=== PATIENT | female | born 1950 | race Caucasian/White ===

== ENCOUNTER 2016-07-30 | Outpatient (CLI) | payer MEDICARE, OTHER | END 2016-07-30 18:50 | disposition EMS.NT | DX: R07.9 Chest pain, unspecified (principal) ==

== ENCOUNTER 2016-08-07 | Outpatient (CLI) | payer MEDICARE, OTHER | END 2016-08-07 23:59 | disposition short-term general hospital (02) | DX: R07.9 Chest pain, unspecified (principal) | CPT/HCPCS: A0425; A0427 ==

== ENCOUNTER 2016-08-19 | Outpatient (CLI) | payer MEDICARE, OTHER | END 2016-08-19 08:35 | disposition short-term general hospital (02) | CPT/HCPCS: A0425; A0427 ==

== ENCOUNTER 2016-09-05 | Outpatient (CLI) | payer MEDICARE, OTHER | END 2016-09-05 20:26 | disposition short-term general hospital (02) | DX: R07.9 Chest pain, unspecified (principal) | CPT/HCPCS: A0425; A0427 ==

== ENCOUNTER 2016-09-14 | Outpatient (CLI) | payer MEDICARE, OTHER | END 2016-09-14 19:20 | disposition short-term general hospital (02) | DX: R07.9 Chest pain, unspecified (principal) | CPT/HCPCS: A0425; A0427; A0888 ==

== ENCOUNTER 2016-09-14 10:11 | Outpatient (CLI) | payer MEDICARE, OTHER | END 2016-09-14 10:12 | disposition home or self-care (01) | DX: Z12.31 Encounter for screening mammogram for malignant neoplasm of breast (principal) ==

== ENCOUNTER 2016-10-28 22:27 | Outpatient (CLI) | payer MEDICARE, OTHER | END 2016-10-28 22:28 | disposition home or self-care (01) | DX: G47.33 Obstructive sleep apnea (adult) (pediatric) (principal); Z68.36 Body mass index [BMI] 36.0-36.9, adult ==

== ENCOUNTER 2016-11-10 16:02 | Outpatient (CLI) | payer MEDICARE, OTHER | END 2016-11-10 23:59 | disposition critical access hospital (66) | DX: M79.652 Pain in left thigh (principal); M25.512 Pain in left shoulder; S00.511A Abrasion of lip, initial encounter; W01.0XXA Fall on same level from slipping, tripping and stumbling without subsequent striking against object, initial encounter; Y92.481 Parking lot as the place of occurrence of the external cause | CPT/HCPCS: A0425; A0429 ==

== ENCOUNTER 2016-11-10 16:22 | Emergency (ER) | payer MEDICARE, OTHER ==
[2016-11-10] MEDS ORDERED: ACETAMINOPHEN 325 MG TABLET PO STA ×2 (18:25→18:33)
[2016-11-10] MEDS ORDERED: ACETAMINOPHEN 325 MG TABLET PO ONE (18:28)
== END 2016-11-10 19:15 | disposition home or self-care (01) ==
DX: S00.81XA Abrasion of other part of head, initial encounter (principal); W01.198A Fall on same level from slipping, tripping and stumbling with subsequent striking against other object, initial encounter; Y92.488 Other paved roadways as the place of occurrence of the external cause; I10 Essential (primary) hypertension; E78.00 Pure hypercholesterolemia, unspecified; I25.10 Atherosclerotic heart disease of native coronary artery without angina pectoris; I25.2 Old myocardial infarction; Z79.01 Long term (current) use of anticoagulants; K21.9 Gastro-esophageal reflux disease without esophagitis; M19.90 Unspecified osteoarthritis, unspecified site
CPT/HCPCS: 70450; 73552; 73564; 99283; 99284; A9270

== ENCOUNTER 2016-12-13 15:22 | Outpatient (CLI) | payer MEDICARE, OTHER | END 2016-12-13 15:23 | disposition home or self-care (01) | LOC: SC 15:22 | PROVIDERS: ATTEND Nurse Practitioner Family | DX: G47.33 Obstructive sleep apnea (adult) (pediatric) (principal) | CPT/HCPCS: 99214; G0463; 99212 ==

== ENCOUNTER 2017-01-31 06:53 | Outpatient (CLI) | payer MEDICARE, OTHER ==
[2017-01-31 19:33] LABS: CALCIUM 9.4 mg/dL (8.5-10.3); CREATININE 0.7 mg/dL (0.4-1.0); POTASSIUM 3.2 mmol/L (3.5-5.0)
== END 2017-01-31 06:54 ==
LOC: LAB.WCP 06:53
PROVIDERS: ATTEND Family Medicine
DX: M79.89 Other specified soft tissue disorders (principal)
CPT/HCPCS: 36415; 80048

== ENCOUNTER 2017-08-22 08:00 | Outpatient (CLI) | payer MEDICARE, OTHER ==
[2017-08-22 13:20] LABS: ALBUMIN 3.8 g/dL (3.2-5.5); ALBUMIN/GLOBULIN RATIO 1.3 (1.0-2.2); ALKALINE PHOSPHATASE 88 IU/L (42-121); ALT ALANINE AMINOTRANSFERASE 21 IU/L (10-60); AST ASPARTATE AMINOTRANSFERASE 24 IU/L (10-42); BILIRUBIN,TOTAL 0.6 mg/dL (0.2-1.0); BUN - BLOOD UREA NITROGEN 20 mg/dL (6-20); CALCIUM 9.1 mg/dL (8.5-10.3); CARBON DIOXIDE - CO2 30 mmol/L (21-32); CHLORIDE 99 mmol/L (101-111); CHOL/HDL RATIO 3.9 (<4.4); CHOLESTEROL 185 mg/dL; CREATININE 0.7 mg/dL (0.4-1.0); GFR - MDRD 83 (>89); GLUCOSE 133 mg/dL (70-100); HDL CHOLESTEROL 48 mg/dL; LDL CHOLESTEROL,CALCULATED 91 mg/dL; LDL/HDL RATIO 1.9 (<4.4); SODIUM 138 mmol/L (135-145); TOTAL PROTEIN 6.7 g/dL (6.7-8.2); VLDL CHOLESTEROL 46 mg/dL
== END 2017-08-22 08:01 | disposition home or self-care (01) ==
LOC: LAB.WCP 08:00
PROVIDERS: ATTEND Family Medicine
DX: E78.5 Hyperlipidemia, unspecified (principal)
CPT/HCPCS: 36415; 80053; 80061; 83721

== ENCOUNTER 2017-08-29 17:29 | Emergency (ER) | payer MEDICARE, OTHER ==
[2017-08-29 18:53] LABS: BASOPHILS % (AUTO) 0.7 %; EOSINOPHILS # (AUTO) 0.1 10^3/uL (0.0-0.7); EOSINOPHILS % (AUTO) 1.8 %; HGB - HEMOGLOBIN 13.4 g/dL (12.0-16.0); LYMPHOCYTES % (AUTO) 31.5 %; MEAN CORPUSCULAR HEMOGLOBIN 29.9 pg (27.0-31.0); MEAN CORPUSCULAR HGB CONC 32.8 g/dL (32.0-36.0); MEAN CORPUSCULAR VOLUME 91.4 fL (81.0-99.0); MEAN PLATELET VOLUME 6.9 fL (7.9-10.8); MONOCYTES # (AUTO) 0.7 10^3/uL (0.0-1.0); MONOCYTES % (AUTO) 11.4 %; NEUTROPHILS # (AUTO) 3.4 10^3/uL (1.5-6.6); NEUTROPHILS % (AUTO) 54.6 %; PLT - PLATELET COUNT 322 10^3/uL (130-450); RED BLOOD COUNT 4.49 10^6/uL (4.20-5.40); RED CELL DISTRIBUTION WIDTH 13.5 % (12.0-15.0); WHITE BLOOD COUNT 6.3 x10^3/uL (4.8-10.8)
[2017-08-29 19:05] LABS: ALBUMIN 3.8 g/dL (3.2-5.5); ALBUMIN/GLOBULIN RATIO 1.2 (1.0-2.2); BILIRUBIN,TOTAL 0.4 mg/dL (0.2-1.0); CALCIUM 9.1 mg/dL (8.5-10.3); CREATININE 0.8 mg/dL (0.4-1.0); TOTAL PROTEIN 7.1 g/dL (6.7-8.2)
--- NOTE | 2017-08-29 19:52 | ED Physician Documentation ---
PD HPI CHEST PAIN - Stated complaint Stated Complaint: CHEST TIGHTNESS - Chief complaint Chief Complaint: Cardiac - History obtained from History obtained from: Patient - History of Present Illness Timing - onset: How many days ago (4-5) Timing - onset during: Light activity Timing - duration: Hours (she has had some chest dightness and aching feeling onset shortly after first dose of new statin medication.) Timing - details: Abrupt onset, Still present, Waxing and waning (notes it worse after dose of med each day (only thought of med causing the symptoms after noting the worsening after the med a few different days).) Quality: Tightness, Aching Location: Substernal, Left chest Radiation: Back Improved by: No: Rest, Oxygen Worsened by: Inspiration Associated symptoms: Shortness of air. No: Diaphoresis Similar symptoms before: Has not had sx before Recently seen: Clinic (regular exam and had cholesterol med changed due to insurance coverage.) Review of Systems Constitutional: denies: Fever, Chills Nose: denies: Rhinorrhea / runny nose, Congestion Throat: denies: Sore throat Cardiac: reports: Chest pain / pressure. denies: Palpitations, Pedal edema, Calf pain Respiratory: denies: Cough, Wheezing GI: denies: Abdominal Pain, Nausea, Vomiting, Diarrhea : denies: Dysuria Skin: denies: Rash Neurologic: denies: Generalized weakness, Focal weakness Psychiatric: reports: Anxiety. denies: Insomnia PD PAST MEDICAL HISTORY - Past Medical History Cardiovascular: Hypertension, High cholesterol, Coronary artery disease, Angina , [place] Respiratory: None Endocrine/Autoimmune: None GI: None, GERD, Hiatal hernia : None HEENT: None Psych: Depression Musculoskeletal: Osteoarthritis, Osteoporosis Derm: None - Past Surgical History Past Surgical History: Yes General: Hiatal hernia repair Ortho: Knee replacement Cardiovascular: Coronary stent HEENT: Cataracts, Tonsil/Adenoidectomy - Present Medications Home Medications: Ambulatory Orders Medication Instructions Recorded Confirmed Ascorbic Acid [Acerola C] 500 mg PO DAILY 12/18/12 11/10/16 Aspirin 81 mg PO DAILY 12/18/12 11/10/16 Biotin 1 mg PO DAILY 12/18/12 11/10/16 Calcium Carbonate [Tums] 500 mg PO DAILY 12/18/12 11/10/16 Cholecalciferol (Vitamin D3) 3,000 unit PO DAILY 12/18/12 11/10/16 [Vitamin D] Clopidogrel [Plavix] 75 mg PO DAILY 12/18/12 11/10/16 Duloxetine HCl [Cymbalta] 60 mg PO DAILY 12/18/12 11/10/16 Multivitamin [Multivitamins] 1 each PO DAILY 12/18/12 11/10/16 Nitroglycerin [Nitrostat] 0.4 mg SL Q5MIN PRN 12/18/12 11/10/16 [place]-3/Dha/Epa/Fish Oil [Fish Oil 1 each PO DAILY 12/18/12 11/10/16 [place]-3 Softgel] Rosuvastatin Calcium [Crestor] 40 mg PO DAILY 12/18/12 11/10/16 Valsartan [Diovan] 80 mg PO BID 12/18/12 11/10/16 Acetaminophen 1,000 mg PO Q8HR 09/11/15 11/10/16 Magnesium 250 mg PO DAILY 07/15/16 11/10/16 Metoprolol Succinate 75 mg PO DAILY 11/10/16 11/10/16 - Allergies Allergies/Adverse Reactions: Allergies Allergy/AdvReac Type Severity Reaction Status Date / Time desvenlafaxine Allergy Mild Headache Verified 07/15/16 10:48 [Desvenlafaxine] phenobarbital Allergy Mild depression Verified 07/15/16 10:48 desvenlafaxine succinate * Allergy Unknown Unknown Verified 07/15/16 10:48 [From Pristiq] bupropion HCl * Allergy Headache Verified 07/15/16 10:48 [From Wellbutrin] ibuprofen Allergy Unknown Verified 11/10/16 16:32 lidocaine Allergy Unknown Verified 11/10/16 16:32 propoxyphene HCl * Allergy Headache Verified 07/15/16 10:48 [From Darvon] aripiprazole [From Abilify] AdvReac tremors Verified 07/15/16 10:48 citalopram AdvReac Headache Verified 07/15/16 10:48 indomethacin AdvReac unknown Verified 07/15/16 10:48 tape Allergy Unknown Uncoded 11/10/16 16:32 - Social History Does the pt smoke?: No Smoking Status: Never smoker Does the pt drink ETOH?: Yes Does the pt have substance abuse?: No - Immunizations Immunizations are current?: Yes - POLST Patient has POLST: Yes POLST Status: Full Code PD ED PE NORMAL - Vitals Vital signs reviewed: Yes - General General: Alert and oriented X 3, No acute distress, Well developed/nourished - HEENT HEENT: Moist mucous membranes, Pharynx benign - Neck Neck: Supple, no meningeal sign, No adenopathy, No JVD - Cardiac Cardiac: RRR, No murmur - Respiratory Respiratory: Clear bilaterally, Other (some tenderness to palpation left chest parasternal. No rash nor sores. ) Results - Vitals Vitals: Oxygen O2 Source Room air - EKG (time done) 17:38 Rate: Rate (enter#) (74) Rhythm: NSR Sunflower: Normal Intervals: Normal AR QRS: Normal Ischemia: Normal ST segments. No: ST elevation c/w ischemia, ST depression, T wave inversion - Labs Labs: Laboratory Tests 08/29/17 08/29/17 08/29/17 18:48 18:48 18:48 WBC 6.3 RBC 4.49 Hgb 13.4 Hct 41.0 MCV 91.4 MCH 29.9 MCHC 32.8 RDW 13.5 Plt Count 322 MPV 6.9 L Neut # 3.4 Lymph # 2.0 [place] # 0.7 Eos # 0.1 Baso # 0.0 Absolute Nucleated RBC 0.00 Nucleated RBC % 0.0 Sodium 137 Potassium 2.8 L Chloride 96 L Carbon Dioxide 31 Anion Gap 10.0 BUN 23 H Creatinine 0.8 Estimated GFR (MDRD) 71 L Glucose 135 H Calcium 9.1 Total Bilirubin 0.4 AST 27 ALT 24 Alkaline Phosphatase 97 Troponin I < 0.04 Total Protein 7.1 Albumin 3.8 Globulin 3.3 Albumin/Globulin Ratio 1.2 Lipase 12 L PD MEDICAL DECISION MAKING - ED course Complexity details: considered differential (chest pressure for long duration that troponin should be present if infarct. She connects the onset of symptoms with just after taking new statin cholesterol med (had not had problems with Lipitor prior to it). She is going to stop the statin med and follow up with her PMD.), d/w patient Departure - Departure Disposition: 01 Home, Self Care Clinical Impression: Chest discomfort, Hypokalemia Condition: Stable Record reviewed to determine appropriate education?: Yes Instructions: Hypokalemia Dc, ED Chest Pain NonCardiac Follow-Up: Alayna Willis DO [Primary Care Provider] - Comments: Continue usual medications except for the new cholesterol medicine. Discontinue that for now. Use Maalox or Mylanta if needed for some chest discomfort as it may be esophageal related to the burping and gas. No signs of heart attack or heart injury at this time. Recheck if not improving over the next couple of days. Your potassium was low and so use her potassium supplement twice daily for the next week. Discharge Date/Time: 08/29/17 20:27
[2017-08-29] MEDS ORDERED: LIDOCAINE VISCOUS 2% 15 ML UDC MM STA (20:13)
[2017-08-29] MEDS ORDERED: MAG HYDROX/AL HYDROX/SIMETH 30 ML UDC PO STA (20:13)
[2017-08-29] MEDS ORDERED: POTASSIUM BICARB 25 MEQ TABLET PO STA (20:13)
[2017-08-29 20:17] VITALS: BP 150/82
== END 2017-08-29 20:27 | disposition home or self-care (01) ==
LOC: ED 17:29
DX: R07.89 Other chest pain (principal); E87.6 Hypokalemia; R94.31 Abnormal electrocardiogram [ECG] [EKG]; I25.10 Atherosclerotic heart disease of native coronary artery without angina pectoris; I25.2 Old myocardial infarction; I10 Essential (primary) hypertension; E78.00 Pure hypercholesterolemia, unspecified; Z96.659 Presence of unspecified artificial knee joint; Z95.5 Presence of coronary angioplasty implant and graft; Z79.82 Long term (current) use of aspirin
CPT/HCPCS: 36415; 80053; 83690; 84484; 85025; 93005; 99283; 99284; A9270

== ENCOUNTER 2017-09-06 08:00 | Outpatient (CLI) | payer MEDICARE, OTHER ==
[2017-09-06 12:50] LABS: CREATININE 0.7 mg/dL (0.4-1.0)
== END 2017-09-06 08:01 | disposition home or self-care (01) ==
LOC: LAB.WCP 08:00
PROVIDERS: ATTEND Family Medicine
DX: E87.6 Hypokalemia (principal)
CPT/HCPCS: 36415; 80048

== ENCOUNTER 2017-10-20 09:39 | Outpatient (CLI) | payer MEDICARE, OTHER ==
--- NOTE | 2017-10-21 11:15 | Mammography Report ---
DIGITAL SCREENING MAMMOGRAM: 10/20/2017 CLINICAL INDICATION: A 67-year-old, for screening. COMPARISON: 08/2016, 08/2014, 10/2013, 03/2013, 03/2012, 06/2010. TECHNIQUE: Routine CC and MLO projections were obtained of the breasts. FINDINGS: The breasts again demonstrate scattered fibroglandular densities bilaterally. Coarse and punctate, typically benign calcifications are present. No suspicious masses, clustered microcalcifications, or regions of architectural distortion are identified. IMPRESSION: BENIGN FINDINGS. RECOMMENDATION: ROUTINE ANNUAL SCREENING UNLESS OTHERWISE CLINICALLY INDICATED. BIRADS CATEGORY 2-BENIGN FINDINGS. STANDARD QUALIFYING STATEMENTS: 1. This examination was reviewed with the aid of Computer-Aided Detection (CAD). 2. A negative or benign imaging report should not delay biopsy if clinically suspicious findings are present. Consider surgical consultation if warranted. More than 5% of cancers are not identified by imaging. 3. Dense breasts may obscure an underlying neoplasm. TD: 10/21/2017 11:15
== END 2017-10-20 09:40 | disposition home or self-care (01) ==
LOC: DI.N 09:39
PROVIDERS: ATTEND Family Medicine
DX: Z12.31 Encounter for screening mammogram for malignant neoplasm of breast (principal)
CPT/HCPCS: 77067

== ENCOUNTER 2017-12-23 11:25 | Outpatient (CLI) | payer MEDICARE, OTHER ==
[2017-12-23 19:16] LABS: CALCIUM 9.4 mg/dL (8.5-10.3); CREATININE 0.7 mg/dL (0.4-1.0)
== END 2017-12-23 11:26 | disposition home or self-care (01) ==
LOC: LAB.WCP 11:25
PROVIDERS: ATTEND Family Medicine
DX: E87.6 Hypokalemia (principal)
CPT/HCPCS: 36415; 80048

== ENCOUNTER 2018-09-28 13:49 | Outpatient (CLI) | payer MEDICARE, OTHER ==
--- NOTE | 2018-09-29 09:48 | XRAY Report ---
Reason: BILATERAL HIP AND PELVIS PAIN Procedure Date: 09/28/2018 Accession Number: [id number] / [id number] Procedure: XR - Hips 2V BILAT CPT Code: FULL RESULT: EXAM: BILATERAL HIP RADIOGRAPHY EXAM DATE: 09/28/2018 02:49 PM. CLINICAL HISTORY: Bilateral hip and pelvis pain. COMPARISON: FEMUR 2V LT 11/10/2016 5:25 PM. TECHNIQUE: 2 views each. FINDINGS: Bones: Normal. No fractures or bone lesion. Right Hip: Status post right total hip arthroplasty without evidence of hardware failure or dislocation. Left Hip: Mild to moderate joint space narrowing. No dislocation. Soft Tissues: Normal. No soft tissue swelling. IMPRESSION: No fracture or dislocation. Status post right total hip arthroplasty and degenerative changes on the left. RADIA
== END 2018-09-28 13:50 | disposition home or self-care (01) ==
LOC: DI 13:49
PROVIDERS: ATTEND Anesthesiology Pain Medicine
DX: M16.12 Unilateral primary osteoarthritis, left hip (principal); Z96.641 Presence of right artificial hip joint; M25.551 Pain in right hip; R10.2 Pelvic and perineal pain
CPT/HCPCS: 73521

== ENCOUNTER 2019-03-13 08:00 | Outpatient (CLI) | payer MEDICARE, OTHER ==
[2019-03-13 18:41] LABS: BASOPHILS % (AUTO) 0.6 %; EOSINOPHILS # (AUTO) 0.2 10^3/uL (0.0-0.7); EOSINOPHILS % (AUTO) 3.5 %; LYMPHOCYTES # (AUTO) 1.4 10^3/uL (1.5-3.5); LYMPHOCYTES % (AUTO) 29.3 %; MEAN CORPUSCULAR HEMOGLOBIN 30.8 pg (27.0-31.0); MEAN CORPUSCULAR HGB CONC 31.4 g/dL (32.0-36.0); MEAN CORPUSCULAR VOLUME 98.2 fL (81.0-99.0); MEAN PLATELET VOLUME 9.4 fL (7.9-10.8); MONOCYTES # (AUTO) 0.6 10^3/uL (0.0-1.0); MONOCYTES % (AUTO) 12.6 %; NEUTROPHILS # (AUTO) 2.7 10^3/uL (1.5-6.6); NEUTROPHILS % (AUTO) 53.8 %; PLT - PLATELET COUNT 293 10^3/uL (130-450); RED BLOOD COUNT 4.54 10^6/uL (4.20-5.40); WHITE BLOOD COUNT 4.9 x10^3/uL (4.8-10.8)
[2019-03-13 18:51] LABS: ALBUMIN 3.7 g/dL (3.2-5.5); ALBUMIN/GLOBULIN RATIO 1.2 (1.0-2.2); ALKALINE PHOSPHATASE 62 IU/L (42-121); ALT ALANINE AMINOTRANSFERASE 22 IU/L (10-60); AST ASPARTATE AMINOTRANSFERASE 30 IU/L (10-42); BILIRUBIN,TOTAL 0.5 mg/dL (0.2-1.0); BUN - BLOOD UREA NITROGEN 19 mg/dL (6-20); CALCIUM 9.8 mg/dL (8.5-10.3); CARBON DIOXIDE - CO2 29 mmol/L (21-32); CHLORIDE 100 mmol/L (101-111); CHOL/HDL RATIO 3.1 (<4.4); CHOLESTEROL 148 mg/dL; CREATININE 0.6 mg/dL (0.4-1.0); GFR - MDRD 99 (>89); GLUCOSE 115 mg/dL (70-100); HDL CHOLESTEROL 47 mg/dL; LDL CHOLESTEROL,CALCULATED 69 mg/dL; LDL/HDL RATIO 1.5 (<4.4); SODIUM 141 mmol/L (135-145); TOTAL PROTEIN 6.8 g/dL (6.7-8.2); VLDL CHOLESTEROL 32 mg/dL
[2019-03-15 11:16] LABS: HEPATITIS C ANTIBODY NON-REACTIVE (NON-REACTIVE)
== END 2019-03-13 23:59 | disposition home or self-care (01) ==
LOC: LAB.WCP 08:00
PROVIDERS: ATTEND Family Medicine
DX: E87.6 Hypokalemia (principal); E78.5 Hyperlipidemia, unspecified; I25.10 Atherosclerotic heart disease of native coronary artery without angina pectoris; Z11.59 Encounter for screening for other viral diseases
CPT/HCPCS: 36415; 80053; 80061; 83721; 85025; 86803

== ENCOUNTER 2019-05-04 12:56 | Outpatient (CLI) | payer MEDICARE, OTHER ==
--- NOTE | 2019-05-07 11:14 | Mammography Report ---
Reason: ROUTINE MAMMO Procedure Date: 05/04/2019 Accession Number: [id number] / [id number] Procedure: MGN - Screening Mammo Dig Bilat CPT Code: FULL RESULT: EXAM: Screening Mammo Dig Bilat DATE: 05/04/2019 1:21 PM CLINICAL HISTORY: Screening encounter. History of early menses. TECHNIQUE: (B) - Bilateral CC and MLO views were obtained. COMPARISON: 10/20/2017 through 05/26/2009. PARENCHYMAL PATTERN: (A) - The breast(s) demonstrate(s) scattered fibroglandular densities. FINDINGS: There are coarse typically benign calcifications. There are no suspicious masses, calcifications, or areas of distortion. IMPRESSION: Benign findings. BI-RADS category 2. RECOMMENDATION: (ANNUAL) - Recommend routine annual screening mammography. BI-RADS CATEGORY: (2) - Benign Findings. STANDARD QUALIFYING STATEMENTS: 1. This examination was not reviewed with the aid of Computer-Aided Detection (CAD). 2. A negative or benign imaging report should not preclude biopsy if clinically suspicious findings are present. 3. Dense breasts may obscure an underlying neoplasm. 4. This examination was reviewed without the aid of 3D breast imaging (tomosynthesis).
== END 2019-05-04 12:57 | disposition home or self-care (01) ==
LOC: DI.N 12:56
DX: Z12.31 Encounter for screening mammogram for malignant neoplasm of breast (principal)
CPT/HCPCS: 77067

== ENCOUNTER 2019-08-14 08:00 | Outpatient (CLI) | payer MEDICARE, OTHER ==
[2019-08-14 18:42] LABS: BASOPHILS # (AUTO) 0.1 10^3/uL (0.0-0.1); BASOPHILS % (AUTO) 0.9 %; EOSINOPHILS # (AUTO) 0.2 10^3/uL (0.0-0.7); EOSINOPHILS % (AUTO) 3.1 %; HGB - HEMOGLOBIN 14.2 g/dL (12.0-16.0); LYMPHOCYTES # (AUTO) 1.2 10^3/uL (1.5-3.5); LYMPHOCYTES % (AUTO) 21.2 %; MEAN CORPUSCULAR HEMOGLOBIN 31.3 pg (27.0-31.0); MEAN CORPUSCULAR HGB CONC 31.5 g/dL (32.0-36.0); MEAN CORPUSCULAR VOLUME 99.3 fL (81.0-99.0); MEAN PLATELET VOLUME 9.4 fL (7.9-10.8); MONOCYTES # (AUTO) 0.7 10^3/uL (0.0-1.0); MONOCYTES % (AUTO) 11.3 %; NEUTROPHILS # (AUTO) 3.7 10^3/uL (1.5-6.6); NEUTROPHILS % (AUTO) 63.2 %; PLT - PLATELET COUNT 285 10^3/uL (130-450); RED BLOOD COUNT 4.54 10^6/uL (4.20-5.40); RED CELL DISTRIBUTION WIDTH 12.6 % (12.0-15.0); WHITE BLOOD COUNT 5.9 x10^3/uL (4.8-10.8)
[2019-08-14 19:14] LABS: ALBUMIN 3.7 g/dL (3.2-5.5); ALBUMIN/GLOBULIN RATIO 1.2 (1.0-2.2); ALKALINE PHOSPHATASE 73 IU/L (42-121); ALT ALANINE AMINOTRANSFERASE 26 IU/L (10-60); AST ASPARTATE AMINOTRANSFERASE 27 IU/L (10-42); BILIRUBIN,TOTAL 0.6 mg/dL (0.2-1.0); BUN - BLOOD UREA NITROGEN 18 mg/dL (6-20); CALCIUM 9.6 mg/dL (8.5-10.3); CARBON DIOXIDE - CO2 31 mmol/L (21-32); CHLORIDE 102 mmol/L (101-111); CHOL/HDL RATIO 3.1 (<4.4); CHOLESTEROL 157 mg/dL; CREATININE 0.6 mg/dL (0.4-1.0); GFR - MDRD 99 (>89); GLUCOSE 116 mg/dL (70-100); HDL CHOLESTEROL 51 mg/dL; LDL CHOLESTEROL,CALCULATED 71 mg/dL; LDL/HDL RATIO 1.4 (<4.4); SODIUM 144 mmol/L (135-145); TOTAL PROTEIN 6.7 g/dL (6.7-8.2); VLDL CHOLESTEROL 35 mg/dL
== END 2019-08-14 23:59 | disposition home or self-care (01) ==
LOC: LAB.WCP 08:00
PROVIDERS: ATTEND Family Medicine
DX: I10 Essential (primary) hypertension (principal); E78.5 Hyperlipidemia, unspecified
CPT/HCPCS: 36415; 80053; 80061; 83721; 85025

== ENCOUNTER 2019-09-27 13:33 | Outpatient (CLI) | payer MEDICARE, OTHER | END 2019-09-27 13:34 | disposition short-term general hospital (02) | LOC: EMS 13:33 | PROVIDERS: ATTEND Surgery | DX: R42 Dizziness and giddiness (principal) | CPT/HCPCS: A0425; A0429 ==

== ENCOUNTER 2019-10-03 22:08 | Outpatient (CLI) | payer MEDICARE, OTHER | END 2019-10-03 23:59 | disposition short-term general hospital (02) | LOC: EMS 22:08 | PROVIDERS: ATTEND Surgery | DX: R07.89 Other chest pain (principal); R11.0 Nausea | CPT/HCPCS: A0425; A0433 ==

== ENCOUNTER 2020-02-20 07:48 | Outpatient (CLI) | payer MEDICARE, OTHER ==
[2020-02-20 12:18] LABS: ALBUMIN 3.7 g/dL (3.2-5.5); ALBUMIN/GLOBULIN RATIO 1.1 (1.0-2.2); ALKALINE PHOSPHATASE 86 IU/L (42-121); ALT ALANINE AMINOTRANSFERASE 22 IU/L (10-60); AST ASPARTATE AMINOTRANSFERASE 27 IU/L (10-42); BILIRUBIN,TOTAL 0.5 mg/dL (0.2-1.0); BUN - BLOOD UREA NITROGEN 20 mg/dL (6-20); CALCIUM 9.2 mg/dL (8.5-10.3); CARBON DIOXIDE - CO2 28 mmol/L (21-32); CHLORIDE 101 mmol/L (101-111); CHOL/HDL RATIO 3.2 (<4.4); CHOLESTEROL 158 mg/dL; CREATININE 0.8 mg/dL (0.4-1.0); GLUCOSE 136 mg/dL (70-100); HDL CHOLESTEROL 50 mg/dL; LDL CHOLESTEROL,CALCULATED 77 mg/dL; LDL/HDL RATIO 1.5 (<4.4); MAGNESIUM 1.8 mg/dL (1.7-2.8); SODIUM 138 mmol/L (135-145); VLDL CHOLESTEROL 31 mg/dL
[2020-02-20 12:25] LABS: BASOPHILS % (AUTO) 0.4 %; EOSINOPHILS # (AUTO) 0.1 10^3/uL (0.0-0.7); EOSINOPHILS % (AUTO) 2.7 %; HGB - HEMOGLOBIN 14.7 g/dL (12.0-16.0); LYMPHOCYTES # (AUTO) 1.1 10^3/uL (1.5-3.5); MEAN CORPUSCULAR HEMOGLOBIN 31.4 pg (27.0-31.0); MEAN CORPUSCULAR HGB CONC 33.3 g/dL (32.0-36.0); MEAN CORPUSCULAR VOLUME 94.2 fL (81.0-99.0); MEAN PLATELET VOLUME 9.4 fL (7.9-10.8); MONOCYTES # (AUTO) 0.5 10^3/uL (0.0-1.0); MONOCYTES % (AUTO) 11.4 %; NEUTROPHILS # (AUTO) 2.7 10^3/uL (1.5-6.6); NEUTROPHILS % (AUTO) 60.1 %; PLT - PLATELET COUNT 311 10^3/uL (130-450); RED BLOOD COUNT 4.68 10^6/uL (4.20-5.40); RED CELL DISTRIBUTION WIDTH 12.9 % (12.0-15.0); WHITE BLOOD COUNT 4.5 x10^3/uL (4.8-10.8)
[2020-02-20 12:37] LABS: HB2 TOTAL 15.6 g/dL; HEMOGLOBIN A1C 0.62 g/dL; HEMOGLOBIN A1C % 5.8 % (4.6-6.2)
== END 2020-02-20 23:59 | disposition home or self-care (01) ==
LOC: LAB.WCP 07:48
PROVIDERS: ATTEND Family Medicine
DX: I10 Essential (primary) hypertension (principal); R73.01 Impaired fasting glucose; E87.6 Hypokalemia; E78.5 Hyperlipidemia, unspecified; E83.42 Hypomagnesemia
CPT/HCPCS: 36415; 80053; 80061; 83036; 83721; 83735; 84443; 85025

== ENCOUNTER 2020-03-28 08:00 | Outpatient (CLI) | payer MEDICARE, OTHER ==
[2020-03-28 18:50] LABS: CALCIUM 9.8 mg/dL (8.5-10.3); CREATININE 0.8 mg/dL (0.4-1.0)
== END 2020-03-28 23:59 | disposition home or self-care (01) ==
LOC: LAB.WCP 08:00
PROVIDERS: ATTEND Family Medicine
DX: E87.6 Hypokalemia (principal)
CPT/HCPCS: 36415; 80048

== ENCOUNTER 2020-04-06 14:27 | Emergency (ER) | payer MEDICARE, OTHER ==
[2020-04-06] MEDS ORDERED: KETAMINE 500 MG/10 ML VIAL IVP STA (14:46)
--- NOTE | 2020-04-06 14:48 | ED Physician Documentation ---
PD HPI MHE - Stated complaint Stated Complaint: MHE - Chief complaint Chief Complaint: MHE - History obtained from History obtained from: Patient - Additional information Additional information: 70-year-old woman with history of anxiety and depression, she has had worse depression over the last couple of months and has her Cymbalta increased initially to 90 mg on March 18 and then last week up to 120 mg. Despite this, she is profoundly depressed, finds no [place] in anything. Just laying in bed all day. Not eating. No suicidal ideation, but wonders if it might be better if she just went to sleep and did not wake up. Review of Systems Constitutional: reports: Fatigue. denies: Fever, Chills Cardiac: reports: Reviewed and negative Respiratory: reports: Reviewed and negative PD PAST MEDICAL HISTORY - Past Medical History Cardiovascular: Hypertension, High cholesterol, Coronary artery disease, Angina, [place] Respiratory: None Endocrine/Autoimmune: None GI: None, GERD, Hiatal hernia : None HEENT: None Psych: Depression Musculoskeletal: Osteoarthritis, Osteoporosis Derm: None - Past Surgical History Past Surgical History: Yes General: Hiatal hernia repair Ortho: Knee replacement Cardiovascular: Coronary stent HEENT: Cataracts, Tonsil/Adenoidectomy - Present Medications Home Medications: Ambulatory Orders Medication Instructions Recorded Confirmed Ascorbic Acid [Acerola C] 500 mg PO DAILY 12/18/12 11/10/16 Aspirin 81 mg PO DAILY 12/18/12 11/10/16 Biotin 1 mg PO DAILY 12/18/12 11/10/16 Calcium Carbonate [Tums] 500 mg PO DAILY 12/18/12 11/10/16 Cholecalciferol (Vitamin D3) 3,000 unit PO DAILY 12/18/12 11/10/16 [Vitamin D] Clopidogrel [Plavix] 75 mg PO DAILY 12/18/12 11/10/16 Duloxetine HCl [Cymbalta] 60 mg PO DAILY 12/18/12 11/10/16 Multivitamin [Multivitamins] 1 each PO DAILY 12/18/12 11/10/16 Nitroglycerin [Nitrostat] 0.4 mg SL Q5MIN PRN 12/18/12 11/10/16 [place]-3/Dha/Epa/Fish Oil [Fish Oil 1 each PO DAILY 12/18/12 11/10/16 [place]-3 Softgel] Rosuvastatin Calcium [Crestor] 40 mg PO DAILY 12/18/12 11/10/16 Valsartan [Diovan] 80 mg PO BID 12/18/12 11/10/16 Acetaminophen 1,000 mg PO Q8HR 09/11/15 11/10/16 Magnesium 250 mg PO DAILY 07/15/16 11/10/16 Metoprolol Succinate 75 mg PO DAILY 11/10/16 11/10/16 - Allergies Allergies/Adverse Reactions: Allergies Allergy/AdvReac Type Severity Reaction Status Date / Time desvenlafaxine Allergy Mild Headache Verified 04/06/20 14:43 [Desvenlafaxine] phenobarbital Allergy Mild depression Verified 04/06/20 14:43 desvenlafaxine succinate * Allergy Unknown Unknown Verified 04/06/20 14:43 [From Pristiq] bupropion HCl * Allergy Headache Verified 04/06/20 14:43 [From Wellbutrin] ibuprofen Allergy Unknown Verified 04/06/20 14:43 lidocaine Allergy Unknown Verified 04/06/20 14:43 propoxyphene HCl * Allergy Headache Verified 04/06/20 14:43 [From Darvon] aripiprazole [From Abilify] AdvReac tremors Verified 04/06/20 14:43 citalopram AdvReac Headache Verified 04/06/20 14:43 indomethacin AdvReac unknown Verified 04/06/20 14:43 tape Allergy Unknown Uncoded 11/10/16 16:32 - Social History Does the pt smoke?: No Smoking Status: Never smoker Does the pt drink ETOH?: Yes Does the pt have substance abuse?: No - Immunizations Immunizations are current?: Yes - POLST Patient has POLST: Yes POLST Status: Full Code PD ED PE NORMAL - Vitals Vital signs reviewed: Yes - General General: Alert and oriented X 3, Other (Tearful at times) - HEENT HEENT: PERRL, EOMI - Neck Neck: Supple, no meningeal sign, No bony TTP - Neuro Neuro: Alert and oriented X 3, Normal speech Results - Vitals Vitals: Vital Signs - 24 hr 04/06/20 04/06/20 04/06/20 14:43 16:00 16:30 Temperature 36.4 C L Heart Rate 76 71 63 Respiratory 16 15 16 Rate Blood Pressure 147/100 H 128/84 H 133/82 H O2 Saturation 98 96 96 04/06/20 17:00 Temperature Heart Rate 65 Respiratory 20 Rate Blood Pressure 128/77 O2 Saturation 94 Oxygen O2 Source Room air - Labs Labs: Laboratory Tests 04/06/20 04/06/20 14:58 14:58 WBC 6.2 RBC 4.98 Hgb 16.1 H Hct 46.0 MCV 92.4 MCH 32.3 H MCHC 35.0 RDW 12.0 Plt Count 278 MPV 9.0 Neut # (Auto) 4.1 Lymph # (Auto) 1.4 L [place] # (Auto) 0.7 Eos # (Auto) 0.1 Baso # (Auto) 0.0 Absolute Nucleated RBC 0.00 Nucleated RBC % 0.0 Sodium 136 Potassium 2.8 L Chloride 100 L Carbon Dioxide 25 Anion Gap 11.0 BUN 16 Creatinine 0.8 Estimated GFR (MDRD) 71 L Glucose 129 H Calcium 9.7 Total Bilirubin 0.7 AST 27 ALT 27 Alkaline Phosphatase 76 Total Protein 7.3 Albumin 4.0 Globulin 3.3 Albumin/Globulin Ratio 1.2 Lipase 20 L Ethyl Alcohol < 5.0 PD MEDICAL DECISION MAKING - ED course ED course: 70-year-old woman with severe depression and anhedonia. Not much anxiety right now. We discussed options for treatment including but not limited to hospitalization, ketamine infusion and/or tele-psychiatric consultation and she opted for the ketamine. She did have some bad dissociative effects from the ketamine but this resolved with time and Early cessation of the drip. Once the side effects wore off she did feel like her depression had improved and declined further help tonight. She did have some low potassium which was treated orally and she is on a potassium supplement and was advised to go from twice daily to 3 times daily for a few days. Departure - Departure Disposition: 01 Home, Self Care Clinical Impression: Hypokalemia Depression Qualifiers: Depression Type: major depressive disorder Major depression recurrence: recurrent Active/Remission status: currently active Major depression episode severity: severe Psychotic features: without psychotic features Qualified Code(s): F33.2 - Major depressive disorder, recurrent severe without psychotic features Condition: Good Record reviewed to determine appropriate education?: Yes Instructions: Hypokalemia Dc, ED Depression Comments: Potassium fairly low at 2.8 today, for the next few days recommend increasing your potassium supplement from twice daily to 3 times daily. Follow-up with your psychiatrist tomorrow. Recommend dosing of Cymbalta at 90 mg a day pending follow-up.
[2020-04-06] MEDS ORDERED: KETAMINE 40 MG in SODIUM CHLORIDE 0.9% 100ML 100 ML IV STA (14:52)
[2020-04-06 15:16] LABS: BASOPHILS % (AUTO) 0.5 %; EOSINOPHILS # (AUTO) 0.1 10^3/uL (0.0-0.7); EOSINOPHILS % (AUTO) 1.1 %; HGB - HEMOGLOBIN 16.1 g/dL (12.0-16.0); LYMPHOCYTES # (AUTO) 1.4 10^3/uL (1.5-3.5); LYMPHOCYTES % (AUTO) 21.9 %; MEAN CORPUSCULAR HEMOGLOBIN 32.3 pg (27.0-31.0); MEAN CORPUSCULAR VOLUME 92.4 fL (81.0-99.0); MONOCYTES # (AUTO) 0.7 10^3/uL (0.0-1.0); MONOCYTES % (AUTO) 10.5 %; NEUTROPHILS # (AUTO) 4.1 10^3/uL (1.5-6.6); NEUTROPHILS % (AUTO) 65.8 %; PLT - PLATELET COUNT 278 10^3/uL (130-450); RED BLOOD COUNT 4.98 10^6/uL (4.20-5.40); WHITE BLOOD COUNT 6.2 x10^3/uL (4.8-10.8)
[2020-04-06 15:27] LABS: ALBUMIN/GLOBULIN RATIO 1.2 (1.0-2.2); ALKALINE PHOSPHATASE 76 IU/L (42-121); ALT ALANINE AMINOTRANSFERASE 27 IU/L (10-60); AST ASPARTATE AMINOTRANSFERASE 27 IU/L (10-42); BILIRUBIN,TOTAL 0.7 mg/dL (0.2-1.0); BUN - BLOOD UREA NITROGEN 16 mg/dL (6-20); CALCIUM 9.7 mg/dL (8.5-10.3); CARBON DIOXIDE - CO2 25 mmol/L (21-32); CHLORIDE 100 mmol/L (101-111); CREATININE 0.8 mg/dL (0.4-1.0); GLUCOSE 129 mg/dL (70-100); LIPASE 20 U/L (22-51); SODIUM 136 mmol/L (135-145); TOTAL PROTEIN 7.3 g/dL (6.7-8.2)
[2020-04-06] MEDS ORDERED: ONDANSETRON 4 MG/2 ML VIAL IVP STA (15:43)
[2020-04-06] MEDS ORDERED: POTASSIUM CHLORIDE 20 MEQ TABLET PO STA (16:02)
[2020-04-06 17:07] VITALS: BP 128/77
== END 2020-04-06 17:27 | disposition home or self-care (01) ==
LOC: ED 14:27
DX: E87.6 Hypokalemia (principal); F33.2 Major depressive disorder, recurrent severe without psychotic features; I10 Essential (primary) hypertension; E78.00 Pure hypercholesterolemia, unspecified; I25.10 Atherosclerotic heart disease of native coronary artery without angina pectoris; Z95.5 Presence of coronary angioplasty implant and graft; I25.2 Old myocardial infarction; Z96.659 Presence of unspecified artificial knee joint; Z79.82 Long term (current) use of aspirin
CPT/HCPCS: 36415; 80053; 83690; 85025; 96365; 96375; 99283; 99284; A9270; 80320

== ENCOUNTER 2020-05-28 15:28 | Outpatient (CLI) | payer MEDICARE, OTHER ==
[2020-05-28 15:56] LABS: ALBUMIN 3.8 g/dL (3.2-5.5); ALBUMIN/GLOBULIN RATIO 1.2 (1.0-2.2); BILIRUBIN,TOTAL 0.9 mg/dL (0.2-1.0); CALCIUM 9.4 mg/dL (8.5-10.3); CREATININE 0.9 mg/dL (0.4-1.0); TOTAL PROTEIN 6.9 g/dL (6.7-8.2)
[2020-05-28] MEDS ORDERED: GADOBUTROL 10 MMOL/10 ML VIAL ONE (17:12)
== END 2020-05-28 15:29 | disposition home or self-care (01) ==
LOC: DI 15:28
PROVIDERS: ATTEND Family Medicine
DX: K14.6 Glossodynia (principal); E83.42 Hypomagnesemia; I10 Essential (primary) hypertension; I25.10 Atherosclerotic heart disease of native coronary artery without angina pectoris; E78.5 Hyperlipidemia, unspecified; Z53.9 Procedure and treatment not carried out, unspecified reason
CPT/HCPCS: 36415; 80053

== ENCOUNTER 2020-06-09 11:17 | Outpatient (CLI) | payer MEDICARE, OTHER ==
--- NOTE | 2020-06-09 12:06 | SLEEP CARE CONSULTATION ---
Information from patient questionnaire entered by Chetna Ayala. I have reviewed and concur with the information entered by Chetna Ayala. This document represents the service I personally performed and the decisions made by , Elin Crouch ARNP. History of Present Illness Service Date and Time: 06/09/2020 1117 Reason for Visit: New patient, Previously diagnosed sleep apnea (mild -14.5 AHI in 2015), Re-establish care Chief Complaint: reports: Unrefreshed sleep, Snoring, Fatigue, Other (she has clinical depression since February 2020). denies: Insomnia, Excessive daytime sleepiness, Observed pauses in breathing (she sleeps alone), Frequent awakenings at night Date of Onset: snoring - years, unrefreshed sleep - 6 months Usual bedtime: 10:30 pm Time it takes to fall asleep: 30 mins Snores at night: Yes Observed to quit breathing while asleep: No Sleeps alone due to snoring: Yes Number of times waking at night: 1 Reasons for waking at night: reports: Snoring, Bathroom. denies: Choking, Gasping for air Toss, Turn, or Twitch while sleeping: Yes Recalls having dreams: Yes Usually gets out of bed at: 9am - 1 pm Feels refreshed in the morning: No Morning headache: Yes (sometimes; every day, dull headache, can last all day) Sleepy or fatigued during the day: Yes (sometimes) Ever fallen asleep while driving: No Takes day naps: No (not now) Dreams during day naps: Yes Prior sleep studies: Yes Year and Where: 2015 - [facility] Type of Sleep Study: Polysomnography Additional HPI information: FABIO DAVIDSON was previously diagnosed to have mild, AHI 14.5, obstructive sleep apnea-hypopnea syndrome in 2017 and returns today to reestablish care. She continues to have issues with snoring and unrefreshed sleep. She has been having some clinical depression since February of this year and her PCP has sent her here to see if her sleep apnea is contributing factor. She states she never followed through since her last appointment in 2017 and did not start CPAP therapy. She and her no longer sleep in the same room due to snoring, hers and his. She does not know if her fatigue and sleepiness during the day are due to her depression or sleep apnea. - Parasomnia Symptoms Ever been unable to move upon waking from sleep: No Walks in sleep: No Talks in sleep: Yes Ever acted out dreams in sleep: Yes Ever felt weak in the knees when startled or emotional: Yes Bothered by creepy, crawly, restless sensations in legs: No Problems with memory or concentration: Yes Subjective Initial [place] Sleepiness Scale score: 5 (in 2016) Current [place] Sleepiness Scale score: 5 Past Medical History Past Medical History: reports: Hypertension, Coronary Heart Disease ([address], on Plavix), Anxiety, Depression (recently). 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 Patient is and lives in [place]. Have you smoked in the past 12 months: No Alcohol use: Yes Alcohol amount and frequency: 1/2 glass once in a while Caffeine use: No Family History Family history of sleep disordered breathing: Yes (mother) Family Hx Sleep Apnea: Mother: Snoring, Sibling: Snoring Allergies and Home Medications Drug allergies reviewed: Yes (several as listed) Home medication list reviewed: Yes Allergy and home medication list: Cymbalta 60 mg Rouvastatin 40 mg Lisinopril 10 mg Metoprolol 100 mg x2 Plavix 75 mg mirtazapine 7.5 mg Multivitamin Vitamin D 1200 units Calcium and Zinc Vitamin C 1000 mg Review of Systems Cardiovascular: reports: high blood pressure. denies: palpitations, chest pain, irregular heart rate or pulse Respiratory: denies: shortness of breath Gastrointestinal: reports: heartburn. denies: difficulty swallowing Urinary: reports: frequency, urgency Neurological: reports: headaches. denies: seizure, head trauma, speech dysfunction, gait or balance problems Psychiatric: reports: depression Ear/Nose/Throat: reports: sinus problems, dry mouth/throat, tonsillectomy, wisdom teeth removed. denies: nasal congestion, nose bleeds Endocrine: denies: thyroid disease Musculoskeletal: denies: muscle pain or cramping, mobility problems Immunologic: denies: allergies to food or environment Physical Exam Blood Pressure: 131/86 Cuff size: wrist Heart Rate: 79 O2 Saturation: 99 Height: 5 ft 5 in Weight: 215 lb Body Mass Index: 35.7 BMI Classification: Obese Neck circumference: 16.5 (inches) HEENT: No craniofacial malformation Nostrils: patent to airflow Turbinates: normal Septum: midline Mouth and throat: narrow oropharynx Uvula visualization: 25% Mallampati Class III Tongue: enlarged in size with teeth anderson on lateral edges Tonsils: absent bilaterally Chin and jaw: normal size and position Neck: normal w/o lymphadenopathy or thyromegaly Heart: regular rate and rhythm Lungs: clear bilaterally Impression and Plan 1. Suspected Obstructive Sleep Apnea-Hypopnea Syndrome, as previously diagnosed and as suggested by a history of loud and irregular snoring, morning headache, unrefreshed sleep, and cognitive impairment. I reviewed with patient that a narrow oropharynx and obesity are common predisposing factors for obstructive sleep apnea-hypopnea syndrome. Patient has been having clinical depression since February and would like to see if sleep apnea is contributing to her symptoms. I recommend proceeding to polysomnography to confirm the diagnosis and to assess severity. If the patient has significant sleep disordered breathing, a manual CPAP titration study will also be performed to find the optimal treatment pressure. I informed the patient of what the sleep studies involve and after some discussion, obtained agreement to proceed. The pathophysiology of obstructive sleep apnea-hypopnea syndrome was discussed with the patient and health risks of cardiovascular and cerebrovascular disease if not treated. Risks of drowsy driving discussed in detail and patient advised to avoid long distance driving and to bleach boiler puller at the first sign of drowsiness. Patient agreed to plan. * Schedule polysomnography +- manual CPAP titration study. * Avoid long distance driving or driving when feeling sleepy. * Avoid alcohol, sedative and muscle relaxant around bedtime. * Attempt to lose weight. * Review instructions provided by trained office staff on how to prepare for the sleep study. * Return for follow-up after sleep study completed. Counseling Topics: Sleeping position, Weight loss health impact Time Spent with Patient (minutes): 36
[2020-06-09 12:08] VITALS: BP 131/86
== END 2020-06-09 11:18 | disposition home or self-care (01) ==
LOC: SC 11:17
PROVIDERS: ATTEND Nurse Practitioner Family
DX: G47.33 Obstructive sleep apnea (adult) (pediatric) (principal); E66.9 Obesity, unspecified; Z68.35 Body mass index [BMI] 35.0-35.9, adult
CPT/HCPCS: 99203; 99212

== ENCOUNTER 2020-06-09 19:30 | Outpatient (CLI) | payer MEDICARE, OTHER | END 2020-06-09 19:31 | disposition home or self-care (01) | LOC: SC 19:30 | PROVIDERS: ATTEND Nurse Practitioner Family | DX: G47.33 Obstructive sleep apnea (adult) (pediatric) (principal); E66.9 Obesity, unspecified; Z68.35 Body mass index [BMI] 35.0-35.9, adult | CPT/HCPCS: 99203; G0463; 95806; 99212 ==

== ENCOUNTER 2020-08-11 19:28 | Outpatient (CLI) | payer MEDICARE, OTHER | END 2020-08-11 19:29 | disposition home or self-care (01) | LOC: SC 19:28 | PROVIDERS: ATTEND Internal Medicine Pulmonary Disease | DX: G47.33 Obstructive sleep apnea (adult) (pediatric) (principal); G47.61 Periodic limb movement disorder; I10 Essential (primary) hypertension; F32.9 Major depressive disorder, single episode, unspecified; E66.9 Obesity, unspecified; Z68.35 Body mass index [BMI] 35.0-35.9, adult | CPT/HCPCS: 95810 ==

== ENCOUNTER 2020-09-02 14:38 | Outpatient (CLI) | payer MEDICARE, OTHER ==
--- NOTE | 2020-09-02 15:13 | SLEEP CARE CONSULTATION ---
Information from patient questionnaire entered by Chetna Ayala. I have reviewed and concur with the information entered by Chetna Ayala. This document represents the service I personally performed and the decisions made by , Elin Crouch ARNP. History of Present Illness Service Date and Time: 09/02/2020 1438 Initial [place] Sleepiness Scale score: 5 (in 2016) Current [place] Sleepiness Scale score: 9 Additional HPI information: FABIO DAVIDSON returns for follow up and results of the recently performed home sleep study. I explained the pathophysiology behind obstructive sleep apnea. We then spent quite a bit of time discussing different treatment options. For mild obstructive sleep apnea, surgery and oral appliance are alternatives to nasal CPAP therapy but in moderate or severe cases, nasal CPAP is the most effective and reliable treatment. Because apnea is primarily in supine position, then positional management therapy could be effective. Methods discussed such as positioning with pillows, using a T-shirt with tennis balls in the back, and shown commercial products that have a pillow format on back to prevent supine sleep. I reviewed the impact of weight changes on sleep apnea and strongly recommended losing weight. After some discussion, the patient opted to go with the nasal CPAP therapy. Nasal autoCPAP set at 4-15 cmH20 will be ordered with rationale explained. A manual titration study will be ordered if unable to find optimal pressure with office adjustments. I explained how CPAP machine works with sample devices [employer] Dreamstation and [employer] [id number] and what to expect when using the machine. Using CPAP every night in order to get used to it was emphasized. Patient advised to put CPAP mask on before getting into bed so as not to fall asleep without CPAP. To assist acclimation to CPAP use, it could also be used for a short time during day while reading or watching TV. The patient was instructed to call the CPAP supplier to discuss any mechanical problem that may occur. If the mask given is uncomfortable or is difficult to keep on through the night even with adjustment, contact the CPAP supplier as many will replace with another mask style if notified before 30 days. If snoring or perceives is not getting enough air or too much air from the machine, notify this office. [facility] patient education PAP tips reviewed and given to patient. Patient counseled not drink alcohol less than 4 hours before bedtime as it can increase snoring and apnea. Patient was cautioned about risks of drowsy driving until sleepiness symptoms resolve. Sleep Study - Results Type of Sleep Study: Home sleep study Prior sleep studies: Yes Year and [facility] Sleep Study results: IMPRESSION: The quality of the study is good. The patient had normal sleep efficiency. The sleep architecture was relatively normal considering the first-night effect. Respiratory monitoring showed mild obstructive sleep apnea-hypopnea (AHI = 13.0) associated with mild hypoxia (devaughn oxygen saturation of 88%) but not sleep fragmentation. The patient did not sleep supine during this study (supine AHI = 0; non-supine = 13.05). Snore was loud in intensity. There was moderate periodic leg movement of sleep not associated with sleep fragmentation. Cardiac rhythm was normal sinus rhythm without significant arrhythmia. No abnormal behavior (parasomnia) observed during the night. Allergies and Home Medications Home medication list reviewed: Yes (new depression medication) Review of Systems Review of systems same as previous: Yes (no changes) Physical Exam Heart Rate: 66 O2 Saturation: 99 Height: 5 ft 5 in Weight: 218 lb Body Mass Index: 36.2 BMI Classification: Obese Impression and Plan 1. Obstructive Sleep Apnea-Hypopnea Syndrome, mild, with lowest oxygen saturation of 88%. Obviously this is the cause of the patients symptoms of unrefreshed sleep, and excessive daytime sleepiness. Positive pressure therapy could benefit hypertension, coronary heart disease, anxiety and depression. As mentioned above, the patient will be started on nasal autoCPAP therapy with pressure set at 4-15 cmH2O. A manual titration study will be completed if unable to find optimal treatment pressure with office adjustments. Compliance guidelines also reviewed. A copy of compliance guidelines will be given for reference at check out. 2. Periodic limb movement, moderate, that did not fragment patients sleep. Periodic limb movement of sleep (PLMS) is characterized by episodes of repetitive limb movements that occur during sleep and usually involve the lower limbs. Patient was advised that no treatment is needed at this time. If symptoms increase, then further evaluation is indicated. * Nasal auto CPAP therapy, pressure at 4-15 cm H2O. * Attempt to lose weight. * Avoid alcohol consumption near bedtime. * Avoid supine sleep until using CPAP. * The patient is again cautioned about driving until sleepiness completely resolves. * Return one month after CPAP obtained. I will assess response to therapy and compliance at that time. Counseling Topics: Weight loss health impact Visit Type: In Office Time Spent with Patient (minutes): 16 Provider Statement: I spent 100% of the Face to Face Visit with the patient with greater than 50% spent counseling the patient and coordination of care.
== END 2020-09-02 14:39 | disposition home or self-care (01) ==
LOC: SC 14:38
PROVIDERS: ATTEND Nurse Practitioner Family
DX: G47.33 Obstructive sleep apnea (adult) (pediatric) (principal); G47.61 Periodic limb movement disorder; E66.9 Obesity, unspecified; Z68.36 Body mass index [BMI] 36.0-36.9, adult
CPT/HCPCS: 99212; G0463

== ENCOUNTER 2020-11-04 14:32 | Outpatient (CLI) | payer MEDICARE, OTHER ==
--- NOTE | 2020-11-04 15:09 | SLEEP CARE CONSULTATION ---
Information from patient questionnaire entered by All King. I have reviewed and concur with the information entered by All King. This document represents the service I personally performed and the decisions made by , Elin Crouch ARNP. History of Present Illness Service Date and Time: 11/04/2020 1432 Previous diagnosis: Mild, Obstructive Sleep Apnea-Hypopnea Syndrome AHI: 13.0 ((14.5 in 2016) Reason for follow up: first compliance (setup 09/22/20) Equipment type: CPAP Equipment obtained from: [employer] (got initial supplies) Mask style: Nasal Mask brand: Respironics (Dreamwear) Backup mask available: No (will keep old mask when replaced) Last cushion change: 1 month Prior sleep studies: Yes Year and Where: 2015, 2019 and 2020 - [facility] Sleep HPI additional information: FABIO DAVIDSON was diagnosed to have mild, AHI 13.0, obstructive sleep apnea- hypopnea syndrome and returned today for CPAP therapy first compliance follow- up. CPAP Compliance Data - Data Reviewed with Patient Average duration of nightly device use: 4 h 9 min Compliance rate %: 83.3 Current pressure setting (cmH2O): 4-15 (median 6.7, avg 10.3 and max 11.0) Humidity settin Heated hose settin Average residual AHI: 10.3 Central apnea: 2.4 Obstructive apnea: 3.1 Hypopnea: 4.8 Average large leak: 4 min 19 sec Subjective Patient concerns: reports: air blowing in eyes (when laying on side mostly). denies: aerophagia, mask discomfort, mask leak noise, condensation in mask/hose, nasal congestion, dry mouth, nose, throat, epistaxis, other Observed to snore while using device: No Current pressure setting perceived as: comfortable On therapy, patient: reports: sleeping better (not all days), awakening more refreshed, being more awake and alert during the day, more rested overall. denies: drowsiness while driving Initial [place] Sleepiness Scale score: 5 (in 2016) Current [place] Sleepiness Scale score: 7 Allergies and Home Medications Home medication list reviewed: Yes (no changes) Review of Systems Review of systems same as previous: Yes (no changes) Physical Exam Heart Rate: 63 O2 Saturation: 97 Height: 5 ft 5 in Weight: 220 lb Body Mass Index: 36.6 BMI Classification: Obese Impression and Plan 1. Obstructive Sleep Apnea-Hypopnea Syndrome, mild, with good treatment c ompliance and poor apnea control with an elevated residual AHI of 10.3. On CPAP therapy, the patient has better sleep quality and is more rested overall. She has wondered if the pressure was too high because of some mask leaking and waking her up. This happens mostly when she is sleeping on her side. Mask leaks can be reduced by washing mask daily and changing mask cushions more frequently to improve mask seal and comfort. Additionally, mask leaks predominately from when patient sleeps on their side can be reduced by using a CPAP pillow. A CPAP pillow sample was shown. This and other styes can be purchased online. She voiced understanding. I will adjust her pressure to 11-15 cmH2O to try to reduce her residual AHI. Patient advised to contact me if pressure change is uncomfortable so that it can be adjusted. Goals for apnea control discussed. Patient's apnea severity and rationale for treatment to reduce apnea, improve sleep quality and reduce cardiovascular and cerebrovascular events was reviewed. I also reviewed the benefit of consistent device use of CPAP for hypertension, cardiac disease, and depression/anxiety. * Change auto CPAP pressure to 11-15 cmH2O * Notify me if snoring with mask or feeling that the pressure is too much or too little * Attempt to lose weight * Call this office if any problems using CPAP * Return for follow up in 1-2 months, or sooner if concerns arise Counseling Topics: Spare mask, Weight loss health impact Visit Type: In Office Time Spent with Patient (minutes): 20 Provider Statement: I spent 100% of the Face to Face Visit with the patient with greater than 50% spent counseling the patient and coordination of care.
== END 2020-11-04 14:33 | disposition home or self-care (01) ==
LOC: SC 14:32
PROVIDERS: ATTEND Nurse Practitioner Family
DX: G47.33 Obstructive sleep apnea (adult) (pediatric) (principal); E66.9 Obesity, unspecified; Z68.36 Body mass index [BMI] 36.0-36.9, adult
CPT/HCPCS: 99213; G0463; 99212

== ENCOUNTER 2020-12-25 14:02 | Outpatient (CLI) | payer MEDICARE, OTHER ==
--- NOTE | 2020-12-25 14:30 | SLEEP CARE CONSULTATION ---
Information from patient questionnaire entered by Chetna Ayala. I have reviewed and concur with the information entered by Chetna Ayala. This document represents the service I personally performed and the decisions made by , Elin Crouch ARNP. History of Present Illness Service Date and Time: 12/25/2020 1402 Previous diagnosis: Mild, Obstructive Sleep Apnea-Hypopnea Syndrome AHI: 13.0 (in 2020)(14.5 in 2016) Reason for follow up: other (6 week with pressure change) Equipment type: CPAP Equipment obtained from: [employer] (getting supplies as needed) Mask style: Nasal Backup mask available: Yes (old mask) Last cushion change: 2 months Prior sleep studies: Yes Year and Where: 2020 and 2015 ([facility]) - [facility] Sleep Type of Sleep Study: Polysomnography HPI additional information: FABIO DAVIDSON was diagnosed to have mild, AHI 13.0, obstructive sleep apnea- hypopnea syndrome and returned today for CPAP therapy 6 week with pressure change follow-up. Subjective Patient concerns: reports: mask discomfort, air blowing in eyes (just a little bit), nasal congestion (probably just allergies). denies: aerophagia, mask leak noise, condensation in mask/hose, dry mouth, nose, throat, epistaxis, other Observed to snore while using device: No Current pressure setting perceived as: too high On therapy, patient: reports: sleeping better, more rested overall. denies: drowsiness while driving Initial [place] Sleepiness Scale score: 5 (in 2016) Current [place] Sleepiness Scale score: 2 Allergies and Home Medications Home medication list reviewed: Yes (no new meds) Review of Systems Review of systems same as previous: Yes (no changes) Physical Exam Heart Rate: 65 O2 Saturation: 97 Height: 5 ft 5 in Weight: 219 lb Body Mass Index: 36.4 BMI Classification: Obese Impression and Plan 1. Obstructive Sleep Apnea-Hypopnea Syndrome, mild, with unknown treatment compliance and unknown apnea control. Patient felt that the pressure is too high since changing the pressure and stopped using the CPAP. She just stopped using the CPAP because of this since last week of October. I will adjust the pressure from 11-15 cmH2O to 8-13 cmH2O to see if this is more comfortable. Patient advised to contact me if pressure change is uncomfortable so that it can be adjusted. She states when she was using it the mask would leak when she changed positions or went on her side. She is usually able to adjust it to be comfortable without leaking. She has to get up to let her dogs out at night and will just not remember or feel like putting the mask back on. To prevent falling asleep without CPAP after using the bathroom or taking her dogs out, patient can either unhook the hose and keep mask on or put mask on pillow. Patient voiced understanding and agreement with plan of care. Patient's apnea severity and rationale for treatment to reduce apnea, improve sleep quality and reduce cardiovascular and cerebrovascular events was reviewed. I also reviewed the benefit of consistent device use of CPAP for hypertension, cardiac disease, depression and anxiety. * Change auto CPAP pressure to 8-13 cmH2O * Notify me if snoring with mask or feeling that the pressure is too much or too little * Attempt to lose weight * Call this office if any problems using CPAP * Return for follow up in 1-2 months, or sooner if concerns arise Counseling Topics: Spare mask, Weight loss health impact Visit Type: In Office Time Spent with Patient (minutes): 23 Provider Statement: I spent 100% of the Face to Face Visit with the patient with greater than 50% spent counseling the patient and coordination of care.
== END 2020-12-25 14:03 | disposition home or self-care (01) ==
LOC: SC 14:02
PROVIDERS: ATTEND Nurse Practitioner Family
DX: G47.33 Obstructive sleep apnea (adult) (pediatric) (principal); E66.9 Obesity, unspecified; Z68.36 Body mass index [BMI] 36.0-36.9, adult
CPT/HCPCS: 99213; G0463; 99212

== ENCOUNTER 2021-12-15 11:17 | Outpatient (CLI) | payer MEDICARE, OTHER ==
[2021-12-15 17:59] LABS: BASOPHILS # (AUTO) 0.1 10^3/uL (0.0-0.1); BASOPHILS % (AUTO) 1.1 %; EOSINOPHILS # (AUTO) 0.2 10^3/uL (0.0-0.7); EOSINOPHILS % (AUTO) 3.4 %; HCT - HEMATOCRIT 42.7 % (37.0-47.0); HGB - HEMOGLOBIN 14.2 g/dL (12.0-16.0); LYMPHOCYTES # (AUTO) 1.7 10^3/uL (1.5-3.5); LYMPHOCYTES % (AUTO) 25.6 %; MEAN CORPUSCULAR HEMOGLOBIN 32.3 pg (27.0-31.0); MEAN CORPUSCULAR HGB CONC 33.3 g/dL (32.0-36.0); MEAN CORPUSCULAR VOLUME 97.3 fL (81.0-99.0); MEAN PLATELET VOLUME 9.5 fL (7.9-10.8); MONOCYTES # (AUTO) 0.7 10^3/uL (0.0-1.0); MONOCYTES % (AUTO) 11.3 %; NEUTROPHILS # (AUTO) 3.8 10^3/uL (1.5-6.6); NEUTROPHILS % (AUTO) 58.4 %; PLT - PLATELET COUNT 247 10^3/uL (130-450); RED BLOOD COUNT 4.39 10^6/uL (4.20-5.40); RED CELL DISTRIBUTION WIDTH 12.3 % (12.0-15.0); WHITE BLOOD COUNT 6.5 x10^3/uL (4.8-10.8)
[2021-12-15 18:31] LABS: ALBUMIN 3.6 g/dL (3.2-5.5); ALBUMIN/GLOBULIN RATIO 1.1 (1.0-2.2); ALKALINE PHOSPHATASE 58 IU/L (42-121); ALT ALANINE AMINOTRANSFERASE 18 IU/L (10-60); AST ASPARTATE AMINOTRANSFERASE 25 IU/L (10-42); BILIRUBIN,TOTAL 0.5 mg/dL (0.2-1.0); BUN - BLOOD UREA NITROGEN 26 mg/dL (6-20); CALCIUM 9.4 mg/dL (8.5-10.3); CARBON DIOXIDE - CO2 31 mmol/L (21-32); CHLORIDE 102 mmol/L (101-111); CHOLESTEROL 164 mg/dL; CREATININE 0.7 mg/dL (0.4-1.0); GFR - MDRD 82 (>89); GLUCOSE 104 mg/dL (70-100); HDL CHOLESTEROL 54 mg/dL; LDL CHOLESTEROL,CALCULATED 76 mg/dL; LDL/HDL RATIO 1.4 (<4.4); MAGNESIUM 1.6 mg/dL (1.7-2.8); POTASSIUM 3.9 mmol/L (3.5-5.0); SODIUM 142 mmol/L (135-145); TOTAL PROTEIN 6.9 g/dL (6.7-8.2); TRIGLYCERIDES 169 mg/dL; VLDL CHOLESTEROL 34 mg/dL
[2021-12-15 21:42] LABS: ESTIMATED AVERAGE GLUCOSE 123 mg/dL (70-100); HEMOGLOBIN A1c% 5.9 % (4.27-6.07)
== END 2021-12-15 11:18 | disposition home or self-care (01) ==
LOC: LAB.N 11:17
PROVIDERS: ATTEND Family Medicine
DX: I10 Essential (primary) hypertension (principal); E83.42 Hypomagnesemia; R73.01 Impaired fasting glucose; I25.10 Atherosclerotic heart disease of native coronary artery without angina pectoris
CPT/HCPCS: 36415; 80053; 80061; 83036; 83721; 83735; 85025

== ENCOUNTER 2022-02-23 13:03 | Outpatient (CLI) | payer MEDICARE, OTHER ==
[2022-02-23 18:28] LABS: CALCIUM 9.2 mg/dL (8.5-10.3); CREATININE 0.7 mg/dL (0.4-1.0); MAGNESIUM 1.8 mg/dL (1.7-2.8); POTASSIUM 3.7 mmol/L (3.5-5.0)
== END 2022-02-23 13:04 | disposition home or self-care (01) ==
LOC: LAB.N 13:03
PROVIDERS: ATTEND Physician Assistant
DX: Z51.81 Encounter for therapeutic drug level monitoring (principal); E83.42 Hypomagnesemia
CPT/HCPCS: 36415; 80048; 83735

== ENCOUNTER 2023-01-07 15:38 | Outpatient (CLI) | payer MEDICARE, OTHER ==
[2023-01-07 17:21] LABS: BASOPHILS # (AUTO) 0.1 10^3/uL (0.0-0.1); EOSINOPHILS # (AUTO) 0.1 10^3/uL (0.0-0.7); EOSINOPHILS % (AUTO) 2.9 %; HCT - HEMATOCRIT 45.6 % (37.0-47.0); HGB - HEMOGLOBIN 14.8 g/dL (12.0-16.0); LYMPHOCYTES # (AUTO) 1.3 10^3/uL (1.5-3.5); LYMPHOCYTES % (AUTO) 26.5 %; MEAN CORPUSCULAR HEMOGLOBIN 31.1 pg (27.0-31.0); MEAN CORPUSCULAR HGB CONC 32.5 g/dL (32.0-36.0); MEAN CORPUSCULAR VOLUME 95.8 fL (81.0-99.0); MEAN PLATELET VOLUME 9.5 fL (7.9-10.8); MONOCYTES # (AUTO) 0.6 10^3/uL (0.0-1.0); MONOCYTES % (AUTO) 11.4 %; NEUTROPHILS # (AUTO) 2.8 10^3/uL (1.5-6.6); NEUTROPHILS % (AUTO) 57.8 %; PLT - PLATELET COUNT 301 10^3/uL (130-450); RED BLOOD COUNT 4.76 10^6/uL (4.20-5.40); RED CELL DISTRIBUTION WIDTH 11.9 % (12.0-15.0); WHITE BLOOD COUNT 4.9 x10^3/uL (4.8-10.8)
[2023-01-07 17:37] LABS: ESTIMATED AVERAGE GLUCOSE 128 mg/dL (70-100); HEMOGLOBIN A1c% 6.1 % (4.27-6.07)
[2023-01-07 17:38] LABS: ALBUMIN 3.8 g/dL (3.2-5.5); ALKALINE PHOSPHATASE 66 IU/L (42-121); ALT ALANINE AMINOTRANSFERASE 18 IU/L (10-60); AST ASPARTATE AMINOTRANSFERASE 23 IU/L (10-42); BILIRUBIN,TOTAL 0.7 mg/dL (0.2-1.0); BUN - BLOOD UREA NITROGEN 24 mg/dL (6-20); CALCIUM 9.5 mg/dL (8.5-10.3); CARBON DIOXIDE - CO2 33 mmol/L (21-32); CHLORIDE 99 mmol/L (101-111); CHOL/HDL RATIO 3.2 (<4.4); CHOLESTEROL 183 mg/dL; CREATININE 0.8 mg/dL (0.4-1.0); GFR - MDRD 70 (>89); GLUCOSE 116 mg/dL (70-100); HDL CHOLESTEROL 57 mg/dL; LDL CHOLESTEROL,CALCULATED 85 mg/dL; LDL/HDL RATIO 1.5 (<4.4); MAGNESIUM 1.9 mg/dL (1.7-2.8); POTASSIUM 3.8 mmol/L (3.5-5.0); SODIUM 141 mmol/L (135-145); TOTAL PROTEIN 7.5 g/dL (6.7-8.2); TRIGLYCERIDES 203 mg/dL; VALPROIC ACID (DEPAKOTE) 35.6 ug/mL; VLDL CHOLESTEROL 41 mg/dL
[2023-01-07 17:45] LABS: THYROID STIMULATING HORMONE 0.77 uIU/mL (0.34-5.60)
== END 2023-01-07 15:39 | disposition home or self-care (01) ==
LOC: LAB.N 15:38
PROVIDERS: ATTEND Physician Assistant
DX: I10 Essential (primary) hypertension (principal); E78.5 Hyperlipidemia, unspecified; Z51.81 Encounter for therapeutic drug level monitoring; R73.01 Impaired fasting glucose; E83.42 Hypomagnesemia
CPT/HCPCS: 36415; 80053; 80061; 80164; 83036; 83721; 83735; 84443; 85025

== ENCOUNTER 2023-03-08 11:20 | Outpatient (CLI) | payer MEDICARE, OTHER ==
[2023-03-08 12:25] VITALS: BP 112/70; O2SAT 96
--- NOTE | 2023-03-08 12:25 | SLEEP CARE CONSULTATION ---
Information from patient questionnaire entered by Keenan Pepper. I have reviewed and concur with the information entered by Keenan Pepper. This document represents the service I personally performed and the decisions made by me, Elin Crouch ARNP. History of Present Illness Service Date and Time: 03/08/2023 1120 Previous diagnosis: Mild, Obstructive Sleep Apnea-Hypopnea Syndrome AHI: 13.0 Reason for follow up: annual (LAST SEEN 02/2022) Equipment type: CPAP ([employer] DREAMSTATION 2) Equipment obtained from: [employer] (getting supplies) Mask style: Nasal Backup mask available: Yes (old mask) Last cushion change: a while Prior sleep studies: Yes Year and Where: 2020 and 2015 ([facility] Type of Sleep Study: Polysomnography HPI additional information: FABIO DAVIDSON was diagnosed to have mild, AHI 13, obstructive sleep apnea- hypopnea syndrome and returned today for CPAP therapy annual follow-up. Sleep Study - Results Type of Sleep Study: Polysomnography Prior sleep studies: Yes Year and Where: 2020 and 2015 ([facility] Compliance Data - Data Reviewed with Patient Average duration of nightly device use: 7 HRS 55 MINS 51SECS Compliance rate %: 7.2 (08/27/22-02/22/23; 14/180 days used) Current pressure setting (cmH2O): 11-15 (90% avg 15.0) Average residual AHI: 37.9 Central apnea: 7.5 Obstructive apnea: 22.9 Hypopnea: 7.5 Average large leak: 5 mins 17 secs Subjective Patient concerns: reports: air blowing in eyes, mask leak noise, nasal congestion, dry mouth, nose, throat. denies: aerophagia, mask discomfort, condensation in mask/hose, epistaxis Observed to snore while using device: No Current pressure setting perceived as: comfortable On therapy, patient: denies: sleeping better, awakening more refreshed, more rested overall, drowsiness while driving Initial [place] Sleepiness Scale score: 5 (in 2016) Current [place] Sleepiness Scale score: 1 (03/08/23) Allergies and Home Medications Known drug allergies: Yes (as listed) Drug allergies reviewed: Yes Home medication list reviewed: Yes (Depokote for depression) Allergy and home medication list: Allergies desvenlafaxine [Desvenlafaxine] Allergy (Mild, Verified 03/07/23 09:48) Headache phenobarbital Allergy (Mild, Verified 03/07/23 09:48) depression desvenlafaxine succinate * [From Pristiq] Allergy (Unknown, Verified 03/07/23 09:48) Unknown bupropion HCl * [From Wellbutrin] Allergy (Verified 03/07/23 09:48) Headache ibuprofen Allergy (Verified 03/07/23 09:48) Unknown lidocaine Allergy (Verified 03/07/23 09:48) Unknown propoxyphene HCl * [From Darvon] Allergy (Verified 03/07/23 09:48) Headache aripiprazole [From Abilify] Adverse Reaction (Verified 03/07/23 09:48) tremors citalopram Adverse Reaction (Verified 03/07/23 09:48) Headache indomethacin Adverse Reaction (Verified 03/07/23 09:48) unknown tape Allergy (Uncoded 03/07/23 09:48) Unknown Review of Systems Review of systems same as previous: Yes Physical Exam Vital signs obtained and entered by: KEENAN Ricardo MA Blood Pressure: 112/70 (LEFT ARM) Cuff size: regular Heart Rate: 72 O2 Saturation: 96 Height: 5 ft 5 in Weight: 249 lb 6.4 oz Weight change since last visit: 8 lb gain Body Mass Index: 41.5 BMI Classification: Morbidly Obese Impression and Plan 1. Obstructive Sleep Apnea-Hypopnea Syndrome, mild, with good treatment compliance and poor apnea control. On CPAP therapy, the patient has better sleep quality and is more rested overall. The patients pressure will be changed to autoCPAP 11-20 cmH20 for elevation of residual AHI. I also would like to have her complete a titration study to try to find optimal pressure setting for her. Patient advised to contact me if pressure change is uncomfortable so that it can be adjusted. Goals for apnea control discussed. Patient's apnea severity and rationale for treatment to reduce apnea, improve sleep quality and reduce cardiovascular and cerebrovascular events was reviewed. I also reviewed the benefit of consistent device use of CPAP for hypertension, cardiac disease, depression and anxiety. Patient struggling with using her nasal cushion mask. She is getting a lot of leaks into her eyes. She is requesting to try a fullface mask. I will be unable to get her into a full face mask fitting with her DME but she can have this done on the night of the titration study. She states she is going on a vacation and would like to be able to use the CPAP in the meantime. I fit her to a fullface, [employer]Med AirFit F30 medium cushion mask. She states it was comfortable and will try this until the titration study. 2. Obesity, unspecified. Currently patients BMI is 41.5. Obesity increases the risk of apnea, CPAP pressure requirements and overall health risks especially cardiovascular and diabetes. Thus patient is advised to lose weight. * Change auto CPAP pressure to 11-20 cmH2O * Titration study ordered to find optimal pressure settings * Fitting for full face mask, ResMed Airfit F30 with medium cushion * Notify me if snoring with mask or feeling that the pressure is too much or too little * Attempt to lose weight * Call this office if any problems using CPAP * Return for follow up after titration study, or sooner if concerns arise Counseling Topics: Spare mask, Weight loss health impact Follow up with Sleep Care in: other (after titration study) Visit Type: In Office Time Spent with Patient (minutes): 28 Provider Statement: I spent 100% of the Face to Face Visit with the patient with greater than 50% spent counseling the patient and coordination of care.
== END 2023-03-08 11:21 | disposition home or self-care (01) ==
LOC: SC 11:20
PROVIDERS: ATTEND Nurse Practitioner Family
DX: G47.33 Obstructive sleep apnea (adult) (pediatric) (principal); E66.01 Morbid (severe) obesity due to excess calories; Z68.41 Body mass index [BMI] 40.0-44.9, adult
CPT/HCPCS: 99213; G0463; 99212

== ENCOUNTER 2023-05-26 11:35 | Outpatient (CLI) | payer MEDICARE, OTHER ==
--- NOTE | 2023-05-26 12:09 | Sleep Patient Instructions ---
Sleep Center Visit Summary - Patient Visit Information Reason for Visit: Titration study followup - Patient Instructions Instructions Attached: BiPap Using, BiPap About Additional Instructions: You are being started on BiPAP ST therapy with pressure setting at 19/12 cmH2O. You will need to call the sleep care office to set up your compliance follow up once you have your BiPAP ST machine and we will schedule a visit to check compliance and response to therapy at that time. You may call the office with any concerns about pressure feeling too low or too much for adjustment, if needed. You should contact DME supplier for any questions or concerns about mask or equipment. Please call office to schedule a follow up appointment in the sleep care office one month after obtaining new device. - Clinic Information Contact: [facility] [address] [place] [address] [email or web address] T: [phone]
--- NOTE | 2023-05-26 12:24 | SLEEP CARE CONSULTATION ---
Information from patient questionnaire entered by Quynh Pepper. I have reviewed and concur with the information entered by Quynh Pepper. This document represents the service I personally performed and the decisions made by , Elin Crouch ARNP. History of Present Illness Service Date and Time: 05/26/2023 1135 Initial [place] Sleepiness Scale score: 5 (in 2016) Current [place] Sleepiness Scale score: 8 Additional HPI information: FABIO DAVIDSON returns for follow up of the sleep study with a manual BIPAP titration study performed on 04/11/2023. The patient was informed of the following polysomnography findings: CPAP was initiated at 6 cmH2O and titrated up to BiPAP at S/T at 19/12 cmH2O. BiPAP S/T at 19/12 cmH2O with a backup rate of 11 appeared to be optimal (AHI of 2.0 per hour on the pressure). There was supine REM sleep on the pressure. Oxygen saturation was minimally low. CPAP allowed frequent residual respiratory events, mostly central apneas. The patient appeared to have tolerated positive airway pressure therapy very well. Sleep Study - Results Type of Sleep Study: Polysomnography (TITRATION F/U COMPLETED 04/11/23) Prior sleep studies: Yes Year and Where: 2020 and 2015 (T) - [facility] Polysomnography/Home Sleep Study results: IMPRESSION: The quality of the study is good. CPAP was initiated at 6 cmH2O and titrated up to BiPAP at S/T at 19/12 cmH2O. BiPAP S/T at 19/12 cmH2O with a backup rate of 11 appeared to be optimal (AHI of 2.0 per hour on the pressure). There was supine REM sleep on the pressure. Oxygen saturation was minimally low. CPAP allowed frequent residual respiratory events, mostly central apneas. The patient appeared to have tolerated positive airway pressure therapy very well. The patients sleep efficiency was normal. The sleep architecture was abnormal for sleep fragmentation and reduced amount of time spent in REM and slow wave sleep (N3). There was no significant periodic leg movement of sleep. Cardiac rhythm was normal sinus rhythm without significant arrhythmia. No abnormal behavior (parasomnia) observed during the night. CONCLUSIONS and RECOMMENDATIONS: 1. Complex sleep apnea-hypopnea (ICD-10 G47.37), mild (AHI was 13.0 in 2020), adequately controlled with BiPAP S/T set at 19/12 cmH2O with a backup rate of 11 breaths per minute. Complex sleep apnea is when positive airway pressure therapy results in treatment-emerged central apneas. Mask used was a ResMed F30 full face mask With BMI of 41.4 Kg/M2, weight loss is also recommended. Allergies and Home Medications Known drug allergies: Yes (as listed) Drug allergies reviewed: Yes Home medication list reviewed: Yes (Topiramate 50 mg x 2 a day, for tremors) Allergy and home medication list: Allergies desvenlafaxine [Desvenlafaxine] Allergy (Mild, Verified 05/25/23 11:29) Headache phenobarbital Allergy (Mild, Verified 05/25/23 11:29) depression desvenlafaxine succinate * [From Pristiq] Allergy (Unknown, Verified 05/25/23 11:29) Unknown bupropion HCl * [From Wellbutrin] Allergy (Verified 05/25/23 11:29) Headache ibuprofen Allergy (Verified 05/25/23 11:29) Unknown lidocaine Allergy (Verified 05/25/23 11:29) Unknown propoxyphene HCl * [From Darvon] Allergy (Verified 05/25/23 11:29) Headache aripiprazole [From Abilify] Adverse Reaction (Verified 05/25/23 11:29) tremors citalopram Adverse Reaction (Verified 05/25/23 11:29) Headache indomethacin Adverse Reaction (Verified 05/25/23 11:29) unknown tape Allergy (Uncoded 05/25/23 11:29) Unknown Review of Systems Review of systems same as previous: Yes (no changes) Physical Exam Vital signs obtained and entered by: ELIN QUINTERO-Davion Blood Pressure: 91/62 Cuff size: wrist (left) Heart Rate: 76 O2 Saturation: 96 Height: 5 ft 5 in Weight: 233 lb Body Mass Index: 38.7 BMI Classification: Obese Impression and Plan 1. Complex Sleep Apnea-Hypopnea Syndrome, mild. Patient completed titration study which showed optimal control of her complex sleep apnea with BiPAP ST at 19/12 with 11 breaths/min backup rate. We will switch her to a BiPAP ST at these settings and then follow-up with her with a new device to check compliance and response. I explained the change and that I will order a new device. I reviewed compliance with new device. She voiced understanding. Patient's apnea severity and rationale for treatment to reduce apnea, improve sleep quality and reduce cardiovascular and cerebrovascular events was reviewed. I also reviewed the benefit of consistent device use of CPAP for hypertension, cardiac disease, depression/anxiety, . 2. Obesity, unspecified. Currently patients BMI is 38.7. Obesity increases the risk of apnea, BIPAP pressure requirements and overall health risks especially cardiovascular and diabetes. Thus patient is advised to lose weight. * Change to BiPAP ST with pressure at 19/12 cmH2O with 11 breaths per minute backup rate * Notify me if snoring with mask or feeling that the pressure is too much or too little * Attempt to lose weight * Call this office if any problems using BiPAP * Return for follow up one month after obtaining new BIPAP, or sooner if concerns arise Counseling Topics: Weight loss health impact Prescriptions: BiPAP (ST with backup rate) Visit Type: In Office Time Spent with Patient (minutes): 21 Provider Statement: I spent 100% of the Face to Face Visit with the patient with greater than 50% spent counseling the patient and coordination of care.
[2023-05-26 12:28] VITALS: BP 91/62; O2SAT 96
== END 2023-05-26 11:36 | disposition home or self-care (01) ==
LOC: SC 11:35
PROVIDERS: ATTEND Nurse Practitioner Family
DX: G47.39 Other sleep apnea (principal); E66.9 Obesity, unspecified; Z68.38 Body mass index [BMI] 38.0-38.9, adult
CPT/HCPCS: 99213; G0463; 99212

== ENCOUNTER 2023-06-21 17:14 | Outpatient (CLI) | payer MEDICARE, OTHER ==
[2023-06-21 21:26] LABS: ALBUMIN 4.2 g/dL (3.2-5.5); ALBUMIN/GLOBULIN RATIO 1.4 (1.0-2.2); ALKALINE PHOSPHATASE 53 IU/L (42-121); ALT ALANINE AMINOTRANSFERASE 17 IU/L (10-60); AST ASPARTATE AMINOTRANSFERASE 27 IU/L (10-42); BILIRUBIN,TOTAL 0.5 mg/dL (0.2-1.0); BUN - BLOOD UREA NITROGEN 37 mg/dL (6-20); CALCIUM 10.1 mg/dL (8.5-10.3); CARBON DIOXIDE - CO2 28 mmol/L (21-32); CHLORIDE 91 mmol/L (101-111); CREATININE 1.2 mg/dL (0.6-1.3); GFR - MDRD 44 (>89); GLUCOSE 147 mg/dL (74-104); POTASSIUM 3.1 mmol/L (3.5-4.5); SODIUM 134 mmol/L (135-145); TOTAL PROTEIN 7.1 g/dL (6.4-8.9); VALPROIC ACID (DEPAKOTE) 73.4 ug/mL
== END 2023-06-21 17:15 | disposition home or self-care (01) ==
LOC: LAB.N 17:14
PROVIDERS: ATTEND Psychiatry & Neurology Psychiatry
DX: F31.81 Bipolar II disorder (principal); Z79.899 Other long term (current) drug therapy; R25.1 Tremor, unspecified; Z51.81 Encounter for therapeutic drug level monitoring
CPT/HCPCS: 36415; 80053; 80164

== ENCOUNTER 2023-07-04 12:24 | Outpatient (CLI) | payer MEDICARE, OTHER | END 2023-07-04 12:25 | disposition critical access hospital (66) | LOC: EMS 12:24 | DX: S09.90XA Unspecified injury of head, initial encounter (principal); W18.39XA Other fall on same level, initial encounter; Y92.003 Bedroom of unspecified non-institutional (private) residence as the place of occurrence of the external cause; R42 Dizziness and giddiness; R11.2 Nausea with vomiting, unspecified; R53.1 Weakness; R10.11 Right upper quadrant pain; R10.12 Left upper quadrant pain; R19.7 Diarrhea, unspecified | CPT/HCPCS: A0425; A0427 ==

== ENCOUNTER 2023-07-04 12:48 | Emergency (ER) | payer MEDICARE, OTHER ==
[2023-07-04] MEDS ORDERED: HYDROmorphone 1 MG/ML CARPUJECT IVP STA (12:59)
[2023-07-04] MEDS ORDERED: ONDANSETRON 4 MG/2 ML VIAL IVP STA (12:59)
[2023-07-04] MEDS ORDERED: SODIUM CHLORIDE 0.9% 1,000 ML IV STA ×3 (12:59→15:03)
--- NOTE | 2023-07-04 13:02 | ED Physician Documentation ---
PD HPI HEAD INJURY - Stated complaint Stated Complaint: GLF - Chief complaint Chief Complaint: Trauma Hd/Nk - History obtained from History obtained from: Patient, EMS - Additional information Additional information: 73-year-old woman with history of IN, hiatal hernia repair, tremor, CABG and stenting presents by ambulance. She is been feeling ill for 2 weeks with nausea, occasional vomiting and diarrhea with central abdominal pain. No blood from either end. Today, presumably from dehydration she stood up and then fell backwards and hit the back of her head and her rear end. She could not get herself up. She has a moderate headache and moderate abdominal pain now. PD PAST MEDICAL HISTORY - Past Medical History Past Medical History: Yes Cardiovascular: Hypertension, High cholesterol, Coronary artery disease, Angina, IN Respiratory: None Neuro: None Endocrine/Autoimmune: None GI: None, GERD, Hiatal hernia : None HEENT: None Psych: Depression Musculoskeletal: Osteoarthritis, Osteoporosis Derm: None - Past Surgical History Past Surgical History: Yes General: Hiatal hernia repair Ortho: Knee replacement Cardiovascular: Coronary stent HEENT: Cataracts, Tonsil/Adenoidectomy - Present Medications Home Medications: Ambulatory Orders Medication Instructions Recorded Confirmed Ascorbic Acid [Acerola C] 500 mg PO DAILY 12/18/12 03/08/23 Aspirin 81 mg PO DAILY 12/18/12 03/08/23 Biotin 1 mg PO DAILY 12/18/12 03/08/23 Calcium Carbonate [Tums] 500 mg PO DAILY 12/18/12 03/08/23 Cholecalciferol (Vitamin D3) 3,000 unit PO DAILY 12/18/12 03/08/23 [Vitamin D] Clopidogrel [Plavix] 75 mg PO DAILY 12/18/12 03/08/23 Duloxetine HCl [Cymbalta] 60 mg PO DAILY 12/18/12 03/08/23 Multivitamin [Multivitamins] 1 each PO DAILY 12/18/12 03/08/23 Nitroglycerin [Nitrostat] 0.4 mg SL Q5MIN PRN 12/18/12 03/08/23 Carbon-3/Dha/Epa/Fish Oil [Fish Oil 1 each PO DAILY 12/18/12 03/08/23 Carbon-3 Softgel] Rosuvastatin Calcium [Crestor] 40 mg PO DAILY 12/18/12 03/08/23 Valsartan [Diovan] 80 mg PO BID 12/18/12 03/08/23 Acetaminophen 1,000 mg PO Q8HR 09/11/15 03/08/23 Magnesium 250 mg PO DAILY 07/15/16 03/08/23 Metoprolol Succinate 75 mg PO DAILY 11/10/16 03/08/23 Divalproex [Kelly Ovalles] See Rx Instructions .ROUTE .COMPLEX 03/08/23 03/08/23 Cefdinir 300 mg PO BID #20 cap 07/04/23 HYDROcod/ACETAM 5/325 [[place] 5/325] 1 - 2 tab PO Q6H PRN #10 tablet 07/04/23 Ondansetron Odt [Zofran] 4 mg TL Q6H PRN #10 tablet 07/04/23 - Allergies Allergies/Adverse Reactions: Allergies Allergy/AdvReac Type Severity Reaction Status Date / Time desvenlafaxine Allergy Mild Headache Verified 07/04/23 12:55 [Desvenlafaxine] phenobarbital Allergy Mild depression Verified 07/04/23 12:55 desvenlafaxine succinate * Allergy Unknown Unknown Verified 07/04/23 12:55 [From Pristiq] bupropion HCl * Allergy Headache Verified 07/04/23 12:55 [From Wellbutrin] ibuprofen Allergy Unknown Verified 07/04/23 12:55 lidocaine Allergy Unknown Verified 07/04/23 12:55 propoxyphene HCl * Allergy Headache Verified 07/04/23 12:55 [From Darvon] aripiprazole [From Abilify] AdvReac tremors Verified 07/04/23 12:55 citalopram AdvReac Headache Verified 07/04/23 12:55 indomethacin AdvReac unknown Verified 07/04/23 12:55 tape Allergy Unknown Uncoded 07/04/23 12:55 - Social History Does the pt smoke?: No Smoking Status: Never smoker Does the pt drink ETOH?: Yes Does the pt have substance abuse?: No - Immunizations Immunizations are current?: Yes - POLST Patient has POLST: Yes POLST Status: Full Code PD ED PE NORMAL - Vitals Vital signs reviewed: Yes - General General: Alert and oriented X 3, No acute distress, Other (She has a coarse tremor, chronic per patient) - HEENT HEENT: PERRL, EOMI - Neck Neck: Supple, no meningeal sign, No bony TTP - Cardiac Cardiac: RRR, No murmur - Respiratory Respiratory: No respiratory distress, Clear bilaterally - Abdomen Abdomen: Non tender, Other (Hyperactive bowel sounds) - Derm Derm: Normal color, Warm and dry - Neuro Neuro: Alert and oriented X 3 Eye Opening: Spontaneous Motor: Obeys Commands Verbal: Oriented GCS Score: 15 - Psych Psych: Normal mood, Normal affect Results - Vitals Vitals: Vital Signs - 24 hr 07/04/23 07/04/23 07/04/23 12:55 13:45 15:01 Temperature 36.8 C Heart Rate 94 95 100 Respiratory 18 14 24 Rate Blood Pressure 142/100 H 135/76 H 127/96 H O2 Saturation 94 98 96 If not protocol 3 2 : Oxygen Flow, liters/minute 07/04/23 16:57 Temperature 36.6 C Heart Rate 78 Respiratory 15 Rate Blood Pressure 123/76 O2 Saturation 98 If not protocol : Oxygen Flow, liters/minute Oxygen O2 Source Nasal cannula Oxygen Flow Rate 2 - EKG (time done) 1312 EKG releavant findings:: EKG personally interpreted by author of this note. Relevant findings are: Rate: Rate (enter#) (90) Rhythm: NSR [place]: LAD Intervals: Normal [place] QRS: Normal Ischemia: Non specific changes Computer interpretation: Agree with computer - Labs Labs: Laboratory Tests 07/04/23 07/04/23 07/04/23 12:56 12:56 15:55 WBC 11.9 H RBC 5.15 Hgb 16.5 H Hct 47.9 H MCV 93.0 MCH 32.0 H MCHC 34.4 RDW 12.3 Plt Count 232 MPV 10.0 Neut # (Auto) 8.9 H Lymph # (Auto) 1.7 [place] # (Auto) 1.1 H Eos # (Auto) 0.0 Baso # (Auto) 0.1 Absolute Nucleated RBC 0.00 Nucleated RBC % 0.0 Sodium 135 Potassium 3.1 L Chloride 84 L Carbon Dioxide 38 H Anion Gap 13.0 BUN 44 H Creatinine 1.1 Estimated GFR (MDRD) 49 L Glucose 128 H Calcium 11.0 H Magnesium 2.0 Total Bilirubin 0.5 AST 42 ALT 22 Alkaline Phosphatase 56 Total Protein 7.2 Albumin 3.9 Globulin 3.3 Albumin/Globulin Ratio 1.2 Lipase 21 Urine Color YELLOW Urine Clarity SL. CLOUDY Urine pH 6.0 Ur Specific [place] <=1.005 Urine Protein TRACE Urine Glucose (UA) NEGATIVE Urine Ketones 15 H Urine Occult Blood SMALL H Urine Nitrite POSITIVE H Urine Bilirubin NEGATIVE Urine Urobilinogen 0.2 (NORMAL) Ur Leukocyte Esterase NEGATIVE Urine RBC 0-5 Urine WBC 11-25 H Ur Squamous Epith Cells FEW Squamous Urine Bacteria Few Urine Mucus Few Strands Ur Microscopic Review INDICATED Urine Culture Comments INDICATED - Rads (name of study) CT head unremarkable Relevant Findings:: Final report received, EMP independent interpretation of test CT of the abdomen pelvis with IV contrast showing increased conspicuity of the bladder mucosa Relevant Findings:: Final report received, EMP independent interpretation of test PD Medical Decision Making - ED course Complexity details: reviewed results (CBC showing white count at 11.9 elevated and signs of hemoconcentration. Corresponding CMP showing contraction alkalosis, hypokalemia, prerenal azotemia, and mild hypercalcemia.) ED course: She has been sick for couple of weeks with a GI illness. Then hit her head today, after a presyncopal episode. She appears well and has benign abdominal exam. She was borderline tachycardic though with evidence of hemoconcentration on labs and also evidence of UTI. The CT showed thickening of the bladder mucosa so matching the urinary findings. She is treated with antibiotics, Rocephin here. After administration of IV fluids she was feeling better. She was nontender on reevaluation prior to discharge. Given close return precautions. Departure - Departure Disposition: 01 Home, Self Care Clinical Impression: UTI (urinary tract infection), Abdominal pain, Dehydration, Pre-syncope, Nausea, Diarrhea Condition: Good Record reviewed to determine appropriate education?: Yes Instructions: ED Diarrhea Viral, ED UTI Cystitis Female Prescriptions: Cefdinir 300 mg PO BID #20 cap HYDROcod/ACETAM 5/325 [[place] 5/325] 1 - 2 tab PO Q6H PRN #10 tablet PRN Reason: Pain Ondansetron Odt [Zofran] 4 mg TL Q6H PRN #10 tablet PRN Reason: Nausea / Vomiting Comments: You were seen today for gastrointestinal illness marked with nausea and diarrhea and it made you dehydrated states that she fell today and hit your head. Thankfully there is no evidence of severe head injury. CAT scan of your belly was normal with exception of thickening of the wall of the urinary bladder which corresponds to evidence of a urinary tract infection on your urinalysis. Labs were notable for mild signs of infection and dehydration. He received 2 L of IV fluids here as well as a dose of antibiotics and some potassium and pain medication and nausea medication or feeling better. I sent a prescription for the meds to [facility] in [place]. You do not need any more antibiotics until tomorrow as the shot we gave you here should last about 24 hours. We will culture your urine, the results should be done in 48-72 hours. If an antibiotic change is necessary we will call you. Return if worse in the meantime, especially if you develop increasing flank pain, fevers, or cannot keep down the medication. I am prescribing a short course of narcotic pain medication for you. These are potentially dangerous and addictive medications that should be used carefully. These medications may constipate you. Take an [id number] stool softener (docusate) twice daily with plenty of water while taking these medications. If you go 24 hours without a bowel movement, take [id number] miralax, per package instructions. Do not drink or drive while taking these medications. If you received narcotic or sedating medications while in the emergency department, do not drive for 24 hours. Store this medication in a safe, secure place and out of reach of children. It is a violation of federal law to give or sell this medication to another person or to use in a manner other than prescribed. The ED will not refill narcotic prescriptions, including prescriptions lost or stolen. To dispose of unwanted medications: 1. [facility] provides a drop box for medication in pill form only (no liquids) 8:00 am to 4:30 p.m. Tuesday-Tuesday in the lobby of the [facility], [address] [place] [address]. Empty pills into ziplock bag before disposal. Call [phone] for information. 2.[employer] is a free service available to all [facility] residents. Go to [email or web address] Note that many narcotic pain relievers also contain Tylenol/acetaminophen. Please ensure that your total dose of acetaminophen from all sources does not exceed 3 g (3000 mg) per day. Forms: PCP List Discharge Date/Time: 07/04/23 16:56
[2023-07-04 13:04] LABS: BASOPHILS # (AUTO) 0.1 10^3/uL (0.0-0.1); BASOPHILS % (AUTO) 0.5 %; EOSINOPHILS % (AUTO) 0.3 %; HCT - HEMATOCRIT 47.9 % (37.0-47.0); HGB - HEMOGLOBIN 16.5 g/dL (12.0-16.0); LYMPHOCYTES # (AUTO) 1.7 10^3/uL (1.5-3.5); MEAN CORPUSCULAR HGB CONC 34.4 g/dL (32.0-36.0); MONOCYTES # (AUTO) 1.1 10^3/uL (0.0-1.0); MONOCYTES % (AUTO) 9.6 %; NEUTROPHILS # (AUTO) 8.9 10^3/uL (1.5-6.6); NEUTROPHILS % (AUTO) 74.9 %; PLT - PLATELET COUNT 232 10^3/uL (130-450); RED BLOOD COUNT 5.15 10^6/uL (4.20-5.40); RED CELL DISTRIBUTION WIDTH 12.3 % (12.0-15.0); WHITE BLOOD COUNT 11.9 x10^3/uL (4.8-10.8)
[2023-07-04 13:28] LABS: ALBUMIN 3.9 g/dL (3.2-5.5); ALBUMIN/GLOBULIN RATIO 1.2 (1.0-2.2); BILIRUBIN,TOTAL 0.5 mg/dL (0.2-1.0); CREATININE 1.1 mg/dL (0.6-1.3); POTASSIUM 3.1 mmol/L (3.5-4.5); TOTAL PROTEIN 7.2 g/dL (6.4-8.9)
[2023-07-04] MEDS ORDERED: POTASSIUM BICARB 25 MEQ TABLET PO STA (13:35)
[2023-07-04] MEDS ORDERED: iohexoL-300 100 ML VIAL IVP ONE (14:06)
--- NOTE | 2023-07-04 14:38 | CT Report ---
PROCEDURE: HEAD WO INDICATIONS: head inj TECHNIQUE: Noncontrast 4.5 mm thick angled axial sections acquired from the foramen magnum to the vertex. For r adiation dose reduction, the following was used: automated exposure control, adjustment of mA and/or kV according to patient size. COMPARISON: Head CT 11/10/2016. FINDINGS: Image quality: Excellent. CSF spaces: Basal cisterns are patent. No extra-axial fluid collections. Ventricles are normal in size and shape. Brain: No midline shift. No intracranial masses or hemorrhage. No area of hypodensity in a vascula r distribution to suggest acute infarction. There is periventricular hypodensity consistent with repair operator lopez microvascular ischemic disease. Dense calcification about the left V4 vertebral artery. Age-relat ed parenchymal loss. Skull and face: Calvarium and visualized facial bones are intact, without suspicious lesions. Sinuses: Visualized sinuses and mastoids are clear. IMPRESSION: No acute intracranial pathology. Reviewed by: Isauro Duran MD on 07/04/2023 2:36 PM PST Approved by: Isauro Duran MD on 07/04/2023 2:36 PM PST Station ID: [id number]
--- NOTE | 2023-07-04 14:45 | CT Report ---
PROCEDURE: ABDOMEN/PELVIS W INDICATIONS: Abdominal pain CONTRAST: 100mL Omni 300 TECHNIQUE: After the administration of intravenous contrast, 5 mm thick sections acquired from the diaphragms to the symphysis. 5 mm thick coronal and sagittal reformats were acquired. For radiation dose reducti on, the following was used: automated exposure control, adjustment of mA and/or kV according to nathalia ent size. COMPARISON: CT abdomen pelvis 10/24/2012. FINDINGS: Image quality: Excellent. Lung bases and heart: Bibasilar atelectasis. No pleural effusion. Small hiatal hernia. Liver: No solid mass. Gallbladder and biliary tree: No radiopaque stones or wall thickening. No biliary dilation. Spleen: No splenomegaly. Pancreas: Atrophic. Adrenals: No adrenal nodule. Kidneys and ureters: No hydronephrosis. No renal cystic lesion which requires follow up. No solid mas s. Bowel and peritoneum: No bowel distension. No pathologic free fluid. Diverticulosis without evidence of diverticulitis. Normal appendix. Lymph nodes: No central or retroperitoneal adenopathy. Vessels: No infrarenal aortic aneurysm. PELVIS Reproductive organs: Anteverted uterus. No free fluid. Bladder: Decompressed. Increased conspicuity of the bladder mucosa. Pelvic lymph nodes: No pelvic adenopathy by size criteria. Bones: No aggressive osseous abnormality. Right hip arthroplasty. L4-S1 pedicle screw fixation with i ntervertebral body spacers. Multilevel DDD. Other: No significant ventral or inguinal hernia. IMPRESSION: 1. Increased conspicuity of the bladder mucosa. This could be seen in the setting of cystitis. Recomm end correlation with urinalysis. 2. No bowel obstruction. No free fluid. Normal appendix. Reviewed by: Isauro Duran MD on 07/04/2023 2:44 PM PST Approved by: Isauro Duran MD on 07/04/2023 2:44 PM PST Station ID: [id number]
[2023-07-04 16:23] LABS: GLUCOSE, URINE (UA) NEGATIVE (NEGATIVE); KETONES,URINE (UA) 15 mg/dL (NEGATIVE); LEUKOCYTE ESTERASE, URINE NEGATIVE (NEGATIVE); NITRITE,URINE POSITIVE (NEGATIVE); OCCULT BLOOD,URINE SMALL (NEGATIVE); PROTEIN,URINE TRACE mg/dL (NEGATIVE); UROBILINOGEN,URINE 0.2 (NORMAL) E.U./dL (NORMAL)
[2023-07-04 16:28] LABS: BILIRUBIN,URINE NEGATIVE (NEGATIVE); CLARITY,URINE SL. CLOUDY (CLEAR); ICTOTEST,URINE NEGATIVE
[2023-07-04] MEDS ORDERED: cefTRIAXone 1 GM VIAL IVP STA (16:31)
[2023-07-04 16:33] LABS: BACTERIA,URINE Few /HPF (None Seen); MUCUS,URINE Few Strands; RBC,URINE 0-5 /HPF (0-5); SQUAMOUS EPITHELIAL CELL,UR FEW Squamous (<= Few)
[2023-07-04 17:08] VITALS: BP 123/76; O2SAT 98
== END 2023-07-04 16:56 | disposition home or self-care (01) ==
LOC: EDUNIT# → ED 12:48
DX: N39.0 Urinary tract infection, site not specified (principal); R55 Syncope and collapse; E86.0 Dehydration; I10 Essential (primary) hypertension; Z95.1 Presence of aortocoronary bypass graft
CPT/HCPCS: 36415; 70450; 74177; 80053; 81001; 83690; 83735; 85025; 87077; 87086; 87181; 93005; 96361; 96374; 96375; 99284; 99285; A9270; J1170; Q9967; 81003

== ENCOUNTER 2023-07-12 14:10 | Emergency (ER) | payer MEDICARE, OTHER ==
--- NOTE | 2023-07-12 14:37 | ED Physician Documentation ---
PD HPI NVD - Stated complaint Stated Complaint: /DIARRHEA - Chief complaint Chief Complaint: Abd Pain - History obtained from History obtained from: Patient, Family (Info from a friend as well as her .) - History of Present Illness Timing - onset: How many weeks ago (The patient with a history of depression chronically that has been significantly worse and noticeable effect in her daily functions including eating and activity worsening or particularly over several weeks.) Timing - details: Gradual onset, Other (She also had a recent UTI and diagnosed with prescription for antibiotic that started about 5 days ago. She took it for 2 days and developed significant diarrhea so stopped the antibiotics. The diarrhea has tapered and mostly gone now 2.) PD PAST MEDICAL HISTORY - Past Medical History Cardiovascular: Hypertension, High cholesterol, Coronary artery disease, Angina, [place] Respiratory: None Neuro: None Endocrine/Autoimmune: None GI: None, GERD, Hiatal hernia : None HEENT: None Psych: Depression Musculoskeletal: Osteoarthritis, Osteoporosis Derm: None - Past Surgical History Past Surgical History: Yes General: Hiatal hernia repair Ortho: Knee replacement Cardiovascular: Coronary stent HEENT: Cataracts, Tonsil/Adenoidectomy - Present Medications Home Medications: Ambulatory Orders Medication Instructions Recorded Confirmed Ascorbic Acid [Acerola C] 500 mg PO DAILY 12/18/12 03/08/23 Aspirin 81 mg PO DAILY 12/18/12 03/08/23 Biotin 1 mg PO DAILY 12/18/12 03/08/23 Calcium Carbonate [Tums] 500 mg PO DAILY 12/18/12 03/08/23 Cholecalciferol (Vitamin D3) 3,000 unit PO DAILY 12/18/12 03/08/23 [Vitamin D] Clopidogrel [Plavix] 75 mg PO DAILY 12/18/12 03/08/23 Duloxetine HCl [Cymbalta] 60 mg PO DAILY 12/18/12 03/08/23 Multivitamin [Multivitamins] 1 each PO DAILY 12/18/12 03/08/23 Nitroglycerin [Nitrostat] 0.4 mg SL Q5MIN PRN 12/18/12 03/08/23 Byron-3/Dha/Epa/Fish Oil [Fish Oil 1 each PO DAILY 12/18/12 03/08/23 Byron-3 Softgel] Rosuvastatin Calcium [Crestor] 40 mg PO DAILY 12/18/12 03/08/23 Valsartan [Diovan] 80 mg PO BID 12/18/12 03/08/23 Acetaminophen 1,000 mg PO Q8HR 09/11/15 03/08/23 Magnesium 250 mg PO DAILY 07/15/16 03/08/23 Metoprolol Succinate 75 mg PO DAILY 11/10/16 03/08/23 Divalproex [Kelly Ovalles] See Rx Instructions .ROUTE .COMPLEX 03/08/23 03/08/23 Cefdinir 300 mg PO BID #20 cap 07/04/23 HYDROcod/ACETAM 5/325 [[place] 5/325] 1 - 2 tab PO Q6H PRN #10 tablet 07/04/23 Ondansetron Odt [Zofran] 4 mg TL Q6H PRN #10 tablet 07/04/23 - Allergies Allergies/Adverse Reactions: Allergies Allergy/AdvReac Type Severity Reaction Status Date / Time desvenlafaxine Allergy Mild Headache Verified 07/04/23 12:55 [Desvenlafaxine] phenobarbital Allergy Mild depression Verified 07/04/23 12:55 desvenlafaxine succinate * Allergy Unknown Unknown Verified 07/04/23 12:55 [From Pristiq] bupropion HCl * Allergy Headache Verified 07/04/23 12:55 [From Wellbutrin] ibuprofen Allergy Unknown Verified 07/04/23 12:55 lidocaine Allergy Unknown Verified 07/04/23 12:55 propoxyphene HCl * Allergy Headache Verified 07/04/23 12:55 [From Darvon] aripiprazole [From Abilify] AdvReac tremors Verified 07/04/23 12:55 citalopram AdvReac Headache Verified 07/04/23 12:55 indomethacin AdvReac unknown Verified 07/04/23 12:55 tape Allergy Unknown Uncoded 07/04/23 12:55 - Social History Does the pt smoke?: No Smoking Status: Never smoker Does the pt drink ETOH?: Yes Does the pt have substance abuse?: No - Immunizations Immunizations are current?: Yes - POLST Patient has POLST: Yes POLST Status: Full Code PD ED PE NORMAL - Vitals Vital signs reviewed: Yes - General General: Alert and oriented X 3, Well developed/nourished, Other (flat affect and tone. ) - HEENT HEENT: Pharynx benign - Neck Neck: Supple, no meningeal sign, No adenopathy - Cardiac Cardiac: RRR, No murmur - Respiratory Respiratory: No respiratory distress, Clear bilaterally - Abdomen Abdomen: Non tender - Back Back: No CVA TTP - Derm Derm: Normal color, Warm and dry - Extremities Extremities: No edema, No calf tenderness / cord - Neuro Neuro: Alert and oriented X 3, No motor deficit, No sensory deficit, Normal speech - Psych Psych: No: Normal mood (flat and depressed. ) Results - Vitals Vitals: Vital Signs - 24 hr 07/12/23 07/12/23 07/12/23 14:24 14:50 16:49 Temperature 36.1 C L Heart Rate 70 69 69 Respiratory 18 16 16 Rate Blood Pressure 144/111 H 97/59 L 121/88 H O2 Saturation 95 96 97 Oxygen O2 Source Room air - Labs Labs: Laboratory Tests 07/12/23 07/12/23 15:18 15:18 WBC 5.0 RBC 4.53 Hgb 14.5 Hct 42.5 MCV 93.8 MCH 32.0 H MCHC 34.1 RDW 12.7 Plt Count 244 MPV 9.6 Neut # (Auto) 3.0 Lymph # (Auto) 1.1 L [place] # (Auto) 0.7 Eos # (Auto) 0.1 Baso # (Auto) 0.0 Absolute Nucleated RBC 0.00 Nucleated RBC % 0.0 Sodium 134 L Potassium 2.2 L* Chloride 86 L Carbon Dioxide 37 H Anion Gap 11.0 BUN 28 H Creatinine 1.0 Estimated GFR (MDRD) 54 L Glucose 118 H Calcium 9.1 Magnesium 1.7 Total Bilirubin 0.4 AST 25 ALT 16 Alkaline Phosphatase 77 Total Creatine Kinase 49 Total Protein 6.2 L Albumin 3.1 L Globulin 3.1 Albumin/Globulin Ratio 1.0 Lipase 12 Vitamin B12 1426 H Folate 24.4 TSH 2.37 Salicylates < 1.5 Acetaminophen 0.4 Ethyl Alcohol < 10.0 PD Medical Decision Making - ED course Complexity details: reviewed results, considered differential (recent diarrhea related to abx for UTI. K low. Give IV fluids and potassium. Main issue is depression with somatic symptoms not eating, poor activity, not self-caring nor taking meds. ), d/w patient ED course: The patient's main focus of being here today was a progressive depression with dysthymia and poor appetite and excessive fatigue over the last several weeks or more progressively worse. She is now feeling unmotivated to eat and is not feeling motivation for getting out of bed according to the patient herself as well as her and her friend. The family is concerned about her due to her increasing depression. Her medications are on the shelf in bottles and not in a weekly facilities planner so they are not even sure if she has been taking them regularly or excessively. No alcohol use. No thyroid disorder. She had been seen recently for a bladder infection for which she took an antibiotic for 2 to 3 days and then developed significant diarrhea so stopped. She states the diarrhea has improved to nearly gone. Still has some mild dysuria symptoms. We can check the basic labs and also recheck a urine to see if there is still persistent infection. The diarrhea has slowed after being off the antibiotic for 2 days so do not feel we need to check for C. difficile or other processes. We can check her electrolytes and blood count. We will do the typical medical screening. However the patient's main focus of complaint and treatment at this point is pro gressive depression with somatic symptoms. She is amenable to social work evaluation and inpatient treatment if needed. Departure - Departure Clinical Impression: Depression, Hypokalemia, Diarrhea Condition: Stable Record reviewed to determine appropriate education?: Yes Forms: PCP List
[2023-07-12 15:26] LABS: BASOPHILS % (AUTO) 0.6 %; EOSINOPHILS # (AUTO) 0.1 10^3/uL (0.0-0.7); EOSINOPHILS % (AUTO) 1.4 %; HCT - HEMATOCRIT 42.5 % (37.0-47.0); HGB - HEMOGLOBIN 14.5 g/dL (12.0-16.0); LYMPHOCYTES # (AUTO) 1.1 10^3/uL (1.5-3.5); LYMPHOCYTES % (AUTO) 22.5 %; MEAN CORPUSCULAR HGB CONC 34.1 g/dL (32.0-36.0); MEAN CORPUSCULAR VOLUME 93.8 fL (81.0-99.0); MEAN PLATELET VOLUME 9.6 fL (7.9-10.8); MONOCYTES # (AUTO) 0.7 10^3/uL (0.0-1.0); MONOCYTES % (AUTO) 14.3 %; PLT - PLATELET COUNT 244 10^3/uL (130-450); RED BLOOD COUNT 4.53 10^6/uL (4.20-5.40); RED CELL DISTRIBUTION WIDTH 12.7 % (12.0-15.0)
[2023-07-12 15:39] LABS: ACETAMINOPHEN 0.4 ug/mL; ALBUMIN 3.1 g/dL (3.2-5.5); CK- CREATINE KINASE 49 IU/L (30-223); ETOH - ETHANOL < 10.0 mg/dL; LIPASE 12 U/L (11-82); MAGNESIUM 1.7 mg/dL (1.7-2.3)
[2023-07-12 15:44] LABS: ALKALINE PHOSPHATASE 77 IU/L (42-121); ALT ALANINE AMINOTRANSFERASE 16 IU/L (10-60); AST ASPARTATE AMINOTRANSFERASE 25 IU/L (10-42); BILIRUBIN,TOTAL 0.4 mg/dL (0.2-1.0); BUN - BLOOD UREA NITROGEN 28 mg/dL (6-20); CALCIUM 9.1 mg/dL (8.5-10.3); CARBON DIOXIDE - CO2 37 mmol/L (21-32); CHLORIDE 86 mmol/L (101-111); GFR - MDRD 54 (>89); GLUCOSE 118 mg/dL (74-104); POTASSIUM 2.2 mmol/L (3.5-4.5); SALICYLATE < 1.5 mg/dL; SODIUM 134 mmol/L (135-145); TOTAL PROTEIN 6.2 g/dL (6.4-8.9)
[2023-07-12 15:53] LABS: THYROID STIMULATING HORMONE 2.37 uIU/mL (0.34-5.60)
[2023-07-12] MEDS ORDERED: POTASSIUM BICARB 25 MEQ TABLET PO STA ×2 (16:06→20:14)
[2023-07-12] MEDS: POTASSIUM CHLOR 10 MEQ/100 ML 10 MEQ/100 ML BAG IV SCH ×2 (16:38→20:41)
[2023-07-12] MEDS ORDERED: MAG HYDROX/AL HYDROX/SIMETH 30 ML UDC PO STA (16:54)
[2023-07-12] MEDS ORDERED: ONDANSETRON 4 MG/2 ML VIAL IVP STA (16:54)
[2023-07-12] MEDS ORDERED: SODIUM CHLORIDE 0.9% 1,000 ML IV STA ×2 (16:54→23:25)
[2023-07-12 20:09] LABS: CALCIUM 9.1 mg/dL (8.5-10.3); CREATININE 0.9 mg/dL (0.6-1.3); POTASSIUM 2.6 mmol/L (3.5-4.5)
[2023-07-12] MEDS ORDERED: POTASSIUM BICARB 25 MEQ TABLET PO ONE (21:00)
[2023-07-12] MEDS ORDERED: POTASSIUM CHLOR 10 MEQ/100 ML 10 MEQ/100 ML BAG IV SCH (21:00)
--- NOTE | 2023-07-12 22:25 | ED Physician Documentation ---
ED Addendum - Addendum Addendum: 07/12/23 22:24 Patient's potassium was still low, therefore I ordered more oral potassium. She will be boarded in the emergency department overnight, will need a repeat potassium in the morning. Assuming her electrolytes corrected, she would then be medically clear for psychiatric care, social work or telepsychiatry could be consulted at that time. Patient signed out to the oncoming emergency department physician.
[2023-07-13 02:11] LABS: CALCIUM 8.4 mg/dL (8.5-10.3); CREATININE 0.9 mg/dL (0.6-1.3); POTASSIUM 2.8 mmol/L (3.5-4.5)
[2023-07-13] MEDS ORDERED: POTASSIUM CHLOR 10 MEQ/100 ML 10 MEQ/100 ML BAG IV STA (02:32)
[2023-07-13] MEDS ORDERED: POTASSIUM BICARB 25 MEQ TABLET PO STA (02:32)
[2023-07-13] MEDS ORDERED: SODIUM CHLORIDE 0.9% 1,000 ML IV STA (03:02)
[2023-07-13 03:12] LABS: BILIRUBIN,URINE NEGATIVE (NEGATIVE); GLUCOSE, URINE (UA) NEGATIVE (NEGATIVE); KETONES,URINE (UA) TRACE mg/dL (NEGATIVE); LEUKOCYTE ESTERASE, URINE NEGATIVE (NEGATIVE); NITRITE,URINE NEGATIVE (NEGATIVE); OCCULT BLOOD,URINE NEGATIVE (NEGATIVE); PROTEIN,URINE 30 mg/dL (NEGATIVE); UROBILINOGEN,URINE 0.2 (NORMAL) E.U./dL (NORMAL)
[2023-07-13 03:16] LABS: CLARITY,URINE CLEAR (CLEAR)
[2023-07-13 03:24] LABS: AMPHETAMINE SCREEN,URINE NEGATIVE (NEGATIVE); BACTERIA,URINE Rare /HPF (None Seen); BARBITURATE SCREEN,UR NEGATIVE (NEGATIVE); BENZODIAZEPINES SCREEN, URINE NEGATIVE (NEGATIVE); BUPRENORPHINE SCREEN, URINE NEGATIVE (NEGATIVE); COCAINE SCREEN URINE NEGATIVE (NEGATIVE); METHADONE SCREEN, URINE NEGATIVE (NEGATIVE); METHAMPHETAMINES SCREEN, URINE NEGATIVE (NEGATIVE); OPIATE SCREEN, URINE NEGATIVE (NEGATIVE); OXYCODONE SCREEN, URINE NEGATIVE (NEGATIVE); RBC,URINE 0-5 /HPF (0-5); SQUAMOUS EPITHELIAL CELL,UR FEW Squamous (<= Few); THC CANNABINOID SCREEN, URINE NEGATIVE (NEGATIVE); TRICYCLIC ANTIDEPRESSANT,URINE NEGATIVE (NEGATIVE); WBC,URINE 0-3 /HPF (0-5)
[2023-07-13] MEDS ORDERED: POTASSIUM CHLORIDE 20 MEQ TABLET PO ONE ×2 (08:18→10:00)
--- NOTE | 2023-07-13 08:34 | ED Physician Documentation ---
ED Addendum - Addendum Addendum: Patient was signed out to me at shift change. She presented for depression, lack of appetite. Recently started on an antibiotic for UTI but developed diarrhea. Noted to have low potassium so replacement has been ordered through yesterday afternoon and into the overnight hours. On recheck this morning potassium is 2.7 which is slightly increased from presenting labs where it was 2.2 but nonetheless remains low. Diet order has been added this morning. Additional p.o. and IV potassium have been ordered. Will recheck later this morning with hopes of continued improvement and thus can clear patient for telepsychiatry evaluation. 07/13/23 11:56 Per social work, potassium level needs to be 3.1. Most recent check it is 2.6 so additional p.o. replacement was ordered. I have also added on a magnesium level. Will continue to follow potassium levels. 07/13/23 15:13 K is 3.7. Pt is medically cleared. Social work has seen pt and is working on placement. Pt signed out at shift change.
[2023-07-13] MEDS: POTASSIUM CHLOR 10 MEQ/100 ML 10 MEQ/100 ML BAG IV SCH ×2 (09:37→11:39)
[2023-07-13] MEDS ORDERED: POTASSIUM CHLORIDE 20 MEQ TABLET PO STA (09:40)
[2023-07-13] MEDS ORDERED: POTASSIUM CHLOR 10 MEQ/100 ML 10 MEQ/100 ML BAG IV SCH (11:00)
[2023-07-13] MEDS ORDERED: POTASSIUM BICARB 25 MEQ TABLET PO ONE (11:47)
--- NOTE | 2023-07-13 18:36 | ED Physician Documentation ---
ED Addendum - Addendum Addendum: 07/13/23 18:35 [facility]. COBRA forms completed. Dr. Munoz accepts. Departure - Departure Disposition: [facility]/Unit DC/Xfer Clinical Impression: Hypokalemia Depression Qualifiers: Depression Type: unspecified Qualified Code(s): F32.A - Depression, unspecified Diarrhea Qualifiers: Diarrhea type: unspecified type Qualified Code(s): R19.7 - Diarrhea, unspecified Condition: Stable Forms: PCP List
[2023-07-13 20:15] VITALS: BP 158/88; O2SAT 96
== END 2023-07-13 20:16 ==
LOC: ED 14:10
DX: R19.7 Diarrhea, unspecified (principal); E87.6 Hypokalemia; F32.A Depression, unspecified; I10 Essential (primary) hypertension
CPT/HCPCS: 36415; 80048; 80053; 80306; 80307; 81001; 82550; 82607; 82746; 83690; 83735; 84132; 84443; 85025; 87635; 93005; 96361; 96365; 96366; 99284; 99285; A9270; G0480; 80320; 80329; 81003; 87086

== ENCOUNTER 2023-11-21 11:45 | Outpatient (CLI) | payer MEDICARE, OTHER ==
[2023-11-21 17:44] LABS: BASOPHILS % (AUTO) 0.5 %; EOSINOPHILS # (AUTO) 0.1 10^3/uL (0.0-0.7); EOSINOPHILS % (AUTO) 1.7 %; HCT - HEMATOCRIT 44.3 % (37.0-47.0); HGB - HEMOGLOBIN 13.8 g/dL (12.0-16.0); LYMPHOCYTES # (AUTO) 1.5 10^3/uL (1.5-3.5); LYMPHOCYTES % (AUTO) 22.4 %; MEAN CORPUSCULAR HEMOGLOBIN 30.5 pg (27.0-31.0); MEAN CORPUSCULAR HGB CONC 31.2 g/dL (32.0-36.0); MEAN PLATELET VOLUME 9.4 fL (7.9-10.8); MONOCYTES # (AUTO) 0.6 10^3/uL (0.0-1.0); MONOCYTES % (AUTO) 9.8 %; NEUTROPHILS # (AUTO) 4.2 10^3/uL (1.5-6.6); NEUTROPHILS % (AUTO) 65.4 %; PLT - PLATELET COUNT 287 10^3/uL (130-450); RED BLOOD COUNT 4.52 10^6/uL (4.20-5.40); RED CELL DISTRIBUTION WIDTH 12.4 % (12.0-15.0); WHITE BLOOD COUNT 6.5 x10^3/uL (4.8-10.8)
[2023-11-21 18:04] LABS: CALCIUM 9.8 mg/dL (8.5-10.3); CREATININE 0.7 mg/dL (0.6-1.3); POTASSIUM 4.1 mmol/L (3.5-4.5)
== END 2023-11-21 11:46 | disposition home or self-care (01) ==
LOC: LAB.N 11:45
PROVIDERS: ATTEND Physician Assistant
DX: E87.6 Hypokalemia (principal); N17.9 Acute kidney failure, unspecified; D72.829 Elevated white blood cell count, unspecified
CPT/HCPCS: 36415; 80048; 85025

== ENCOUNTER 2023-11-22 20:29 | Outpatient (CLI) | payer MEDICARE, OTHER | END 2023-11-22 23:59 | disposition critical access hospital (66) | LOC: EMS 20:29 | DX: R07.89 Other chest pain (principal); R11.0 Nausea | CPT/HCPCS: A0425; A0427 ==

== ENCOUNTER 2023-11-22 20:53 | Emergency (ER) | payer MEDICARE, OTHER ==
--- NOTE | 2023-11-22 21:08 | ED Physician Documentation ---
PD HPI CHEST PAIN - Stated complaint Stated Complaint: CP - History obtained from History obtained from: Patient, EMS - Additional information Additional information: 73-year-old female with history of CAD status post stents (last stent 20 yrs ago per pt), DVT on Eliquis, hypertension, depression, anxiety presents by EMS from home for left-sided chest pain that radiated to her left arm and jaw. Symptoms began approximately 1 hour prior to arrival while patient was sitting and resting at home. Patient was given nitroglycerin and aspirin by EMS as well as small dose of morphine, which improved her pain to a 3 out of 10.Patient follow ed by Dr. Simons of cardiology in [place]. Patient states that she goes to physical therapy and earlier today did dumbbell weights. She thinks she may have stretched something, but due to her history she wanted to be on the safe side and come to the emergency department to be checked out. PD PAST MEDICAL HISTORY - Past Medical History Cardiovascular: Hypertension, High cholesterol, Coronary artery disease, Angina, [place] Respiratory: None Neuro: None Endocrine/Autoimmune: None GI: None, GERD, Hiatal hernia : None HEENT: None Psych: Depression Musculoskeletal: Osteoarthritis, Osteoporosis Derm: None - Past Surgical History Past Surgical History: Yes General: Hiatal hernia repair Ortho: Knee replacement Cardiovascular: Coronary stent HEENT: Cataracts, Tonsil/Adenoidectomy - Present Medications Home Medications: Ambulatory Orders Medication Instructions Recorded Confirmed Ascorbic Acid [Acerola C] 500 mg PO DAILY 12/18/12 07/13/23 Cholecalciferol (Vitamin D3) 3,000 unit PO DAILY 12/18/12 07/13/23 [Vitamin D] Clopidogrel [Plavix] 75 mg PO DAILY 12/18/12 07/13/23 Duloxetine HCl [Cymbalta] 60 mg PO DAILY 12/18/12 07/13/23 Multivitamin [Multivitamins] 1 each PO DAILY 12/18/12 07/13/23 Rosuvastatin Calcium [Crestor] 40 mg PO DAILY 12/18/12 07/13/23 Acetaminophen 1,000 mg PO Q8HR PRN 09/11/15 07/13/23 Divalproex [Kelly Ovalles] 750 mg ORAL DAILY PM 03/08/23 07/13/23 Ondansetron Odt [Zofran] 4 mg TL Q6H PRN #10 tablet 07/04/23 07/13/23 Docusate Sodium [Dok] 100 mg PO BID 07/13/23 07/13/23 Lisinopril [Zestril] 10 mg PO DAILY 07/13/23 07/13/23 Metoprolol Tartrate [Lopressor] 100 mg PO BID 07/13/23 07/13/23 Topiramate 50 mg PO BID 07/13/23 07/13/23 hydroCHLOROthiazide [Hydrodiuril] 25 mg PO DAILY 07/13/23 07/13/23 polyethylene glycoL 3350 [Miralax] 17 g PO DAILY PRN 07/13/23 07/13/23 Nitroglycerin [Nitrostat] 0.4 mg SL Q5MIN PRN #1 tab 11/23/23 - Allergies Allergies/Adverse Reactions: Allergies Allergy/AdvReac Type Severity Reaction Status Date / Time desvenlafaxine Allergy Mild Headache Verified 11/22/23 21:27 [Desvenlafaxine] phenobarbital Allergy Mild depression Verified 11/22/23 21:27 desvenlafaxine succinate * Allergy Unknown Unknown Verified 11/22/23 21:27 [From Pristiq] bupropion HCl * Allergy Headache Verified 11/22/23 21:27 [From Wellbutrin] ibuprofen Allergy Unknown Verified 11/22/23 21:27 lidocaine Allergy Unknown Verified 11/22/23 21:27 propoxyphene HCl * Allergy Headache Verified 11/22/23 21:27 [From Darvon] adhesive tape AdvReac Rash Verified 11/22/23 21:27 aripiprazole [From Abilify] AdvReac tremors Verified 11/22/23 21:27 citalopram AdvReac Headache Verified 11/22/23 21:27 indomethacin AdvReac unknown Verified 11/22/23 21:27 - Social History Does the pt smoke?: No Smoking Status: Never smoker Does the pt drink ETOH?: Yes Does the pt have substance abuse?: No - Immunizations Immunizations are current?: Yes - POLST Patient has POLST: Yes POLST Status: Full Code Results - Vitals Vitals: Vital Signs - 24 hr 11/22/23 11/22/23 11/22/23 21:18 22:00 22:30 Temperature 36.8 C Heart Rate 80 83 81 Respiratory 16 18 18 Rate Blood Pressure 163/90 H 173/105 H 185/105 H O2 Saturation 94 95 94 If not protocol 2 : Oxygen Flow, liters/minute 11/22/23 11/23/23 23:00 00:00 Temperature Heart Rate 82 78 Respiratory 16 16 Rate Blood Pressure 175/119 H 153/77 H O2 Saturation 92 92 If not protocol : Oxygen Flow, liters/minute Oxygen O2 Source Room air - EKG (time done) 210 EKG releavant findings:: EKG personally interpreted by author of this note. Relevant findings are: Rate: Rate (enter#) (84) Rhythm: NSR [place]: Normal Intervals: Normal IN QRS: Normal Ischemia: Normal ST segments - Labs Labs: Laboratory Tests 11/22/23 11/22/23 11/22/23 21:10 21:10 21:10 WBC 5.7 RBC 4.23 Hgb 13.3 Hct 40.5 MCV 95.7 MCH 31.4 H MCHC 32.8 RDW 12.0 Plt Count 268 MPV 9.0 Neut # (Auto) 2.5 Lymph # (Auto) 2.4 [place] # (Auto) 0.6 Eos # (Auto) 0.1 Baso # (Auto) 0.0 Absolute Nucleated RBC 0.00 Nucleated RBC % 0.0 PT 13.2 H INR 1.2 Sodium 140 Potassium 3.6 Chloride 106 Carbon Dioxide 29 Anion Gap 5.0 L BUN 22 H Creatinine 0.6 Estimated GFR (MDRD) 98 Glucose 127 H Calcium 9.7 Total Bilirubin 0.3 AST 21 ALT 18 Alkaline Phosphatase 134 H Troponin I High Sens 3.8 Total Protein 6.9 Albumin 3.6 Globulin 3.3 Albumin/Globulin Ratio 1.1 11/22/23 23:15 WBC RBC Hgb Hct MCV MCH MCHC RDW Plt Count MPV Neut # (Auto) Lymph # (Auto) [place] # (Auto) Eos # (Auto) Baso # (Auto) Absolute Nucleated RBC Nucleated RBC % PT INR Sodium Potassium Chloride Carbon Dioxide Anion Gap BUN Creatinine Estimated GFR (MDRD) Glucose Calcium Total Bilirubin AST ALT Alkaline Phosphatase Troponin I High Sens 3.1 Total Protein Albumin Globulin Albumin/Globulin Ratio PD Medical Decision Making - ED course Complexity details: reviewed old records, reviewed results, re-evaluated patient, considered differential, d/w patient ED course: Otherwise well-appearing patient with left-sided chest pain. Initial EKG as well as EKG reviewed with paramedics is reassuring, no obvious acute ischemic findings. Laboratory work and x-ray imaging ordered. Laboratory work is reviewed, no acute abnormalities identified. Initial troponin is 3. Since patient presented relatively quickly after onset of her chest pain will obtain 2-hour repeat troponin. If negative then plan to discharge patient with cardiology follow-up instructions. 2-hour troponin is otherwise unchanged from prior. Patient resting comfortably in bed, vital signs stable. Patient was informed of all lab and imaging findings, she is relieved to know that her laboratory work is reassuring and is excited to go home. She states that she will call her student assistant office, however she already has an appointment scheduled in the next several weeks with him. Patient requested a prescription for nitroglycerin "just in case" to be sent to her pharmacy, since her nitroglycerin in 2018. Nitro sent to pharmacy of choice. ED return precautions discussed at bedside. Departure - Departure Disposition: Home, Self Care Clinical Impression: Chest discomfort Condition: Stable Instructions: ED Chest Pain Atypical Unkn Cause Prescriptions: Nitroglycerin [Nitrostat] 0.4 mg SL Q5MIN PRN #1 tab PRN Reason: Chest Pain Comments: Your EKG, laboratory work, and chest x-ray were normal today. I do not know the cause of your chest pain but your workup here is reassuring. Please follow-up with your student assistant. Return to the emergency department if you notice new or worsening pain. [facility] Forms: PCP List Discharge Date/Time: 11/23/23 00:20
[2023-11-22 21:19] LABS: BASOPHILS % (AUTO) 0.5 %; EOSINOPHILS # (AUTO) 0.1 10^3/uL (0.0-0.7); EOSINOPHILS % (AUTO) 2.1 %; HCT - HEMATOCRIT 40.5 % (37.0-47.0); HGB - HEMOGLOBIN 13.3 g/dL (12.0-16.0); LYMPHOCYTES # (AUTO) 2.4 10^3/uL (1.5-3.5); LYMPHOCYTES % (AUTO) 42.6 %; MEAN CORPUSCULAR HEMOGLOBIN 31.4 pg (27.0-31.0); MEAN CORPUSCULAR HGB CONC 32.8 g/dL (32.0-36.0); MEAN CORPUSCULAR VOLUME 95.7 fL (81.0-99.0); MONOCYTES # (AUTO) 0.6 10^3/uL (0.0-1.0); MONOCYTES % (AUTO) 9.9 %; NEUTROPHILS # (AUTO) 2.5 10^3/uL (1.5-6.6); NEUTROPHILS % (AUTO) 44.7 %; PLT - PLATELET COUNT 268 10^3/uL (130-450); RED BLOOD COUNT 4.23 10^6/uL (4.20-5.40); WHITE BLOOD COUNT 5.7 x10^3/uL (4.8-10.8)
[2023-11-22 21:33] LABS: ALBUMIN 3.6 g/dL (3.2-5.5); ALBUMIN/GLOBULIN RATIO 1.1 (1.0-2.2); BILIRUBIN,TOTAL 0.3 mg/dL (0.2-1.0); CALCIUM 9.7 mg/dL (8.5-10.3); CREATININE 0.6 mg/dL (0.6-1.3); POTASSIUM 3.6 mmol/L (3.5-4.5); TOTAL PROTEIN 6.9 g/dL (6.4-8.9)
[2023-11-22 21:39] LABS: TROPONIN I HIGH SENSITIVITY 3.8 ng/L (2.3-14.8)
[2023-11-22 21:43] LABS: INR 1.2 (0.8-1.2); PT - PROTHROMBIN TIME 13.2 secs (9.9-12.6)
--- NOTE | 2023-11-22 21:55 | XRAY Report ---
PROCEDURE: Chest 1V INDICATIONS: L CHEST PAIN TECHNIQUE: One view of the chest was acquired. COMPARISON: Chest x-ray 10/11/2014 FINDINGS: Surgical changes and devices: None. Lungs and pleura: Minimal costophrenic angle blunting bilaterally. Mediastinum: Mediastinal contours appear normal. Heart size is mildly prominent. Bones and chest wall: No suspicious bony lesions. Overlying soft tissues appear unremarkable. IMPRESSION: Minimal bilateral costophrenic angle blunting suspected to be related to scarring versus minimal effu sions. Reviewed by: Alis Tejada MD on 11/22/2023 9:54 PM PDT Approved by: Alis Tejada MD on 11/22/2023 9:54 PM PDT Station ID: [id number]
[2023-11-23 00:27] VITALS: BP 153/77; O2SAT 92
== END 2023-11-23 00:20 | disposition home or self-care (01) ==
LOC: EDUNIT# → ED 20:53
DX: R07.89 Other chest pain (principal); I25.10 Atherosclerotic heart disease of native coronary artery without angina pectoris; Z95.5 Presence of coronary angioplasty implant and graft; I10 Essential (primary) hypertension; E78.00 Pure hypercholesterolemia, unspecified; Z86.718 Personal history of other venous thrombosis and embolism; Z79.01 Long term (current) use of anticoagulants; F32.A Depression, unspecified; F41.9 Anxiety disorder, unspecified; K21.9 Gastro-esophageal reflux disease without esophagitis; Z79.02 Long term (current) use of antithrombotics/antiplatelets
CPT/HCPCS: 36415; 80053; 84484; 85025; 85610; 93005; 99284

== ENCOUNTER 2023-12-22 20:37 | Outpatient (CLI) | payer MEDICARE, OTHER | END 2023-12-22 20:38 | disposition left against medical advice (07) | LOC: EMS 20:37 | DX: R07.89 Other chest pain (principal) ==

== ENCOUNTER 2023-12-27 14:34 | Outpatient (CLI) | payer MEDICARE, OTHER | END 2023-12-27 23:59 | disposition short-term general hospital (02) | LOC: EMS 14:34 | DX: R07.89 Other chest pain (principal); R42 Dizziness and giddiness | CPT/HCPCS: A0425; A0427 ==

== ENCOUNTER 2023-12-29 12:54 | Outpatient (CLI) | payer MEDICARE, OTHER | END 2023-12-29 23:59 | disposition short-term general hospital (02) | LOC: EMS 12:54 | DX: R07.89 Other chest pain (principal) | CPT/HCPCS: A0425; A0427; A0888 ==

== ENCOUNTER 2024-01-11 15:46 | Outpatient (CLI) | payer MEDICARE, OTHER | END 2024-01-11 15:47 | disposition EMS.NT | LOC: EMS 15:46 | DX: Z03.89 Encounter for observation for other suspected diseases and conditions ruled out (principal) ==

== ENCOUNTER 2024-01-16 22:20 | Outpatient (CLI) | payer MEDICARE, OTHER | END 2024-01-16 23:59 | disposition short-term general hospital (02) | LOC: EMS 22:20 | DX: R07.89 Other chest pain (principal); R68.84 Jaw pain; M79.602 Pain in left arm | CPT/HCPCS: A0425; A0429 ==

== ENCOUNTER 2024-01-18 22:40 | Outpatient (CLI) | payer MEDICARE, OTHER | END 2024-01-18 23:59 | disposition short-term general hospital (02) | LOC: EMS 22:40 | DX: R07.89 Other chest pain (principal); R68.84 Jaw pain; M79.602 Pain in left arm; R10.812 Left upper quadrant abdominal tenderness; I10 Essential (primary) hypertension | CPT/HCPCS: A0425; A0427; A0888 ==

== ENCOUNTER 2024-01-29 21:05 | Outpatient (CLI) | payer MEDICARE, OTHER | END 2024-01-29 23:59 | disposition short-term general hospital (02) | LOC: EMS 21:05 | DX: R10.12 Left upper quadrant pain (principal); F41.9 Anxiety disorder, unspecified | CPT/HCPCS: A0425; A0427 ==

== ENCOUNTER 2024-02-22 15:01 | Outpatient (CLI) | payer MEDICARE, OTHER | END 2024-02-22 23:59 | disposition short-term general hospital (02) | LOC: EMS 15:01 | DX: R07.9 Chest pain, unspecified (principal); E66.9 Obesity, unspecified; R45.89 Other symptoms and signs involving emotional state | CPT/HCPCS: A0425; A0429; A0888 ==

== ENCOUNTER 2024-02-28 22:18 | Outpatient (CLI) | payer MEDICARE, OTHER | END 2024-02-28 22:19 | disposition short-term general hospital (02) | LOC: EMS 22:18 | DX: R10.12 Left upper quadrant pain (principal); R10.32 Left lower quadrant pain; R07.89 Other chest pain | CPT/HCPCS: A0425; A0427; A0888 ==

== ENCOUNTER 2024-03-20 17:37 | Outpatient (CLI) | payer MEDICARE, OTHER | END 2024-03-20 17:38 | disposition critical access hospital (66) | LOC: EMS 17:37 | DX: R07.9 Chest pain, unspecified (principal) | CPT/HCPCS: A0425; A0427 ==

== ENCOUNTER 2024-03-20 18:23 | Emergency (ER) | payer MEDICARE, OTHER ==
--- NOTE | 2024-03-20 18:26 | ED Physician Documentation ---
History of Present Illness - Stated complaint Stated Complaint: CP PD PAST MEDICAL HISTORY - Past Medical History Cardiovascular: Hypertension, High cholesterol, Coronary artery disease, Angina, [place] Respiratory: None Neuro: None Endocrine/Autoimmune: None GI: None, GERD, Hiatal hernia : None HEENT: None Psych: Depression Musculoskeletal: Osteoarthritis, Osteoporosis Derm: None - Past Surgical History Past Surgical History: Yes General: Hiatal hernia repair Ortho: Knee replacement Cardiovascular: Coronary stent HEENT: Cataracts, Tonsil/Adenoidectomy - Present Medications Home Medications: Ambulatory Orders Medication Instructions Recorded Confirmed Ascorbic Acid [Acerola C] 500 mg PO DAILY 12/18/12 07/13/23 Cholecalciferol (Vitamin D3) 3,000 unit PO DAILY 12/18/12 07/13/23 [Vitamin D] Clopidogrel [Plavix] 75 mg PO DAILY 12/18/12 07/13/23 Duloxetine HCl [Cymbalta] 60 mg PO DAILY 12/18/12 07/13/23 Multivitamin [Multivitamins] 1 each PO DAILY 12/18/12 07/13/23 Rosuvastatin Calcium [Crestor] 40 mg PO DAILY 12/18/12 07/13/23 Acetaminophen 1,000 mg PO Q8HR PRN 09/11/15 07/13/[address] [Depakote Dr] 750 mg ORAL DAILY PM 03/08/23 07/13/23 Ondansetron Odt [Zofran] 4 mg TL Q6H PRN #10 tablet 07/04/23 07/13/23 Docusate Sodium [Dok] 100 mg PO BID 07/13/23 07/13/23 Lisinopril [Zestril] 10 mg PO DAILY 07/13/23 07/13/23 Metoprolol Tartrate [Lopressor] 100 mg PO BID 07/13/23 07/13/23 Topiramate 50 mg PO BID 07/13/23 07/13/23 hydroCHLOROthiazide [Hydrodiuril] 25 mg PO DAILY 07/13/23 07/13/23 polyethylene glycoL 3350 [Miralax] 17 g PO DAILY PRN 07/13/23 07/13/23 Nitroglycerin [Nitrostat] 0.4 mg SL Q5MIN PRN #1 tab 11/23/23 - Allergies Allergies/Adverse Reactions: Allergies Allergy/AdvReac Type Severity Reaction Status Date / Time desvenlafaxine Allergy Mild Headache Verified 01/19/24 10:28 [Desvenlafaxine] phenobarbital Allergy Mild depression Verified 01/19/24 10:28 desvenlafaxine succinate * Allergy Unknown Unknown Verified 01/19/24 10:28 [From Pristiq] bupropion HCl * Allergy Headache Verified 01/19/24 10:28 [From Wellbutrin] ibuprofen Allergy Unknown Verified 01/19/24 10:28 lidocaine Allergy Unknown Verified 01/19/24 10:28 propoxyphene HCl * Allergy Headache Verified 01/19/24 10:28 [From Darvon] adhesive tape AdvReac Rash Verified 01/19/24 10:28 aripiprazole [From Abilify] AdvReac tremors Verified 01/19/24 10:28 citalopram AdvReac Headache Verified 01/19/24 10:28 indomethacin AdvReac unknown Verified 01/19/24 10:28 - Social History Does the pt smoke?: No Smoking Status: Never smoker Does the pt drink ETOH?: Yes Does the pt have substance abuse?: No - Immunizations Immunizations are current?: Yes - POLST Patient has POLST: Yes POLST Status: Full Code Results - Vitals Vitals: Oxygen O2 Source Room air
[2024-03-20 18:47] LABS: BASOPHILS % (AUTO) 0.4 %; EOSINOPHILS # (AUTO) 0.1 10^3/uL (0.0-0.7); EOSINOPHILS % (AUTO) 1.8 %; HCT - HEMATOCRIT 39.9 % (37.0-47.0); HGB - HEMOGLOBIN 12.6 g/dL (12.0-16.0); LYMPHOCYTES % (AUTO) 29.4 %; MEAN CORPUSCULAR HEMOGLOBIN 30.5 pg (27.0-31.0); MEAN CORPUSCULAR HGB CONC 31.6 g/dL (32.0-36.0); MEAN CORPUSCULAR VOLUME 96.6 fL (81.0-99.0); MEAN PLATELET VOLUME 8.8 fL (7.9-10.8); MONOCYTES # (AUTO) 0.7 10^3/uL (0.0-1.0); MONOCYTES % (AUTO) 10.4 %; NEUTROPHILS # (AUTO) 3.9 10^3/uL (1.5-6.6); NEUTROPHILS % (AUTO) 57.7 %; PLT - PLATELET COUNT 285 10^3/uL (130-450); RED BLOOD COUNT 4.13 10^6/uL (4.20-5.40); RED CELL DISTRIBUTION WIDTH 12.7 % (12.0-15.0); WHITE BLOOD COUNT 6.7 x10^3/uL (4.8-10.8)
--- NOTE | 2024-03-20 19:01 | ED Physician Documentation ---
History of Present Illness - Stated complaint Stated Complaint: CP - Chief complaint Chief Complaint: Cardiac - Additonal information Additional information: Patient is a 74-year-old female presenting to the emergency department with past medical history of coronary artery disease history of esophageal spasm and reflux who presents to the emergency department with chest pain radiating up to her jaw and mid back. She notes symptoms started around 330 and have been persistent since then. She notes they have progressively worsened until she called EMS. She is given Nitropaste and aspirin 325 at the time. She notes this resolved her pain on arrival. She notes mild nausea but symptoms improved after Zofran was given in EMS truck as well. Patient denies any epigastric pain. She did take her reflux medications early this morning and symptoms did worsen around 12 this afternoon. PD PAST MEDICAL HISTORY - Past Medical History Cardiovascular: Hypertension, High cholesterol, Coronary artery disease, Angina, [place] Respiratory: None Neuro: None Endocrine/Autoimmune: None GI: None, GERD, Hiatal hernia : None HEENT: None Psych: Depression Musculoskeletal: Osteoarthritis, Osteoporosis Derm: None - Past Surgical History Past Surgical History: Yes General: Hiatal hernia repair Ortho: Knee replacement Cardiovascular: Coronary stent HEENT: Cataracts, Tonsil/Adenoidectomy - Present Medications Home Medications: Ambulatory Orders Medication Instructions Recorded Confirmed Ascorbic Acid [Acerola C] 500 mg PO DAILY 12/18/12 07/13/23 Cholecalciferol (Vitamin D3) 3,000 unit PO DAILY 12/18/12 07/13/23 [Vitamin D] Clopidogrel [Plavix] 75 mg PO DAILY 12/18/12 07/13/23 Duloxetine HCl [Cymbalta] 60 mg PO DAILY 12/18/12 07/13/23 Multivitamin [Multivitamins] 1 each PO DAILY 12/18/12 07/13/23 Rosuvastatin Calcium [Crestor] 40 mg PO DAILY 12/18/12 07/13/23 Acetaminophen 1,000 mg PO Q8HR PRN 09/11/15 07/13/23 Divalproex [Kelly Ovalles] 750 mg ORAL DAILY PM 03/08/23 07/13/23 Ondansetron Odt [Zofran] 4 mg TL Q6H PRN #10 tablet 07/04/23 07/13/23 Docusate Sodium [Dok] 100 mg PO BID 07/13/23 07/13/23 Lisinopril [Zestril] 10 mg PO DAILY 07/13/23 07/13/23 Metoprolol Tartrate [Lopressor] 100 mg PO BID 07/13/23 07/13/23 Topiramate 50 mg PO BID 07/13/23 07/13/23 hydroCHLOROthiazide [Hydrodiuril] 25 mg PO DAILY 07/13/23 07/13/23 polyethylene glycoL 3350 [Miralax] 17 g PO DAILY PRN 07/13/23 07/13/23 Nitroglycerin [Nitrostat] 0.4 mg SL Q5MIN PRN #1 tab 11/23/23 - Allergies Allergies/Adverse Reactions: Allergies Allergy/AdvReac Type Severity Reaction Status Date / Time desvenlafaxine Allergy Mild Headache Verified 03/20/24 19:00 [Desvenlafaxine] phenobarbital Allergy Mild depression Verified 03/20/24 19:00 desvenlafaxine succinate * Allergy Unknown Unknown Verified 03/20/24 19:00 [From Pristiq] bupropion HCl * Allergy Headache Verified 03/20/24 19:00 [From Wellbutrin] ibuprofen Allergy Unknown Verified 03/20/24 19:00 lidocaine Allergy Unknown Verified 03/20/24 19:00 propoxyphene HCl * Allergy Headache Verified 03/20/24 19:00 [From Darvon] adhesive tape AdvReac Rash Verified 03/20/24 19:00 aripiprazole [From Abilify] AdvReac tremors Verified 03/20/24 19:00 citalopram AdvReac Headache Verified 03/20/24 19:00 indomethacin AdvReac unknown Verified 03/20/24 19:00 - Social History Does the pt smoke?: No Smoking Status: Never smoker Does the pt drink ETOH?: Yes Does the pt have substance abuse?: No - Immunizations Immunizations are current?: Yes - POLST Patient has POLST: Yes POLST Status: Full Code Results - Vitals Vitals: Vital Signs - 24 hr 03/20/24 03/20/24 03/20/24 18:38 19:49 21:00 Temperature 37.1 C Heart Rate 78 85 88 Respiratory 16 16 16 Rate Blood Pressure 156/78 H 126/76 168/75 H O2 Saturation 98 96 99 Oxygen O2 Source Room air - EKG (time done) 1899 EKG releavant findings:: EKG personally interpreted by author of this note. Relevant findings are: Rate: Rate (enter#), Lorenzo, Tachy, Other Rhythm: NSR Anna: Normal Intervals: Normal HI QRS: Normal Ischemia: Normal ST segments Other comments: Other comments Compare to prior EKG: Unchanged from prior EKG Computer interpretation: Agree with computer 2009 EKG releavant findings:: EKG personally interpreted by author of this note. Relevant findings are: Rate: Rate (enter#) Rhythm: NSR Anna: Normal Intervals: Normal HI QRS: Normal Ischemia: Normal ST segments Compare to prior EKG: Unchanged from prior EKG Computer interpretation: Agree with computer - Labs Labs: Laboratory Tests 03/20/24 03/20/24 03/20/24 18:40 18:40 18:40 WBC 6.7 RBC 4.13 L Hgb 12.6 Hct 39.9 MCV 96.6 MCH 30.5 MCHC 31.6 L RDW 12.7 Plt Count 285 MPV 8.8 Neut # (Auto) 3.9 Lymph # (Auto) 2.0 Loíza # (Auto) 0.7 Eos # (Auto) 0.1 Baso # (Auto) 0.0 Absolute Nucleated RBC 0.00 Nucleated RBC % 0.0 D-Dimer Sodium 141 Potassium 3.8 Chloride 104 Carbon Dioxide 29 Anion Gap 8.0 BUN 18 Creatinine 0.7 Estimated GFR (MDRD) 82 L Glucose 146 H Calcium 9.4 Total Bilirubin 0.4 AST 68 H ALT 155 H Alkaline Phosphatase 257 H Troponin I High Sens 5.0 B-Natriuretic Peptide 28 Total Protein 6.9 Albumin 3.8 Globulin 3.1 Albumin/Globulin Ratio 1.2 Lipase 12 03/20/24 03/20/24 18:40 19:58 WBC RBC Hgb Hct MCV MCH MCHC RDW Plt Count MPV Neut # (Auto) Lymph # (Auto) Loíza # (Auto) Eos # (Auto) Baso # (Auto) Absolute Nucleated RBC Nucleated RBC % D-Dimer 638.2 H Sodium Potassium Chloride Carbon Dioxide Anion Gap BUN Creatinine Estimated GFR (MDRD) Glucose Calcium Total Bilirubin AST ALT Alkaline Phosphatase Troponin I High Sens 5.0 B-Natriuretic Peptide Total Protein Albumin Globulin Albumin/Globulin Ratio Lipase - Rads (name of study) Chest X-ray Relevant Findings:: EMP independent interpretation of test CT PE Relevant Findings:: EMP independent interpretation of test PD Medical Decision Making - ED course Complexity details: reviewed old records, reviewed results, re-evaluated patient ED course: Patient is a 74-year-old female presenting to the emergency department with chest pain that starts in the middle of her chest radiates up to her left jaw that radiates to her back. She does have history of coronary artery disease. She was brought in by EMS had Nitropaste over her left side of her chest which relieved her symptoms and aspirin 325. Patient has history of coronary artery disease. She takes Plavix at home for history of DVTs as well. Vitals on arrival are reassuring. Physical exam shows no reproducible chest pain. Mild epigastric tenderness no CVA tenderness. Clear breath sounds on auscultation. Pulses intact in upper and lower extremities. Labs obtained here in the emergency department initial troponin is within normal range additionally CBC shows no significant leukocytosis. Lipase is within normal range however slight elevation in LFTs and increasing ALP compared to previous labs. Patient's pain returned here in emergency department. Patient given a dose of Toradol with no relief and a dose of Zofran for persistent n ausea. Patient given Reglan and Benadryl for symptoms as well as Dilaudid for pain control. Patient reports a history of allergy to morphine but has had Dilaudid in the past with no allergic reactions. Patient chest x-ray showed possible effusions but no other acute findings. Given patient's history of recurrent DVTs will obtain CT chest as elevated D- dimer here in emergency department. CT chest shows no acute findings no signs of PE. Ultrasound of right upper quadrant obtained here in the emergency department shows no gallbladder but there is dilated common bile duct at [address] abdomen pelvis previously within the last year showed no signs of dilated duct. No signs of stone in duct on examination. Given concerning LFTs we will also obtain CT abdomen pelvis. Patient already went for CT scan of her chest will obtain CT abdomen pelvis without contrast here in the emergency department. Reevaluated patient after intermittent doses of Dilaudid and Zofran and Reglan and Benadryl patient's symptoms have resolved here in emergency department. Pending repeat troponin and repeat CMP and CT abdomen pelvis here in emergency department. Patient taken over at this time by Dr. Arias. Departure - Departure Clinical Impression: Atypical chest pain, Epigastric pain, Transaminitis, Nausea and vomiting Forms: PCP List
[2024-03-20 19:04] LABS: ALBUMIN 3.8 g/dL (3.2-5.5); ALBUMIN/GLOBULIN RATIO 1.2 (1.0-2.2); BILIRUBIN,TOTAL 0.4 mg/dL (0.2-1.0); CALCIUM 9.4 mg/dL (8.5-10.3); CREATININE 0.7 mg/dL (0.6-1.3); POTASSIUM 3.8 mmol/L (3.5-4.5); TOTAL PROTEIN 6.9 g/dL (6.4-8.9)
--- NOTE | 2024-03-20 19:10 | XRAY Report ---
PROCEDURE: Chest 1V INDICATIONS: chest pain TECHNIQUE: One view of the chest was acquired. COMPARISON: 11/22/2023 FINDINGS: Surgical changes and devices: None Lungs and pleura: Low lung volumes. Bibasilar mild to moderate opacities and possible trace effusion s. Mediastinum: Heart size is at the upper limit of normal, unchanged Bones and chest wall: Degenerative changes IMPRESSION: Mild bibasilar opacities and possible trace effusions, likely edema or infection with superimposed at electasis. Low lung volumes. Consider future imaging surveillance to assess for resolution. Reviewed by: Binu Mcclendon MD on 03/20/2024 7:08 PM PDT Approved by: Binu Mcclendon MD on 03/20/2024 7:08 PM PDT Station ID: [id number]
[2024-03-20] MEDS: ONDANSETRON 4 MG/2 ML VIAL IVP STA (20:04)
[2024-03-20] MEDS: MORPHINE 2 MG/ML CARPUJECT IVP STA (20:05)
[2024-03-20] MEDS: KETOROLAC 15 MG/ML VIAL IVP STA (20:06)
[2024-03-20] MEDS: KETOROLAC 15 MG/ML VIAL IM STA (20:22)
--- NOTE | 2024-03-20 20:58 | Ultrasound Report ---
PROCEDURE: Abdomen Limited INDICATIONS: right upper quadrant TECHNIQUE: Real-time focused scanning was performed of the abdomen, with image documentation. COMPARISONS: None. FINDINGS: Liver measures 13 cm. Heterogeneous and increased echotexture. Main portal vein appears patent. Gallbladder is absent. CBD measures 1.5 cm. Pancreas is obscured. Right kidney measures 11 cm. IMPRESSION: Limited exam due to patient body habitus and bowel gas. Distended CBD measuring 1.5 cm. Patient is status post cholecystectomy. Correlate with LFTs and possi ble additional cross-sectional imaging if needed. Reviewed by: Binu Mcclendon MD on 03/20/2024 8:57 PM PDT Approved by: Binu Mcclendon MD on 03/20/2024 8:57 PM PDT Station ID: [id number]
[2024-03-20] MEDS ORDERED: iohexoL-300 100 ML VIAL ONE ×2 (21:15→21:34)
[2024-03-20] MEDS: iohexoL-300 100 ML VIAL IVP ONE (21:24)
--- NOTE | 2024-03-20 21:46 | CT Report ---
PROCEDURE: Angio Chest INDICATIONS: Pulmonary embolism CONTRAST: OMNI 300, 80mls TECHNIQUE: After the administration of intravenous contrast, 2 mm axial images were acquired from the pulmonary apices to the posterior costophrenic angles during the arterial phase. In addition, 1 mm lung kernel and 5 mm soft tissue kernel reconstructions were performed. 3-dimensional coronal oblique maximum int ensity projection (MIP) reformats, 8 mm axial MIP, and 5 mm coronal and sagittal MPR reformats were t hen performed through the thorax. For radiation dose reduction, the following was used: automated exp osure control, adjustment of mA and/or kV according to patient size. COMPARISON: Same-day radiograph FINDINGS: Image quality: Diagnostic Lungs and pleura:Basal scarring and atelectasis. No dense airspace disease. No pleural effusions. Low lung volumes. Mediastinum, heart, and esophagus: Coronary calcifications. No acute pulmonary embolism. Cardiomegaly. Moderate hiatal hernia. No pathologic lymph nodes by size criteria Chest wall and thyroid: Unremarkable, no axillary lymphadenopathy Upper abdomen: No gross abnormality on arterial phase. Bones: Degenerative changes. IMPRESSION: No acute pulmonary embolism. No significant airspace disease or pleural effusion. Reviewed by: Binu Mcclendon MD on 03/20/2024 9:45 PM PDT Approved by: Binu Mcclendon MD on 03/20/2024 9:45 PM PDT Station ID: [id number]
[2024-03-20] MEDS: HYDROmorphone 1 MG/ML CARPUJECT IVP STA (21:48)
[2024-03-20] MEDS: METOCLOPRAMIDE 10 MG/2 ML VIAL IVP STA (21:49)
[2024-03-20 22:28] LABS: ALBUMIN 3.6 g/dL (3.2-5.5); ALBUMIN/GLOBULIN RATIO 1.2 (1.0-2.2); BILIRUBIN,TOTAL 0.3 mg/dL (0.2-1.0); CREATININE 0.7 mg/dL (0.6-1.3); POTASSIUM 3.9 mmol/L (3.5-4.5); TOTAL PROTEIN 6.5 g/dL (6.4-8.9)
[2024-03-20 22:30] LABS: TROPONIN I HIGH SENSITIVITY 6.2 ng/L (2.3-14.8)
--- NOTE | 2024-03-20 22:41 | ED Physician Documentation ---
ED Addendum - Addendum Addendum: 03/20/24 22:41 Sign out at 10:35PM. This is a 74yo F w/h/o CAD who presented with chest pain. Reportedly, she has been seen for similar in the past frequently. She has had reassuring chest pain work up, including CTA chest, but had incidentally noted elevated LFTs which are being pursued. Trended troponins reassuring and patient is to be discharged per sign out with follow up of chest pain, if completion of LFT elevation work up is reassuring. Plan is to follow up repeat LFTs and CT A/P. Patient fully aware of and agrees with plan per sign out. -Repeat LFTs stable, reassuring. -Patient comfortable, understands plan. Awaiting CT A/P. 03/21/24 06:01 CT: report notes biliary dilation, without clear source. I am requesting GI consult to discuss whether urgent or outpatient MRCP is needed. LFTs stable and patient does not have RUQ tenderness or pain currently. She is comfortable. I spoke with Dr. Fleming of GI at [facility], reviewing case on phone. He recommends MRCP from ER. I discussed with patient who understands and agrees. On my exam, she does have RUQ tenderness, with negative Smith's sign. I am scheduling mIVF, dilaudid IV, and AM labs. RN working on her medication list. Patient stable, requesting Zofran. Ordered nighttime home medications. Repeat CBC with mild anemia, no leukocytosis or thrombocytopenia. Repeat chemistry with increase in AST to 88, ALT slight decreased to 129, alk phos decreased to 218, no bilirubin elevation. Creatinine stable. Patient remains stable, awaiting MRCP. Signing out at 0700 to morning physician with plan to monitor pt, complete MRCP. 03/21/24 06:42
--- NOTE | 2024-03-20 23:21 | CT Report ---
PROCEDURE: Abdomen/Pelvis WO INDICATIONS: right upper quadrant pain TECHNIQUE: A CT scan of the abdomen and pelvis was performed without the use of intravenous contrast. Images we re recorded and evaluated at appropriate window settings. Reformats: coronal and sagittal. For radiat ion dose reduction, the following was used: automated exposure control, adjustment of mA and/or kV ac cording to patient size. COMPARISON: Same-day ultrasound, 07/04/2023 CT FINDINGS: Image quality: Diagnostic Lower chest: Atelectasis/scarring at the lung bases. No drainable effusions. Moderate hiatal hernia. Coronary calcifications. Liver: Solid organs are not well evaluated IV contrast. No contour deforming mass Gallbladder and biliary system: Cholecystectomy clips. Dilated biliary system with CBD measuring 2 cm . Pancreas: Moderately atrophic, no ductal dilation Spleen: Nonenlarged Adrenals: No discrete nodules Kidneys: There is excretion of injected iodinated contrast, which can obscure urinary stones. Mild to moderate atrophy of the cortex. Vessels and lymph nodes: No abdominal aortic aneurysm. Atherosclerotic calcifications are present. No pathologic lymph nodes by size criteria. Bowel and peritoneum: No small bowel obstruction. There are colonic diverticula. The appendix is nond ilated Body wall: Small fat-containing ventral hernias. Pelvis: Obscured by metallic artifact. No significant abnormality. There is excreted contrast in the urinary bladder Bones: A right hip arthroplasty is present. Lumbosacral degenerative changes. Height loss of L1 is ne w compared to 2022. IMPRESSION: Cholecystectomy clips. Distended biliary system is present, measuring up to 2 cm at the CBD, consider correlation with LFTs and ERCP versus MRCP. Other findings above on this limited noncontrast study. Please note there is renal contrast excretion , which can obscure urinary stones. Reviewed by: Binu Mcclendon MD on 03/20/2024 11:20 PM PDT Approved by: Binu Mcclendon MD on 03/20/2024 11:20 PM PDT Station ID: [id number]
[2024-03-21] MEDS: SODIUM CHLORIDE 0.9% 1,000 ML IV STA (00:43)
[2024-03-21] MEDS: HYDROmorphone 0.5 MG/0.5 ML SYRINGE IVP SCH (00:44)
[2024-03-21] MEDS ORDERED: HYDROmorphone 1 MG/ML CARPUJECT IVP SCH (01:00)
[2024-03-21] MEDS: ONDANSETRON 4 MG/2 ML VIAL IVP STA (02:06)
[2024-03-21] MEDS ORDERED: tiZANidine 4 MG TABLET PO PRN (02:31)
[2024-03-21] MEDS: METOPROLOL TARTRATE 50 MG TABLET PO STA (02:49)
[2024-03-21] MEDS: MIRTAZAPINE 15 MG TABLET PO ONE (02:50)
[2024-03-21] MEDS: QUEtiapine 25 MG TABLET PO STA (02:50)
[2024-03-21] MEDS: diltiaZEM 30 MG TABLET PO STA (02:55)
[2024-03-21 05:58] LABS: BASOPHILS % (AUTO) 0.5 %; EOSINOPHILS # (AUTO) 0.1 10^3/uL (0.0-0.7); HCT - HEMATOCRIT 34.9 % (37.0-47.0); LYMPHOCYTES # (AUTO) 1.5 10^3/uL (1.5-3.5); LYMPHOCYTES % (AUTO) 25.9 %; MEAN CORPUSCULAR HEMOGLOBIN 30.7 pg (27.0-31.0); MEAN CORPUSCULAR HGB CONC 31.5 g/dL (32.0-36.0); MEAN CORPUSCULAR VOLUME 97.5 fL (81.0-99.0); MEAN PLATELET VOLUME 8.6 fL (7.9-10.8); MONOCYTES # (AUTO) 0.8 10^3/uL (0.0-1.0); MONOCYTES % (AUTO) 12.9 %; NEUTROPHILS # (AUTO) 3.5 10^3/uL (1.5-6.6); NEUTROPHILS % (AUTO) 58.4 %; PLT - PLATELET COUNT 227 10^3/uL (130-450); RED BLOOD COUNT 3.58 10^6/uL (4.20-5.40); RED CELL DISTRIBUTION WIDTH 12.9 % (12.0-15.0)
[2024-03-21 06:13] LABS: ALBUMIN 3.1 g/dL (3.2-5.5); ALBUMIN/GLOBULIN RATIO 1.3 (1.0-2.2); BILIRUBIN,TOTAL 0.3 mg/dL (0.2-1.0); CALCIUM 8.5 mg/dL (8.5-10.3); CREATININE 0.7 mg/dL (0.6-1.3); TOTAL PROTEIN 5.5 g/dL (6.4-8.9)
[2024-03-21] MEDS ORDERED: GADOTERATE MEGLUMINE 7.5 MMOL/15 ML VIAL ONE (07:23)
[2024-03-21] MEDS ORDERED: GADOTERATE MEGLUMINE 5 MMOL/10 ML VIAL ONE (07:23)
--- NOTE | 2024-03-21 08:27 | ED Physician Documentation ---
ED Addendum - Addendum Addendum: 03/21/24 08:25 The patient was resting but not sleeping. She said she felt okay at this time except for some mild headache. No abdominal pain. No nausea. She had received ketorolac last evening approximately 8 PM. I felt another dose was okay at this time. Her renal function is reasonable. She said she felt dry mouth. Pending MRCP this morning at some point. Will keep her intake minimal to just sips. I ordered lactated Ringer's at 500 mL/h for continued hydration. Abdomen is nontender at the moment. She had had chest pain as presentation last night. Her troponins were negative over several hours. EKG reportedly unremarkable. She did have some elevation of her ALT and AST and alk phos without any elevation of bilirubin. These were minimally elevated in the 1-200 range. However on imaging her common bile duct was dilated at 2 cm entheses status postcholecystectomy but still higher than expected). As such MRCP was decided as the next step. The patient has overnighted awaiting this and will fit her in this morning at some point.
[2024-03-21] MEDS: LACTATED RINGERS 1,000 ML IV STA (08:38)
[2024-03-21] MEDS: KETOROLAC 15 MG/ML VIAL IVP STA (08:38)
[2024-03-21] MEDS: HYDROmorphone 1 MG/ML CARPUJECT IVP STA (11:01)
[2024-03-21] MEDS: LORazepam 2 MG/ML VIAL IVP STA (11:07)
--- NOTE | 2024-03-21 12:40 | MRI Report ---
PROCEDURE: MRCP W/WO INDICATIONS: LFT elevation, biliary dilation on CT, RUQ pain CONTRAST: 21ML Clariscan TECHNIQUE: Coronal ultra fast SE through the abdomen, axial 2-D spoiled GE in- and [id number], and breath-hold T2 FSE with fat saturation through the biliary system and pancreas. Oblique coronal and axial thin- slice ultra fast SE, radial thick-slab ultra fast SE centered on the extrahepatic bile ducts. COMPARISON: 03/20/2024, 07/04/2023 FINDINGS: Image quality: Suboptimal due to motion artifact. Gallbladder: Surgically absent. Biliary tree: Dilated, measuring 16 mm. There is a flow void within the distal common bile duct. Shou ldering of the distal common bile duct wall (series 2, image 15). Pancreas: No pancreatic ductal dilation. Lung bases and heart: Unremarkable. Liver: No solid mass. Spleen: No splenomegaly. Adrenals: No adrenal nodule. Kidneys and ureters: No hydronephrosis. No renal cystic lesion which requires follow up. No solid mas s. Bowel and peritoneum: No bowel distension. No pathologic free fluid. Diverticulosis without evidence of diverticulitis. Lymph nodes: No central or retroperitoneal adenopathy. Vessels: No infrarenal aortic aneurysm. Bones: No aggressive osseous abnormality. Surgical fusion of L4-S1. Other: Left ovarian cystic lesion with thickened internal septations and questionable nodularity (ser ies 2, image 18). IMPRESSION: Suboptimal due to motion artifact. Intrahepatic and extrahepatic biliary dilation. Common bile duct measures 16 mm. No choledocholithias is. However, there is shouldering of the distal common bile duct, which may indicate a periductal cho langiocarcinoma. Consider ERCP with brushings. O-RADS 3 left ovarian lesion. Recommend gynecologic referral. Reviewed by: Steven Prince MD on 03/21/2024 12:39 PM PDT Approved by: Steven Prince MD on 03/21/2024 12:39 PM PDT Station ID: [id number]
[2024-03-21] MEDS: diphenhydrAMINE INJ 50 MG/ML VIAL IVP STA (12:47)
--- NOTE | 2024-03-21 13:37 | ED Physician Documentation ---
ED Addendum - Addendum Addendum: 03/21/24 13:34 MRCP imaging returned showing Intrahepatic and extrahepatic biliary dilation. Common bile duct measures 16 mm however no signs of choledocholithiasis there does appear to be a distal common bile duct which may indicate periductal cholangiocarcinoma with recommendations for ERCP with brushings. 1315: Discussed this case with Dr. Fleming who consulted on patient last night for MRCP to be performed. Given patient is still here in the emergency department she has no other acute causes for symptoms at this time and she is eating and drinking well here in the emergency department with pain under control he recommends outpatient urgent follow-up in 1 to 2 weeks. He will have his office call patient for follow-up. Patient is agreeable with this plan she is understandable of the findings and on the urgency for ERCP to be performed for biopsy. Patient instructed to return if she develops any abdominal pain any nausea or vomiting. Patient was instructed there is no GI clinic here and she is understandable she needs to follow-up in [facility].
[2024-03-21 13:50] VITALS: BP 153/80; O2SAT 95
[2024-03-21] MEDS: GADOTERATE MEGLUMINE 5 MMOL/10 ML VIAL IVP ONE (16:24)
[2024-03-21] MEDS: GADOTERATE MEGLUMINE 7.5 MMOL/15 ML VIAL IVP ONE (16:24)
== END 2024-03-21 14:01 | disposition home or self-care (01) ==
LOC: EDUNIT# → ED 18:23
DX: K83.8 Other specified diseases of biliary tract (principal); R74.01 Elevation of levels of liver transaminase levels; F41.9 Anxiety disorder, unspecified; R51.9 Headache, unspecified; N83.202 Unspecified ovarian cyst, left side; Z90.49 Acquired absence of other specified parts of digestive tract; Z86.718 Personal history of other venous thrombosis and embolism; Z79.01 Long term (current) use of anticoagulants
CPT/HCPCS: 36415; 71045; 71275; 74176; 74183; 76705; 80053; 83690; 83880; 84484; 85025; 85379; 93005; 96374; 96375; 96376; 99285; A9270; A9575; J1170; J1200; J2060; J2765; J7120; Q9967

== ENCOUNTER 2024-03-27 19:43 | Outpatient (CLI) | payer MEDICARE, OTHER | END 2024-03-27 23:59 | disposition critical access hospital (66) | LOC: EMS 19:43 | DX: R60.0 Localized edema (principal); R25.2 Cramp and spasm; R06.02 Shortness of breath; R10.12 Left upper quadrant pain; R11.0 Nausea | CPT/HCPCS: A0425; A0429 ==

== ENCOUNTER 2024-03-27 20:05 | Emergency (ER) | payer MEDICARE, OTHER ==
--- NOTE | 2024-03-27 20:35 | ED Physician Documentation ---
History of Present Illness - Stated complaint Stated Complaint: MULTIPLE COMPLAINTS - Chief complaint Chief Complaint: Ext Problem - Additonal information Additional information: Patient has past medical history remarkable for coronary artery disease esophageal spasm recent evaluation for concerns for right upper gallbladder mass. Patient was seen here on the for the symptoms diagnosed on MRCP with concerning mass in right upper quadrant. Given patient's findings she is scheduled for outpatient ERCP mid March for follow-up at [facility]. Patient presents to the emergency department with left lower quadrant pain and left lower leg swelling. She notes symptoms of left lower leg swelling have been going on for the past few days. No redness warmth to the leg. She notes symptoms have been worsening with the swelling. She is not on any blood thinners at baseline. No history of DVTs but patient does have past medical history of PEs. She is currently not on any blood thinners. She notes pain to her posterior calf and left leg. She denies any trauma to the area. Patient also reporting left lower quadrant pain. She notes symptoms started this morning. She notes pain in left upper and left lower quadrant. She notes she has past medical history of diverticulitis and symptoms do feel similar. She denies any nausea vomiting fevers she denies any urinary symptoms or changes in stool today. PD PAST MEDICAL HISTORY - Past Medical History Cardiovascular: Hypertension, High cholesterol, Coronary artery disease, Angina, [place] Respiratory: None Neuro: None Endocrine/Autoimmune: None GI: None, GERD, Hiatal hernia : None HEENT: None Psych: Depression Musculoskeletal: Osteoarthritis, Osteoporosis Derm: None - Past Surgical History Past Surgical History: Yes General: Hiatal hernia repair Ortho: Knee replacement Cardiovascular: Coronary stent HEENT: Cataracts, Tonsil/Adenoidectomy - Present Medications Home Medications: Ambulatory Orders Medication Instructions Recorded Confirmed Ascorbic Acid [Acerola C] 500 mg PO DAILY 12/18/12 03/27/24 Cholecalciferol (Vitamin D3) 3,000 unit PO DAILY 12/18/12 03/27/24 [Vitamin D] Clopidogrel [Plavix] 75 mg PO DAILY 12/18/12 03/27/24 Duloxetine HCl [Cymbalta] 60 mg PO DAILY 12/18/12 03/27/24 Multivitamin [Multivitamins] 1 each PO DAILY 12/18/12 03/27/24 Rosuvastatin Calcium [Crestor] 40 mg PO DAILY 12/18/12 03/27/24 Acetaminophen 1,000 mg PO Q8HR PRN 09/11/15 03/27/24 Divalproex [Depkristina Ovalles] 750 mg ORAL DAILY PM 03/08/23 03/27/24 Ondansetron Odt [Zofran] 4 mg TL Q6H PRN #10 tablet 07/04/23 03/27/24 Docusate Sodium [Dok] 100 mg PO BID 07/13/23 03/27/24 Lisinopril [Zestril] 10 mg PO DAILY 07/13/23 03/27/24 Metoprolol Tartrate [Lopressor] 100 mg PO BID 07/13/23 03/27/24 Topiramate 50 mg PO BID 07/13/23 03/27/24 hydroCHLOROthiazide [Hydrodiuril] 25 mg PO DAILY 07/13/23 03/27/24 polyethylene glycoL 3350 [Miralax] 17 g PO DAILY PRN 07/13/23 03/27/24 Nitroglycerin [Nitrostat] 0.4 mg SL Q5MIN PRN #1 tab 11/23/23 03/27/24 oxyCODONE [Roxicodone] PO BID PRN 03/27/24 - Allergies Allergies/Adverse Reactions: Allergies Allergy/AdvReac Type Severity Reaction Status Date / Time desvenlafaxine Allergy Mild Headache Verified 03/20/24 19:00 [Desvenlafaxine] phenobarbital Allergy Mild depression Verified 03/20/24 19:00 desvenlafaxine succinate * Allergy Unknown Unknown Verified 03/20/24 19:00 [From Pristiq] bupropion HCl * Allergy Headache Verified 03/20/24 19:00 [From Wellbutrin] ibuprofen Allergy Unknown Verified 03/20/24 19:00 lidocaine Allergy Unknown Verified 03/20/24 19:00 morphine Allergy Anaphylaxis Verified 03/27/24 20:16 propoxyphene HCl * Allergy Headache Verified 03/20/24 19:00 [From Darvon] adhesive tape AdvReac Rash Verified 03/20/24 19:00 aripiprazole [From Abilify] AdvReac tremors Verified 03/20/24 19:00 citalopram AdvReac Headache Verified 03/20/24 19:00 indomethacin AdvReac unknown Verified 03/20/24 19:00 tramadol AdvReac Itching Verified 03/27/24 20:17 - Social History Does the pt smoke?: No Smoking Status: Never smoker Does the pt drink ETOH?: Yes Does the pt have substance abuse?: No - Immunizations Immunizations are current?: Yes - POLST Patient has POLST: Yes POLST Status: Full Code PD ED PE NORMAL - Vitals Vital signs reviewed: Yes - General General: Alert and oriented X 3 - HEENT HEENT: Atraumatic - Cardiac Cardiac: RRR, No murmur, No gallop, No rub, Strong equal pulses - Respiratory Respiratory: No respiratory distress, Clear bilaterally - Abdomen Abdomen: Normal bowel sounds, Soft, Other (Reproducible tenderness to left lower quadrant without rebound or guarding. Active bowel sounds on auscultation. No right lower quadrant tenderness no epigastric or right upper quadrant tenderness.) - Back Back: No CVA TTP - Neuro Neuro: Alert and oriented X 3 Eye Opening: Spontaneous Motor: Obeys Commands Verbal: Oriented GCS Score: 15 Results - Vitals Vitals: Vital Signs - 24 hr 03/27/24 03/27/24 20:11 21:10 Temperature 36.6 C Heart Rate 59 L 61 Respiratory 18 18 Rate Blood Pressure 133/71 H 138/73 H O2 Saturation 95 97 Oxygen O2 Source Room air - Labs Labs: Laboratory Tests 03/27/24 03/27/24 21:10 21:10 WBC 5.6 RBC 3.97 L Hgb 12.4 Hct 38.0 MCV 95.7 MCH 31.2 H MCHC 32.6 RDW 12.4 Plt Count 279 MPV 8.6 Neut # (Auto) 3.2 Lymph # (Auto) 1.6 [place] # (Auto) 0.6 Eos # (Auto) 0.1 Baso # (Auto) 0.0 Absolute Nucleated RBC 0.00 Nucleated RBC % 0.0 Sodium 140 Potassium 3.5 Chloride 101 Carbon Dioxide 32 Anion Gap 7.0 BUN 17 Creatinine 0.7 Estimated GFR (MDRD) 82 L Glucose 104 Calcium 9.2 Magnesium 1.6 L Total Bilirubin 0.3 AST 23 ALT 46 Alkaline Phosphatase 192 H Total Protein 6.8 Albumin 3.7 Globulin 3.1 Albumin/Globulin Ratio 1.2 Lipase < 10 L PD Medical Decision Making - ED course Complexity details: reviewed old records, reviewed results ED course: Patient is a 74-year-old female with past medical history of coronary artery disease. Patient presents to the emergency department with left lower leg swelling and posterior calf pain with left lower abdominal pain as well. Left lower calf pain has been going on for 4 days and she notes mild swelling to her left leg. She notes today she developed left lower quadrant pain without nausea vomiting fevers urinary symptoms or changes in bowel movement. Patient took an oxycodone for her pain earlier today that she received from her PCP. Patient is currently being worked up for concerning mass on MRCP and right upper quadrant. Patient is being seen for this in the outpatient setting with ERCP. Vital stable on arrival. Normal cardiac and lung sounds on auscultation. Reproducible left lower quadrant tenderness without CVA tenderness. Abdomen is soft without rebound or guarding. Labs here in the emergency department show no significant leukocytosis. Patient has no elevation in lipase. No signs of anemia concerning for GI bleed. No significant MARYANNE or electrolyte abnormality. LFTs appear to have returned to baseline as well. Patient pending CT scan and chest x-ray at this time. Additionally ultrasound of left leg pending given swelling to left leg.Magnesium 1.6 here in emergency department will replace orally here in emergency department and patient requesting Benadryl for generalized pruritus she did not receive any medications other than IV Benadryl here in emergency department. Patient taken over by Dr. Quiles pending work-up. Departure - Departure Clinical Impression: Left leg swelling, Left sided abdominal pain Forms: PCP List
[2024-03-27] MEDS ORDERED: iohexoL-300 100 ML VIAL ONE (21:11)
[2024-03-27 21:14] LABS: BASOPHILS % (AUTO) 0.7 %; EOSINOPHILS # (AUTO) 0.1 10^3/uL (0.0-0.7); HGB - HEMOGLOBIN 12.4 g/dL (12.0-16.0); LYMPHOCYTES # (AUTO) 1.6 10^3/uL (1.5-3.5); LYMPHOCYTES % (AUTO) 28.9 %; MEAN CORPUSCULAR HEMOGLOBIN 31.2 pg (27.0-31.0); MEAN CORPUSCULAR HGB CONC 32.6 g/dL (32.0-36.0); MEAN CORPUSCULAR VOLUME 95.7 fL (81.0-99.0); MEAN PLATELET VOLUME 8.6 fL (7.9-10.8); MONOCYTES # (AUTO) 0.6 10^3/uL (0.0-1.0); MONOCYTES % (AUTO) 10.8 %; NEUTROPHILS # (AUTO) 3.2 10^3/uL (1.5-6.6); NEUTROPHILS % (AUTO) 57.4 %; PLT - PLATELET COUNT 279 10^3/uL (130-450); RED BLOOD COUNT 3.97 10^6/uL (4.20-5.40); RED CELL DISTRIBUTION WIDTH 12.4 % (12.0-15.0); WHITE BLOOD COUNT 5.6 x10^3/uL (4.8-10.8)
[2024-03-27 21:28] LABS: ALBUMIN 3.7 g/dL (3.2-5.5); ALBUMIN/GLOBULIN RATIO 1.2 (1.0-2.2); ALKALINE PHOSPHATASE 192 IU/L (42-121); ALT ALANINE AMINOTRANSFERASE 46 IU/L (10-60); AST ASPARTATE AMINOTRANSFERASE 23 IU/L (10-42); BILIRUBIN,TOTAL 0.3 mg/dL (0.2-1.0); BUN - BLOOD UREA NITROGEN 17 mg/dL (6-20); CALCIUM 9.2 mg/dL (8.5-10.3); CARBON DIOXIDE - CO2 32 mmol/L (21-32); CHLORIDE 101 mmol/L (101-111); CREATININE 0.7 mg/dL (0.6-1.3); GFR - MDRD 82 (>89); GLUCOSE 104 mg/dL (74-104); MAGNESIUM 1.6 mg/dL (1.7-2.3); POTASSIUM 3.5 mmol/L (3.5-4.5); SODIUM 140 mmol/L (135-145); TOTAL PROTEIN 6.8 g/dL (6.4-8.9)
[2024-03-27 21:34] LABS: LIPASE < 10 U/L (11-82)
[2024-03-27] MEDS: iohexoL-300 100 ML VIAL IVP ONE (21:40)
[2024-03-27] MEDS: diphenhydrAMINE INJ 50 MG/ML VIAL IVP STA (21:50)
[2024-03-27 22:59] VITALS: O2SAT 98
--- NOTE | 2024-03-27 23:15 | CT Report ---
PROCEDURE: Abdomen/Pelvis W INDICATIONS: left lower quadrant pain CONTRAST: OMNI 300, 100mls TECHNIQUE: After the administration of intravenous contrast, a CT scan of the abdomen and pelvis was performed. Images were recorded and evaluated at appropriate window settings. Reformats: coronal and sagittal. F or radiation dose reduction, the following was used: automated exposure control, adjustment of mA and /or kV according to patient size. COMPARISON: 03/20/2024 FINDINGS: Image quality: Diagnostic. Lower chest: Moderate-sized hiatal hernia. Partially imaged coronary artery calcification. Liver: No solid mass. Gallbladder: Surgically absent. Biliary tree: Nondilated intra and extrahepatic bile ducts, over expected for cholecystectomy state. Spleen: No splenomegaly. Pancreas: No pancreatic ductal dilation. Adrenals: No adrenal nodule. Kidneys and ureters: Symmetric enhancement. No hydronephrosis or nephrolithiasis. No solid mass or cy st requiring follow-up. No hydroureter. Stomach, bowel and peritoneum: There is diverticular disease in the descending and sigmoid colon. Mil d long segment sigmoid colon wall thickening without significant pericolonic inflammation. Normal deandra endix. There is the colon and small bowel appear normal. No pathologic free fluid. Lymph nodes: No central or retroperitoneal adenopathy. Vessels: Normal caliber abdominal aorta, IVC, and portal vein. Patent portal vein. PELVIS Reproductive organs: The uterus is present, age-appropriate. A small left adnexal cyst. The right ova ry is not well seen. Bladder: Normal given metallic artifact. Pelvic lymph nodes: No pelvic adenopathy by size criteria. Bones: Multilevel disc and endplate degeneration. Surgical changes in the lumbosacral spine. Chronic superior endplate compression of L1. Other: Mild pelvic floor laxity. IMPRESSION: Wall thickening of the sigmoid colon. In the setting of diverticulosis, early or very mild diverticul itis may be present. This has not significantly changed compared to the prior exam and may be a chron ic appearance. Intra and extrahepatic biliary dilatation as before. This has been previously evaluated by MRCP. Stable appearance of small left adnexal cyst. Reviewed by: Mariah Garcia MD on 03/27/2024 11:14 PM PDT Approved by: Mariah Garcia MD on 03/27/2024 11:14 PM PDT Station ID: [id number]
--- NOTE | 2024-03-27 23:15 | XRAY Report ---
PROCEDURE: Chest 1V INDICATIONS: sob TECHNIQUE: One view of the chest was acquired. COMPARISON: None. FINDINGS: Surgical changes and devices: None. Lungs and pleura: No pleural effusions or pneumothorax. Lungs are clear. Mediastinum: Moderate cardiomegaly. Normal mediastinal contour. Bones and chest wall: No suspicious bony lesions. Overlying soft tissues appear unremarkable. IMPRESSION: No acute cardiopulmonary process. Reviewed by: Mariah Garcia MD on 03/27/2024 11:14 PM PDT Approved by: Mariah Garcia MD on 03/27/2024 11:14 PM PDT Station ID: [id number]
--- NOTE | 2024-03-27 23:58 | Ultrasound Report ---
PROCEDURE: Duplex Ext Veins Left INDICATIONS: left leg swelling TECHNIQUE: Real-time imaging, as well as color and pulse Doppler interrogation, were performed of the lower extr emity deep veins from the inguinal ligament to the popliteal fossa. Attempted visualization of the ca lf veins was performed. COMPARISON: None. FINDINGS: The deep veins are normally compressible, and free of intraluminal thrombus. Color and pu lse Doppler demonstrate normal phasic intraluminal flow. There is normal augmentation response to di stal compression maneuver. Along the anterior knee, there is a small soft tissue fluid collection measuring 2.3 x 0.9 x 2.6 cm, uncertain in anatomic location. No internal or peripheral vascularity. IMPRESSION: No DVT in the left lower extremity. Nonspecific anterior soft tissue fluid collection. This may be a hematoma or seroma. Preliminary results given by the cryptographic center specialist to the ordering provider immediately following the study . Reviewed by: Mariah Garcia MD on 03/27/2024 11:57 PM PDT Approved by: Mariah Garcia MD on 03/27/2024 11:57 PM PDT Station ID: [id number]
[2024-03-28] MEDS: HYDROmorphone 1 MG/ML CARPUJECT IVP STA (00:46)
[2024-03-28 01:02] VITALS: BP 132/61
[2024-03-28] MEDS ORDERED: MAGNESIUM OXIDE 400 MG TABLET PO SCH (08:00)
--- NOTE | 2024-03-28 08:50 | ED Physician Documentation ---
ED Addendum - Addendum Addendum: 03/28/24 08:53 I received signout/turnover of care on this patient from OSEI Soares; please see her note for complete H&P. At the time of turnover of care, chest x-ray and CT A/P results are pending. Subsequently, the chest x-ray is undertaken and no acute cardiopulmonary abnormality on this study. The CT A/P is interpreted by the radiologist as "wall thickening of the sigmoid colon. In the setting of diverticulosis, early or very mild diverticulitis may be present. This is not significantly changed compared to the prior exam and may be a chronic appearance. Intra and extrahepatic biliary dilatation as before. This has been previously evaluated by MRCP. Stable appearance of small left adnexal cyst." I discussed these results with the patient. We discussed option for treatment with antibiotics of the wall thickening of the sigmoid colon for possible early diverticulitis. The patient declines this which would be consistent with the current literature's recommendations (against routine use of antibiotics for mild diverticulitis in the outpatient setting). Given her unremarkable blood test results (specifically normal white blood cell count), this would further support no antibiotics at this time. The patient is requesting something for pain and she is given 1 mg IV Dilaudid with patient reporting good analgesia on reevaluation. I also informed her of the results of the left lower extremity ultrasound (no DVT). She indicates she is comfortable with discharge at this time. Return precautions are reviewed.
== END 2024-03-28 00:59 | disposition home or self-care (01) ==
LOC: EDUNIT# → ED 20:05
DX: R10.32 Left lower quadrant pain (principal); M79.89 Other specified soft tissue disorders; M79.662 Pain in left lower leg; R93.5 Abnormal findings on diagnostic imaging of other abdominal regions, including retroperitoneum; R19.01 Right upper quadrant abdominal swelling, mass and lump; L29.8 Other pruritus; N83.202 Unspecified ovarian cyst, left side; I25.10 Atherosclerotic heart disease of native coronary artery without angina pectoris; E78.00 Pure hypercholesterolemia, unspecified; K21.9 Gastro-esophageal reflux disease without esophagitis; I25.2 Old myocardial infarction; Z79.899 Other long term (current) drug therapy; Z79.02 Long term (current) use of antithrombotics/antiplatelets; Z95.5 Presence of coronary angioplasty implant and graft
CPT/HCPCS: 36415; 71045; 74177; 80053; 83690; 83735; 84484; 85025; 93005; 93971; 96374; 96375; 99283; J1170; J1200; Q9967

== ENCOUNTER 2024-03-31 15:00 | Outpatient (CLI) | payer MEDICARE, OTHER | END 2024-03-31 23:59 | disposition critical access hospital (66) | LOC: EMS 15:00 | DX: R10.11 Right upper quadrant pain (principal); R11.2 Nausea with vomiting, unspecified; R11.0 Nausea | CPT/HCPCS: A0425; A0427 ==

== ENCOUNTER 2024-03-31 15:22 | Emergency (ER) | payer MEDICARE, OTHER ==
--- NOTE | 2024-03-31 15:52 | ED Physician Documentation ---
PD HPI ABD PAIN - Stated complaint Stated Complaint: ABD PX - Chief complaint Chief Complaint: Abd Pain - History obtained from History obtained from: Patient, EMS - History of Present Illness Timing - onset: Yesterday (has had pain upper abd for months, with US, EGD, labs, and several meds. Shown to have gastritis/reflux on EGD, on now Omeprazole and Sucralfate. Avoiding NSAIDs. using tylenol but had been told to less use due to bile duct process. Had MRCP recently with Dx of mass at bile duct, with ERCP 04/11/24.) Timing - details: Waxing and waning Quality: Cramping, Aching, Pain Worsened by: Eating Associated symptoms: Nausea. No: Fever, Vomiting, Melena Recently seen: Clinic (with referral to GI and has ERCP scheduled at [facility] on 04/11[facility] Emergency Dept (4 days ago with similar. Seen by PCP in clinic and given oxycodone that did help the pain but Rx was only for 6 tablets, so lasted just 2-3 days.) Review of Systems Constitutional: denies: Fever, Chills PD PAST MEDICAL HISTORY - Past Medical History Past Medical History: Yes Cardiovascular: Hypertension, High cholesterol, Coronary artery disease, Angina, [place] Respiratory: None Neuro: None Endocrine/Autoimmune: None GI: None, GERD, Hiatal hernia : None HEENT: None Psych: Depression Musculoskeletal: Osteoarthritis, Osteoporosis Derm: None - Past Surgical History Past Surgical History: Yes General: Hiatal hernia repair Ortho: Knee replacement Cardiovascular: Coronary stent HEENT: Cataracts, Tonsil/Adenoidectomy - Present Medications Home Medications: Ambulatory Orders Medication Instructions Recorded Confirmed Cholecalciferol (Vitamin D3) 5,000 unit PO DAILY 12/18/12 03/31/24 [Vitamin D] Multivitamin [Multivitamins] 1 each PO DAILY 12/18/12 03/31/24 Ondansetron Odt [Zofran] 4 mg TL Q6H PRN #10 tablet 07/04/23 03/31/24 Lisinopril [Zestril] 10 mg PO DAILY 07/13/23 03/31/24 Metoprolol Tartrate [Lopressor] 100 mg PO BID 07/13/23 03/31/24 Nitroglycerin [Nitrostat] 0.4 mg SL Q5MIN PRN #1 tab 11/23/23 03/31/24 Ascorbic Acid [Vitamin C] 2,000 mg ORAL DAILY 03/31/24 03/31/24 Atorvastatin Calcium [Lipitor] 80 mg PO DAILY PM 03/31/24 03/31/24 B Complex W-C No.20/Folic Acid 1 mg PO DAILY 03/31/24 03/31/24 [Wescaps Capsule] Biotin 2,500 mcg PO DAILY 03/31/24 03/31/24 Cetirizine [ZyrTEC] 10 mg PO BID #20 tablet 03/31/24 Docusate Sodium 100Mg Capsule 100 mg PO DAILY #20 cap 03/31/24 [Colace 100Mg Capsule] Elderberry Fruit [Elderberry] 350 mg PO DAILY 03/31/24 03/31/24 Furosemide [Lasix] 20 mg PO DAILY 03/31/24 03/31/24 Isosorbide Mononitrate [Isosorbide 30 mg PO DAILY 03/31/24 03/31/24 Mononitrate ER] Magnesium Glycinate 200 mg PO DAILY 03/31/24 03/31/24 Mirtazapine 45 mg PO HS 03/31/24 03/31/24 Pantoprazole Sodium 20 mg PO DAILY 03/31/24 03/31/24 Quetiapine Fumarate [Seroquel] 50 mg PO HS 03/31/24 03/31/24 Simethicone [Gas Relief] 180 mg ORAL DAILY PRN 03/31/24 03/31/24 Sucralfate [Carafate] 1 gm PO QID 03/31/24 03/31/24 Tizanidine HCl 2 mg PO Q8HR PRN 03/31/24 03/31/24 Ubidecarenone [Co Q-10] 100 mg PO DAILY 03/31/24 03/31/24 dilTIAZem HCL [Diltiazem HCl] 60 mg ORAL Q6HR PRN 03/31/24 03/31/24 diltiaZEM [Cardizem] 30 mg PO DAILY PM 03/31/24 03/31/24 oxyCODONE [Roxicodone] 5 mg PO Q8H PRN #20 tablet 03/31/24 Hyoscyamine [Levsin] 0.125 mg SL BID #20 tablet 04/01/24 - Allergies Allergies/Adverse Reactions: Allergies Allergy/AdvReac Type Severity Reaction Status Date / Time desvenlafaxine Allergy Mild Headache Verified 03/31/24 15:26 [Desvenlafaxine] phenobarbital Allergy Mild depression Verified 03/31/24 15:26 desvenlafaxine succinate * Allergy Unknown Unknown Verified 03/31/24 15:26 [From Pristiq] bupropion HCl * Allergy Headache Verified 03/31/24 15:26 [From Wellbutrin] ibuprofen Allergy Unknown Verified 03/31/24 15:26 lidocaine Allergy Unknown Verified 03/31/24 15:26 morphine Allergy Anaphylaxis Verified 03/31/24 15:26 propoxyphene HCl * Allergy Headache Verified 03/31/24 15:26 [From Darvon] adhesive tape AdvReac Rash Verified 03/31/24 15:26 aripiprazole [From Abilify] AdvReac tremors Verified 03/31/24 15:26 citalopram AdvReac Headache Verified 03/31/24 15:26 indomethacin AdvReac unknown Verified 03/31/24 15:26 tramadol AdvReac Itching Verified 03/31/24 15:26 - Social History Does the pt smoke?: No Smoking Status: Never smoker Does the pt drink ETOH?: Yes Does the pt have substance abuse?: No - Immunizations Immunizations are current?: Yes - POLST Patient has POLST: Yes POLST Status: Full Code PD ED PE NORMAL - Vitals Vital signs reviewed: Yes - General General: Alert and oriented X 3, Well developed/nourished - Cardiac Cardiac: RRR, No murmur - Respiratory Respiratory: No respiratory distress, Clear bilaterally - Abdomen Abdomen: Normal bowel sounds, Soft, Non distended, Other (tender inepigastric and some to LUQ arera iwthout guarding nor percussion tenderness. Some pain to left flank with palpation of abd. No rash nor sores seen and not tender to light skin touch.) - Derm Derm: Normal color, Warm and dry - Extremities Extremities: Normal ROM s pain, No calf tenderness / cord, Other (mild edema in lower legs, right n=more than left. ) Results - Vitals Vitals: Vital Signs - 24 hr 03/31/24 03/31/24 03/31/24 15:27 16:02 18:02 Temperature 36.8 C 36.8 C Heart Rate 75 67 75 Respiratory 18 18 16 Rate Blood Pressure 142/92 H 104/52 L 123/65 O2 Saturation 97 94 94 Oxygen O2 Source Room air - Labs Labs: Laboratory Tests 03/31/24 03/31/24 03/31/24 16:04 16:05 16:05 WBC 4.9 RBC 3.83 L Hgb 11.6 L Hct 36.9 L MCV 96.3 MCH 30.3 MCHC 31.4 L RDW 12.6 Plt Count 271 MPV 8.7 Neut # (Auto) 3.0 Lymph # (Auto) 1.2 L [place] # (Auto) 0.6 Eos # (Auto) 0.1 Baso # (Auto) 0.0 Absolute Nucleated RBC 0.00 Nucleated RBC % 0.0 Sodium 138 Potassium 3.2 L Chloride 102 Carbon Dioxide 32 Anion Gap 4.0 L BUN 22 H Creatinine 0.7 Estimated GFR (MDRD) 82 L Glucose 121 H Calcium 8.9 Total Bilirubin 0.3 AST 33 ALT 56 Alkaline Phosphatase 242 H Troponin I High Sens 5.3 Total Protein 6.3 L Albumin 3.7 Globulin 2.6 Albumin/Globulin Ratio 1.4 Lipase 10 L PD Medical Decision Making - ED course Complexity details: reviewed results (LFTs and lipase are still good. Minimal elevation of Alk Phos and is at same level as recent testing. Consider some element of constipation but she states still stool output despite recent pain meds ), re-evaluated patient (improved pain with meds Fentanyl here. She states she had only gotten 6 tabets, verified on [place] script fill review. Had also gotten Rx for intestinal spasms.), considered differential (known process with dilated CBD and due to get ERCP in 11 days. Imaging unlikely to be useful as not peritoneal signs on exam and likely processes such as biliary colic, gastritis, etc not likely to show discrnably on CT. ), d/w patient Departure - Departure Disposition: 01 Home, Self Care Clinical Impression: Upper abdominal pain Condition: Stable Record reviewed to determine appropriate education?: Yes Follow-Up: Liz Lazo PA [Primary Care Provider] - Prescriptions: Docusate Sodium 100Mg Capsule [Colace 100Mg Capsule] 100 mg PO DAILY #20 cap Hyoscyamine [Levsin] 0.125 mg SL BID #20 tablet oxyCODONE [Roxicodone] 5 mg PO Q8H PRN #20 tablet PRN Reason: Pain Cetirizine [ZyrTEC] 10 mg PO BID #20 tablet Comments: Your pancreas and liver enzymes are mostly normal with some elevation of the alkaline phosphatase. Currently is about at the same level as it has been on recent blood test. Given the location of your pain, I would consider whether it is coming from the bile duct inflammation or whether there be an element of gastritis of the stomach or even some of the intestinal area hurting. Stay well-hydrated. [place] food. Continue with your omeprazole twice daily and the sacral fate that you have been taking. This would help with the stomach. T o that you could add lidocaine in conjunction with the antacid such as Maalox or Mylanta periodically. You were given some of that here. Add docusate stool softener twice daily for the next several days and then once daily after that in case there is some element of built-up stool causing some of the discomfort. Regarding pain otherwise, the oxycodone had been helping you on a recent prescription. I wrote a prescription for more of that to 3 times a day if needed for pain. I also wrote for cetirizine antihistamine to use twice daily for the next 10 days to try to reduce any itching as he might get from the pain medicines. You can add Benadryl if needed. I sent your prescriptions to your preferred pharmacy. Return to the ER if needed for worsening symptoms or follow-up with your primary care. I had the oxycodone if needed. Follow-up with the gastroenterology ERCP planned for the . I am prescribing a short course of narcotic pain medication for you. These are potentially dangerous and addictive medications that should be used carefully. These medications may constipate you. Take an [id number] stool softener such as docusate twice daily with plenty of water while taking these medications. If you go 24 hours without a bowel movement, take [id number] MiraLAX, per package instructions. Do not drink or drive while taking these medications. If you received narcotic or sedating medications while in the emergency department do not drive for 24 hours. Store this medication in a safe, secure place and out of reach of children. It is a violation of federal law to give or sell this medication to another person or to use in a manner other than prescribed. The ED will not refill narcotic prescriptions, including prescriptions lost or stolen. You can dispose of unwanted medications at the [facility] office or at several pharmacies such as [facility]. Forms: PCP List Discharge Date/Time: 03/31/24 18:45
[2024-03-31] MEDS: KETOROLAC 15 MG/ML VIAL IVP STA (16:08)
[2024-03-31 16:09] LABS: BASOPHILS % (AUTO) 0.4 %; EOSINOPHILS # (AUTO) 0.1 10^3/uL (0.0-0.7); EOSINOPHILS % (AUTO) 1.8 %; HCT - HEMATOCRIT 36.9 % (37.0-47.0); HGB - HEMOGLOBIN 11.6 g/dL (12.0-16.0); LYMPHOCYTES # (AUTO) 1.2 10^3/uL (1.5-3.5); LYMPHOCYTES % (AUTO) 23.8 %; MEAN CORPUSCULAR HEMOGLOBIN 30.3 pg (27.0-31.0); MEAN CORPUSCULAR HGB CONC 31.4 g/dL (32.0-36.0); MEAN CORPUSCULAR VOLUME 96.3 fL (81.0-99.0); MEAN PLATELET VOLUME 8.7 fL (7.9-10.8); MONOCYTES # (AUTO) 0.6 10^3/uL (0.0-1.0); NEUTROPHILS % (AUTO) 61.8 %; PLT - PLATELET COUNT 271 10^3/uL (130-450); RED BLOOD COUNT 3.83 10^6/uL (4.20-5.40); RED CELL DISTRIBUTION WIDTH 12.6 % (12.0-15.0); WHITE BLOOD COUNT 4.9 x10^3/uL (4.8-10.8)
[2024-03-31] MEDS: fentaNYL 100 MCG/2 ML VIAL IVP STA ×2 (16:09→18:21)
[2024-03-31] MEDS: diphenhydrAMINE INJ 50 MG/ML VIAL IVP STA (16:09)
[2024-03-31] MEDS: MAG HYDROX/AL HYDROX/SIMETH 30 ML UDC PO STA (16:10)
[2024-03-31] MEDS: LIDOCAINE VISCOUS 2% 15 ML UDC MM STA (16:10)
[2024-03-31 16:23] VITALS: O2SAT 94
[2024-03-31 16:26] LABS: ALBUMIN 3.7 g/dL (3.2-5.5); ALBUMIN/GLOBULIN RATIO 1.4 (1.0-2.2); BILIRUBIN,TOTAL 0.3 mg/dL (0.2-1.0); CALCIUM 8.9 mg/dL (8.5-10.3); CREATININE 0.7 mg/dL (0.6-1.3); POTASSIUM 3.2 mmol/L (3.5-4.5); TOTAL PROTEIN 6.3 g/dL (6.4-8.9)
[2024-03-31 18:11] VITALS: BP 123/65
[2024-03-31] MEDS: oxyCODONE/ACET 5/325 Prepack 4 PO STA (18:19)
[2024-03-31] MEDS: DOCUSATE SODIUM 100 MG CAPSULE PO STA (18:21)
== END 2024-03-31 18:45 | disposition home or self-care (01) ==
LOC: EDUNIT# → ED 15:22
DX: R10.10 Upper abdominal pain, unspecified (principal); K21.9 Gastro-esophageal reflux disease without esophagitis; I10 Essential (primary) hypertension; E78.00 Pure hypercholesterolemia, unspecified; I25.10 Atherosclerotic heart disease of native coronary artery without angina pectoris; F32.A Depression, unspecified
CPT/HCPCS: 36415; 80053; 83690; 84484; 85025; 96374; 96375; 99284; A9270; J1200

== ENCOUNTER 2024-04-15 16:03 | Emergency (ER) | payer MEDICARE, OTHER ==
[2024-04-15 16:24] VITALS: BP 147/81; O2SAT 97
--- NOTE | 2024-04-15 16:29 | ED Physician Documentation ---
PD HPI WOUND RECHECK - Stated complaint Stated Complaint: RT FOOT INJ - Chief complaint Chief Complaint: Wound - Histroy obtained from History obtained from: Patient - Additional information Additional information: She stepped on a sewing needle at home not through her shoe just prior to arrival and is not up-to-date on tetanus. It came out whole and she is confident there is no retained foreign body. PD PAST MEDICAL HISTORY - Past Medical History Past Medical History: Yes Cardiovascular: Hypertension, High cholesterol, Coronary artery disease, Angina, [place] Respiratory: None Neuro: None Endocrine/Autoimmune: None GI: None, GERD, Hiatal hernia : None HEENT: None Psych: Depression Musculoskeletal: Osteoarthritis, Osteoporosis Derm: None - Past Surgical History Past Surgical History: Yes General: Hiatal hernia repair, Other Ortho: Knee replacement Cardiovascular: Coronary stent HEENT: Cataracts, Tonsil/Adenoidectomy - Present Medications Home Medications: Ambulatory Orders Medication Instructions Recorded Confirmed Cholecalciferol (Vitamin D3) 5,000 unit PO DAILY 12/18/12 03/31/24 [Vitamin D] Multivitamin [Multivitamins] 1 each PO DAILY 12/18/12 03/31/24 Ondansetron Odt [Zofran] 4 mg TL Q6H PRN #10 tablet 07/04/23 03/31/24 Lisinopril [Zestril] 10 mg PO DAILY 07/13/23 03/31/24 Metoprolol Tartrate [Lopressor] 100 mg PO BID 07/13/23 03/31/24 Nitroglycerin [Nitrostat] 0.4 mg SL Q5MIN PRN #1 tab 11/23/23 03/31/24 Ascorbic Acid [Vitamin C] 2,000 mg ORAL DAILY 03/31/24 03/31/24 Atorvastatin Calcium [Lipitor] 80 mg PO DAILY PM 03/31/24 03/31/24 B Complex W-C No.20/Folic Acid 1 mg PO DAILY 03/31/24 03/31/24 [Wescaps Capsule] Biotin 2,500 mcg PO DAILY 03/31/24 03/31/24 Cetirizine [ZyrTEC] 10 mg PO BID #20 tablet 03/31/24 Docusate Sodium 100Mg Capsule 100 mg PO DAILY #20 cap 03/31/24 [Colace 100Mg Capsule] Elderberry Fruit [Elderberry] 350 mg PO DAILY 03/31/24 03/31/24 Furosemide [Lasix] 20 mg PO DAILY 03/31/24 03/31/24 Isosorbide Mononitrate [Isosorbide 30 mg PO DAILY 03/31/24 03/31/24 Mononitrate ER] Magnesium Glycinate 200 mg PO DAILY 03/31/24 03/31/24 Mirtazapine 45 mg PO HS 03/31/24 03/31/24 Pantoprazole Sodium 20 mg PO DAILY 03/31/24 03/31/24 Quetiapine Fumarate [Seroquel] 50 mg PO HS 03/31/24 03/31/24 Simethicone [Gas Relief] 180 mg ORAL DAILY PRN 03/31/24 03/31/24 Sucralfate [Carafate] 1 gm PO QID 03/31/24 03/31/24 Tizanidine HCl 2 mg PO Q8HR PRN 03/31/24 03/31/24 Ubidecarenone [Co Q-10] 100 mg PO DAILY 03/31/24 03/31/24 dilTIAZem HCL [Diltiazem HCl] 60 mg ORAL Q6HR PRN 03/31/24 03/31/24 diltiaZEM [Cardizem] 30 mg PO DAILY PM 03/31/24 03/31/24 oxyCODONE [Roxicodone] 5 mg PO Q8H PRN #20 tablet 03/31/24 Hyoscyamine [Levsin] 0.125 mg SL BID #20 tablet 04/01/24 - Allergies Allergies/Adverse Reactions: Allergies Allergy/AdvReac Type Severity Reaction Status Date / Time desvenlafaxine Allergy Mild Headache Verified 03/31/24 15:26 [Desvenlafaxine] phenobarbital Allergy Mild depression Verified 03/31/24 15:26 desvenlafaxine succinate * Allergy Unknown Unknown Verified 03/31/24 15:26 [From Pristiq] bupropion HCl * Allergy Headache Verified 03/31/24 15:26 [From Wellbutrin] ibuprofen Allergy Unknown Verified 03/31/24 15:26 lidocaine Allergy Unknown Verified 03/31/24 15:26 morphine Allergy Anaphylaxis Verified 03/31/24 15:26 propoxyphene HCl * Allergy Headache Verified 03/31/24 15:26 [From Darvon] adhesive tape AdvReac Rash Verified 03/31/24 15:26 aripiprazole [From Abilify] AdvReac tremors Verified 03/31/24 15:26 citalopram AdvReac Headache Verified 03/31/24 15:26 indomethacin AdvReac unknown Verified 03/31/24 15:26 tramadol AdvReac Itching Verified 03/31/24 15:26 - Social History Does the pt smoke?: No Smoking Status: Never smoker Does the pt drink ETOH?: Yes Does the pt have substance abuse?: No - Immunizations Immunizations are current?: Yes - POLST Patient has POLST: Yes POLST Status: Full Code PD ED PE NORMAL - Vitals Vital signs reviewed: Yes - General General: Alert and oriented X 3, No acute distress - Extremities Extremities: Other (I am not able to identify a puncture wound in the area she points to on the bottom of the foot. No tenderness.) - Neuro Neuro: Alert and oriented X 3 Results - Vitals Vitals: Vital Signs - 24 hr 04/15/24 16:10 Temperature 36.1 C L Heart Rate 73 Respiratory 16 Rate Blood Pressure 147/81 H O2 Saturation 97 Oxygen O2 Source Room air PD Medical Decision Making - ED course ED course: She has a plantar puncture wound although it is quite small I am not able to identify it. Tetanus was updated. He did not go through the shoe so the risk of infection is low. Departure - Departure Disposition: 01 Home, Self Care Clinical Impression: Puncture wound of plantar aspect of right foot Condition: Good Record reviewed to determine appropriate education?: Yes Instructions: ED Wound Puncture General Comments: Note for your records that you received a Tdap shot today. Keep an eye on it for signs of infection and return for redness, swelling, drainage, increased pain, fevers.
[2024-04-15] MEDS: TETANUS/DIPHTHERIA/PERTUSSIS 0.5 ML SYRINGE IM ONE (16:38)
== END 2024-04-15 16:49 | disposition home or self-care (01) ==
LOC: ED 16:03
DX: S91.331A Puncture wound without foreign body, right foot, initial encounter (principal); W22.8XXA Striking against or struck by other objects, initial encounter; Z23 Encounter for immunization; I10 Essential (primary) hypertension; E78.00 Pure hypercholesterolemia, unspecified; I25.10 Atherosclerotic heart disease of native coronary artery without angina pectoris; I25.2 Old myocardial infarction; Z79.899 Other long term (current) drug therapy
CPT/HCPCS: 90471; 99282; 99283